=== PATIENT | male | born 1935 | race Caucasian/White ===

== ENCOUNTER 2017-02-10 15:56 | Inpatient (IN) | payer OTHER ==
--- NOTE | 2017-02-10 17:04 | DR.GENAD ---
HPI - PCP Primary Care Physician: KAIDEN PINK - HPI Comment HPI Comment: FELL FRIDAY AND IS COMPLAINING OF RIGHT LOWER CHEST PAIN. HEAD CT DONE IN [place] DID NOT REPORT ACUTE FINDINGS EXCEPT SINUSITIS. CURRENTLY ON AUGMENTIN FOR THE SAME. PATIENTSAID DIZZINESS FROM VERTIGO IS CAUSING HIM TO FALL. - Complaint/Symptoms Chief Complaint Doctors Comments: GENERALIZE WEAKNESS, VERTIGO AND ANOREXIA TIMES TWO WEEKS. Chief Complaint:: PT'S STATES " HE HAD VERTIGO IN EARLY JANUARY AND HE WAS SEEN IN [place] ER AND HE WAS DX WITH SINUSITIS AND HE HAS BEEN WEAK, FALLING , AND NOT WANTING TO EAT".... Self Treatment fo Chief Complaint: PT C/O RIGHT RIB PAIN WHEN HE COUGHS... - Nurses notes reviewed Nurses Notes Review: Yes - Source History Provided: Patient - Mode of Arrival Mode of Arrival: Wheelchair - Timing Onset of Chief Complaint: 01/29/17 Came on: Suddenly - Duration Duration: Constant Duration: Days - Severity Severity: Moderate PMH - PMH Past Medical History: Yes Past Medical History: Alzheimers, Hypertension Past Medical History Comment: HIGH CHOLESTEROL.. Past Surgical History: Yes Past Surgical History Comment: HEMEROIDECTOMY, FACIAL SURGERY ..... - Family History History of Family Medical Conditions: No - Social History Does patient currently use any type of tobacco product: No Have you used tobacco products in the last 12 months: No Type of Tobacco Use: None Does any household member use tobacco: No Alcohol Use: None Do you use any recreational Drugs:: No Lives Where: Home - infectious screening In the last 2 months have you had wt loss of >10#?: YES Have you had fever, night sweats or hemotysis?: No Have you traveled outside the country in the last 6 months?: No Isolation: Standard ROS - Review of Systems Constitutional: Weakness, Fatigue, Loss of Appetite. negative: Chills, Fever Eyes: Other (CLOSE EYES TO IMPROVE VERTIGO.). negative: Eye Pain, Discharge ENTM: No Symptoms Reported. negative: Ear Pain, Nose Discharge, Nose Congestion , Throat Pain Respiratoy: Non-Productive Cough. negative: Short of Breath, Wheezing, Hemoptysis Cardiovascular: Chest Pain Gastrointestinal/Abdominal: Abdominal Pain (RIGHT UPPER), Nausea. negative: Vomiting Genitourinary: No Symptoms Reported Neurological: Weakness, Dizziness. negative: Headache Musculoskeletal: Muscle Pain Integumentary: No Symptoms Reported Hematologic/Lymphatic: No Symptoms Reported Endocrine: No Symptoms Reported All Other Systems: Reviewed and Negative PE - Vital Signs Vitals: Temperature 99.1 F Pulse Rate 134 Respiratory Rate 20 Blood Pressure 110/78 O2 Sat by Pulse Oximetry 98 - General Limitations: No Limitations General Appearance: Alert - Head Head Exam: Normal Inspection - Eyes Eye exam: Normal Appearance - ENT ENT Exam: Normal External Ear Exam External Ear Exam: Normal External Inspection TM/Canal Exam: Bilateral Normal Nose Exam: Normal Nose Exam Mouth Exam: Normal Inspection Throat Exam: Normal Inspection - Neck Neck Exam: Trachea Midline - Chest Chest Inspection: Symmetric Chest Wall Rise - Respiratory Respiratory Exam: Normal Lung Sounds Bilat Respiratory Exam: Bilateral Clear to Auscultation - Cardiovascular Cardiovascular Exam: Regular Rate, Normal Rhythm, Normal Heart Sounds - Abdominal Exam Abdominal Exam: Normal Bowel Sounds, Soft. negative: Tenderness - Extremities Extremities Exam: Normal Inspection - Back Back Exam: Normal Inspection - Neurologic Neurological Exam: Alert, Oriented X3, CN II-XII Intact, Reflexes Normal. negative: Motor Sensory Deficit - Psychiatric Psychiatric Exam: Normal Affect, Normal Mood - Skin Skin Exam: Normal Color MDM - Additional Information Additional Information Obtained From: Family - Differential Diagnosis Differential Diagnosis: VERTIGO, RIB FRACTURES, PULMONARY CONTUSION, DEHYDRATION , PNEUMONIA Course - Treatment Treatment: SEE ORDERS - Consultation Consultation Comments: DISCUSS PATIENT WITH DR. RICHEY. HE WILL ADMIT PATIENT. - Education/Counseling Education/Counseling: Patient, Family, Education Educated On: Treatment, Diagnosis ROR - Labs Reviewed Laboratory Results Reviewed?: Yes Result Diagrams: 02/10/17 17:10 02/10/17 17:10 Laboratory: WBC 8.7 X10^3/uL (3.6-10.0) 02/10/17 17:10 RBC 4.90 X10^6/uL (4.7-6.0) 02/10/17 17:10 Hgb 14.7 g/dL (13.5-18.0) 02/10/17 17:10 Hct 43.9 % (42.0-54.0) 02/10/17 17:10 MCV 89.5 fL (80.0-100.0) 02/10/17 17:10 MCH 30.0 pg (27.0-34.0) 02/10/17 17:10 MCHC 33.5 g/dL (33.0-35.0) 02/10/17 17:10 RDW 15.4 % (11.6-16.5) 02/10/17 17:10 Plt Count 191 X10^3/uL (150.0-450.0) 02/10/17 17:10 MPV 8.2 fL (7.4-11.0) 02/10/17 17:10 Neut % 83.0 % (42.0-75.0) H 02/10/17 17:10 Lymph % 8.5 % (21.0-51.0) L 02/10/17 17:10 [place] % 6.4 % (0.0-13.0) 02/10/17 17:10 Eos % 1.4 % (0.9-2.9) 02/10/17 17:10 Baso % 0.7 % (0.2-1.0) 02/10/17 17:10 Neut # 7.2 x10^3/uL (2.2-4.8) H 02/10/17 17:10 Lymph # 0.7 X10^3/uL (1.3-2.9) L 02/10/17 17:10 [place] # 0.6 x10^3/uL (0.3-0.8) 02/10/17 17:10 Eos # 0.1 x10^3/uL (0.0-0.2) 02/10/17 17:10 Baso # 0.1 X10^3/uL (0.0-0.1) 02/10/17 17:10 Absolute Nucleated RBC 0.0 /100WBC 02/10/17 17:10 Sodium 138 mmol/L (136-145) 02/10/17 17:10 Corrected Sodium 139 mmol/L (136-145) 02/10/17 17:10 Potassium 4.3 mmol/L (3.5-5.1) 02/10/17 17:10 Chloride 102 mmol/L (98-107) 02/10/17 17:10 Carbon Dioxide 25.6 mmol/L (21-32) 02/10/17 17:10 BUN 23 mg/dL (7-18) H 02/10/17 17:10 Creatinine 1.55 mg/dL (0.70-1.30) H 02/10/17 17:10 Est GFR (MDRD) Af Amer 55 (>60) L 02/10/17 17:10 Est GFR (MDRD) Non-Af 46 (>60) L 02/10/17 17:10 Glucose 126 mg/dL (65-99) H 02/10/17 17:10 Calcium 8.1 mg/dL (8.5-10.1) L 02/10/17 17:10 Corrected Calcium 9.1 mg/dL (8.5-10.1) 02/10/17 17:10 Total Bilirubin 0.40 mg/dL (0.2-1.0) 02/10/17 17:10 AST 33 Units/L (15-37) 02/10/17 17:10 ALT 114 Units/L (12-78) H 02/10/17 17:10 Alkaline Phosphatase 103 Units/L (46-116) 02/10/17 17:10 Creatine Kinase 22 Units/L (39-308) L 02/10/17 17:10 CK-MB (CK-2) < 1.0 ng/mL (0-4.0) 02/10/17 17:10 CK/CKMB % Calc 4.6 % (<4) 02/10/17 17:10 Troponin I < 0.02 ng/mL (0-1.5) 02/10/17 17:10 B-Natriuretic Peptide 20.7 pg/mL (0-79) 02/10/17 17:10 Total Protein 6.7 g/dL (6.4-8.2) 02/10/17 17:10 Albumin 2.7 g/dL (3.4-5.0) L 02/10/17 17:10 Globulin 4.0 g/dL (2.5-4.5) 02/10/17 17:10 Albumin/Globulin Ratio 0.7 Ratio (1.1-2.1) L 02/10/17 17:10 Specimen Type Clean catch urine 02/10/17 18:23 Urine Color Yellow (YELLOW) 02/10/17 18:23 Urine Appearance Hazy (CLEAR) 02/10/17 18:23 Urine pH 5.0 (5.0 - 8.0) 02/10/17 18:23 Ur Specific [place] 1.025 (1.000-1.030) 02/10/17 18:23 Urine Protein 1+ (NEGATIVE) 02/10/17 18:23 Urine Glucose (UA) Negative (NEGATIVE) 02/10/17 18:23 Urine Ketones Negative (NEGATIVE) 02/10/17 18:23 Urine Occult Blood 1+ (NEGATIVE) 02/10/17 18:23 Urine Nitrite Negative (NEGATIVE) 02/10/17 18:23 Urine Bilirubin Negative (NEGATIVE) 02/10/17 18:23 Urine Urobilinogen Normal (NORMAL) 02/10/17 18:23 Ur Leukocyte Esterase Negative (NEGATIVE) 02/10/17 18:23 Urine RBC Rare /HPF (NEGATIVE) 02/10/17 18:23 Urine WBC Rare /HPF (NEGATIVE) 02/10/17 18:23 Ur Squamous Epith Cells Rare /HPF (NEGATIVE) 02/10/17 18:23 Urine Bacteria Negative /HPF (NEGATIVE) 02/10/17 18:23 Ur Culture Indicated? No/not indicated 02/10/17 18:23 - XRAY XRAY Interpreted by: Radiologist XRAY Findings: REPORT DISCUSS WITH PATIENT AND HIS FAMILY. - EKG Rhythm: ST - Diagnosis Discharge Problem: Sinusitis, Chest pain, Dehydration, Right rib fracture, Pulmonary contusion - Discharge Plan Disposition: ADMITTED INPATIENT Condition: Stable - Follow ups/Referrals - Instructions
[2017-02-10 17:29] LABS: BASOPHILS # (AUTO) 0.1 X10^3/uL (0.0-0.1); BASOPHILS % (AUTO) 0.7 % (0.2-1.0); EOSINOPHILS # (AUTO) 0.1 x10^3/uL (0.0-0.2); EOSINOPHILS % (AUTO) 1.4 % (0.9-2.9); HEMATOCRIT 43.9 % (42.0-54.0); HEMOGLOBIN 14.7 g/dL (13.5-18.0); LYMPHOCYTES # (AUTO) 0.7 X10^3/uL (1.3-2.9); LYMPHOCYTES % (AUTO) 8.5 % (21.0-51.0); MEAN CORPUSCULAR HGB CONC 33.5 g/dL (33.0-35.0); MEAN CORPUSCULAR VOLUME 89.5 fL (80.0-100.0); MEAN PLATELET VOLUME 8.2 fL (7.4-11.0); MONOCYTES # (AUTO) 0.6 x10^3/uL (0.3-0.8); MONOCYTES % (AUTO) 6.4 % (0.0-13.0); NEUTROPHILS # (AUTO) 7.2 x10^3/uL (2.2-4.8); PLATELET COUNT 191 X10^3/uL (150.0-450.0); RED CELL DISTRIBUTION WIDTH 15.4 % (11.6-16.5); WHITE BLOOD COUNT 8.7 X10^3/uL (3.6-10.0)
[2017-02-10 17:47] LABS: BLOOD UREA NITROGEN 23 mg/dL (7-18); CALCIUM 8.1 mg/dL (8.5-10.1); CARBON DIOXIDE 25.6 mmol/L (21-32); CHLORIDE 102 mmol/L (98-107); COR NA(FOR HYPERGLY) 139 mmol/L (136-145); CREATININE 1.55 mg/dL (0.70-1.30); GLUCOSE 126 mg/dL (65-99); SODIUM 138 mmol/L (136-145); TROPONIN I < 0.02 ng/mL (0-1.5); eGFR BLACK RACES 55 (>60); eGFR NON BLACK RACES 46 (>60)
[2017-02-10 17:51] LABS: ALANINE AMINOTRANSFERASE 114 Units/L (12-78); ALBUMIN 2.7 g/dL (3.4-5.0); ALKALINE PHOSPHATASE 103 Units/L (46-116); ASPARTATE AMINO TRANSFERASE 33 Units/L (15-37); CKMB % 4.6 % (<4); COR CA(FOR HYPOALB) 9.1 mg/dL (8.5-10.1); CREATINE KINASE 22 Units/L (39-308); CREATINE KINASE MB < 1.0 ng/mL (0-4.0); TOTAL PROTEIN 6.7 g/dL (6.4-8.2)
[2017-02-10 17:53] LABS: B-TYPE NATRIURETIC PEPTIDE 20.7 pg/mL (0-79)
[2017-02-10] MEDS ORDERED: NS 1000 ML 1,000 ML ONE (17:59)
[2017-02-10] MEDS: NS 1000 ML 1,000 ML IV SCH (18:02)
--- NOTE | 2017-02-10 18:24 | CT ---
HISTORY: Right-sided rib pain. Study: CT chest without contrast Comparison: No recent comparisons Technique: Multiple axial images of the chest were obtained from the thoracic inlet to the upper abd omen without the administration of IV contrast. Findings: The mediastinum does not demonstrate significant pathological lymphadenopathy. There is no pericard ial effusion observed. The thoracic aorta is normal in its contour without evidence for aneurysmal dilatation. Evaluation of the lung parenchyma nonspecific upper lobe ground-glass changes; right gr eater than left, which can be seen with pulmonary contusions in the setting of trauma. No pulmonary laceration or pneumothorax is seen, however. Bibasilar atelectasis is also observed. Multiple calcif ied mediastinal or hilar lymph nodes would imply prior granulomatous exposure. There are subtle and nondisplaced right lateral 10th and 11th rib fractures, age indeterminate. No other fracture or othe r acute bony injury is seen. There is mild spinal spondylosis appreciated. No pulmonary nodule or ma ss can be identified. No other fractures observed. The visualized portions of the upper abdomen ar e grossly unremarkable. IMPRESSION: Nonspecific upper lobe ground-glass changes; right greater than left, which can be seen with pulmonary contusions in the setting of trauma. No pulmonary laceration or pneumothorax is seen, however. Bibasilar atelectasis is also observed. Subtle and nondisplaced right lateral 10th and 11th rib fractures, age indeterminate. No other fracture or other acute cardiopulmonary abnormality is otherwise seen. Reported By:
[2017-02-10 18:36] LABS: BILIRUBIN,URINE NEGATIVE (NEGATIVE); BLOOD/HEMOGLOBIN,URINE 1+ (NEGATIVE); GLUCOSE, URINE NEGATIVE (NEGATIVE); KETONES,URINE NEGATIVE (NEGATIVE); LEUKOCYTE ESTERASE ,URINE NEGATIVE (NEGATIVE); NITRITES,URINE NEGATIVE (NEGATIVE); PROTEIN,URINE 1+ (NEGATIVE); UROBILINOGEN,URINE NORMAL (NORMAL)
[2017-02-10 18:41] LABS: APPEARANCE,URINE HAZY (CLEAR); COLOR,URINE YELLOW (YELLOW)
[2017-02-10 18:45] LABS: BACTERIA,URINE NEGATIVE /HPF (NEGATIVE); RBC,URINE RARE /HPF (NEGATIVE); SQUAMOUS EPITHELIAL CELL,UR RARE /HPF (NEGATIVE)
[2017-02-10] MEDS ORDERED: TUSSIONEX PENNKINETIC SUSP PO ONE (20:30)
[2017-02-10] MEDS ORDERED: TUSSIONEX PENNKINETIC SUSP ONE (20:32)
[2017-02-10] MEDS ORDERED: TUSSIONEX PENNKINETIC SUSP PO PRN (21:05)
[2017-02-10] MEDS: ZOSYN VIAL 3.375 GM 3.375 GM in NS 100 ML IV + SPIKE MINIBAG* 100 ML IV SCH (22:05)
[2017-02-10] MEDS: NEURONTIN CAP 100 MG PO SCH (22:05)
[2017-02-10 23:02] VITALS: BMI 22.2
[2017-02-10] MEDS ORDERED: AFLURIA IM ONE (23:02)
[2017-02-10] MEDS ORDERED: PREVNAR 13 IM ONE (23:02)
[2017-02-10 23:42] LABS: CKMB % 4.2 % (<4); CREATINE KINASE 24 Units/L (39-308); CREATINE KINASE MB < 1.0 ng/mL (0-4.0); TROPONIN I < 0.02 ng/mL (0-1.5)
[2017-02-11] MEDS: NS 1000 ML 1,000 ML IV SCH (02:30)
[2017-02-11] MEDS: NEURONTIN CAP 100 MG PO SCH ×3 (06:09→22:20)
[2017-02-11] MEDS: ZOSYN VIAL 3.375 GM 3.375 GM in NS 100 ML IV + SPIKE MINIBAG* 100 ML IV SCH ×3 (06:09→22:15)
[2017-02-11 06:25] LABS: ALANINE AMINOTRANSFERASE 82 Units/L (12-78); ALBUMIN 2.1 g/dL (3.4-5.0); ALKALINE PHOSPHATASE 86 Units/L (46-116); ASPARTATE AMINO TRANSFERASE 31 Units/L (15-37); BLOOD UREA NITROGEN 24 mg/dL (7-18); CALCIUM 7.5 mg/dL (8.5-10.1); CARBON DIOXIDE 25.7 mmol/L (21-32); CHLORIDE 108 mmol/L (98-107); CREATININE 1.35 mg/dL (0.70-1.30); GLUCOSE 110 mg/dL (65-99); SODIUM 140 mmol/L (136-145); TOTAL PROTEIN 5.5 g/dL (6.4-8.2); eGFR BLACK RACES > 60 (>60); eGFR NON BLACK RACES 54 (>60)
[2017-02-11 06:47] LABS: BASOPHILS # (AUTO) 0.1 X10^3/uL (0.0-0.1); BASOPHILS % (AUTO) 0.7 % (0.2-1.0); EOSINOPHILS # (AUTO) 0.2 x10^3/uL (0.0-0.2); EOSINOPHILS % (AUTO) 2.5 % (0.9-2.9); HEMATOCRIT 37.9 % (42.0-54.0); HEMOGLOBIN 12.7 g/dL (13.5-18.0); LYMPHOCYTES # (AUTO) 0.9 X10^3/uL (1.3-2.9); LYMPHOCYTES % (AUTO) 10.4 % (21.0-51.0); MEAN CORPUSCULAR HEMOGLOBIN 30.4 pg (27.0-34.0); MEAN CORPUSCULAR HGB CONC 33.6 g/dL (33.0-35.0); MEAN CORPUSCULAR VOLUME 90.4 fL (80.0-100.0); MEAN PLATELET VOLUME 8.2 fL (7.4-11.0); MONOCYTES # (AUTO) 0.6 x10^3/uL (0.3-0.8); MONOCYTES % (AUTO) 6.8 % (0.0-13.0); NEUTROPHILS # (AUTO) 6.9 x10^3/uL (2.2-4.8); NEUTROPHILS % (AUTO) 79.6 % (42.0-75.0); PLATELET COUNT 141 X10^3/uL (150.0-450.0); RED BLOOD COUNT 4.19 X10^6/uL (4.7-6.0); RED CELL DISTRIBUTION WIDTH 15.4 % (11.6-16.5); WHITE BLOOD COUNT 8.7 X10^3/uL (3.6-10.0)
[2017-02-11 06:50] LABS: CKMB % 2.6 % (<4); CREATINE KINASE 38 Units/L (39-308); TROPONIN I < 0.02 ng/mL (0-1.5)
[2017-02-11 06:58] LABS: PLATELET MORPHOLOGY COMMENT NORMAL (NORMAL)
[2017-02-11] MEDS ORDERED: ALLEGRA ONE (08:16)
[2017-02-11] MEDS: TEKTURNA PO SCH (08:20)
[2017-02-11] MEDS: ASPIRIN EC 81 MG PO SCH (08:20)
[2017-02-11] MEDS: NAMENDA TAB 10 MG PO SCH (08:20)
[2017-02-11] MEDS: ALLEGRA PO SCH (08:20)
[2017-02-11] MEDS ORDERED: PROCALAMINE 3 % 1,000 ML IV SCH (10:00)
[2017-02-11] MEDS: ALBUMIN HUMAN 25%- 100ML 100 ML IV SCH (10:21)
[2017-02-11] MEDS: PROTONIX INJ 40 MG VIAL IVP SCH (10:21)
[2017-02-11] MEDS ORDERED: HUMULIN R SUBCUT PRN (11:00)
[2017-02-11] MEDS ORDERED: CLINIMIX 4.25 %/10 % 1,000 ML with MVI INJ (ADULT) 10 ML, TRACE ELEMENTS INJ 10 ML, TPN... IV SCH ×6 (11:00)
[2017-02-11] MEDS ORDERED: NS 1000 ML 1,000 ML IV SCH (11:00)
[2017-02-11] MEDS: CLINIMIX 4.25 %/10 % 1,000 ML with MVI INJ (ADULT) 10 ML, TRACE ELEMENTS INJ 10 ML, TPN... IV SCH ×6 (12:32)
--- NOTE | 2017-02-11 16:01 | DR.H&P ---
H&P - History & Physical for Day of: H&P Date: 02/10/17 - Chief Complaint Chief Complaint: DIZZINESS, UNSTEADY GAIT, FREQUENT FALLS - Allergies Allergies/Adverse Reactions: Allergies Allergy/AdvReac Type Severity Reaction Status Date / Time Codeine Allergy Verified 02/10/17 16:02 - History of Present Illness History of Present Illness: THIS IS AN 81 YEAR OLD MALE, WHO IS A PATIENT OF OURS. HE PRESENTS TO THE EMERGENCY ROOM WITH COMPLAINTS OF DIZZINESS, UNSTEADY GAIT, FREQUENT FALLS, AND GENERALIZED WEAKNESS. PATIENTS REPORTS PATIENT HAD VERTIGO IN [place] THIS MONTH AND WAS SEEN IN [place] ER AND WAS DIAGNOSED WITH SINUSITIS AND IS CURRENTLY BEING TREATED WITH AUGMENTIN. REPORTS PATIENT HAS ALSO HAD POOR APPETITE. PATIENT REPORTS A RECENT FALL AT HOME ON FRIDAY OF LAST WEEK AND IS COMPLAINING OF RIGHT RIB PAIN WHEN COUGHING OR DEEP BREATHING. PATIENT REPORTS DIZZINESS FROM VERTIGO IS CAUSING HIM TO FALL. HE IS ALSO REPORTING RIGHT UPPER QUADRANT ABDOMINAL PAIN. LABS AND CT OBTAINED. CT OF CHEST WITHOUT CONTRAST REPORTS NONSPECIFIC UPPER LOBE GROUND-GLASS CHANGES WHICH IS SEEN WITH PULMONARY CONTUSIONS IN THE SETTING OF TRAUMA; SUBTLE AND NON-DISPLACED RIGHT LATERAL 10TH AND 11TH RIB FRACTURES. CBC WNL. CMP WNL EXCEPT: BUN/CREAT 23/1.55, GFR 46, GLUCOSE 126, CALCIUM 8.1, ALBUMIN 2.7. CARDIAC ENZYMES WNL. WE WILL ADMIT PATIENT FOR FURTHER TREATMENT AND EVALUATION. WE WILL FOLLOW UP IN AM WITH LABS. - Past Medical History Past Medical History: Alzheimers, Arthritis, Dementia, Hypertension Additional Medical History: Cataracts, Ear Infections, Pancreatitis, Painful Urination, Back Pain, Previous Blood Transfusion - Past Surgical History Additional Surgical History: Hemmorhoidectomy, Facial Reconstructive Surgery - Family History Family Medical History: Diabetes Mellitus, NC - Social History Does patient currently use any type of tobacco product: No Have you used tobacco products in the last 12 months: No Type of Tobacco Use: None Does any household member use tobacco: No Alcohol Use: None Drug Use: None - Medications Home Medications: Aliskiren Fumarate [TEKTURNA 150 MG *] 1 tab PO DAILY 02/10/17 [History Confirmed 02/10/17] Aspirin [Aspirin Adult Low Dose] 1 tab PO DAILY 02/10/17 [History Confirmed ] Gabapentin [NEURONTIN CAP 100 MG *] 1 tab PO TID 02/10/17 [History Confirmed ] Memantine HCl [NAMENDA 10 MG *] 1 tab PO DAILY 02/10/17 [History Confirmed 02/10] RX: Donepezil Hydrochloride [ARICEPT TAB 10 MG *] 1 tab PO HS 02/10/17 [History Confirmed 02/10/17] RX: Fexofenadine HCl 1 tab PO DAILY 02/10/17 [History Confirmed 02/10/17] RX: Simvastatin 1 tab PO HS 02/10/17 [History Confirmed 02/10/17] - Review of Systems Constitutional: Weakness, Malaise Eyes: No Symptoms Reported. denies: Pain, Vision Change, Conjunctivae Inflammation, Eyelid Inflammation, Redness ENT: Nose Discharge, Nose Congestion. denies: Ear Pain, Ear Discharge, Nose Pain, Mouth Pain, Mouth Swelling, Throat Pain, Throat Swelling Respiratory: Cough. denies: Shortness of Breath, Hemoptysis, SOB with Excertion , Pleuritic Pain, Sputum, Wheezing Cardiovascular: Chest Pain. denies: Palpitations, Orthopnea, Paroxysmal Noc. Dyspnea, Edema, Light Headedness Gastrointestinal: No Symptoms Reported. denies: Nausea, Vomiting, Abdominal Pain, Diarrhea, Constipation, Melena, Hematochezia Genitourinary: No Symptoms Reported. denies: Dysuria, Frequency, Retention Musculoskeletal: Other (Right Rib Pain). denies: Shoulder Pain, Arm Pain Skin: No Symptoms Reported. denies: Rash, Lesions, Jaundice, Bruising, Wound, Ecchymosis Neurological: Other (Dizziness) - Physical Exam Vital Signs: Temperature 99.3 F Pulse Rate [Left Brachial] 104 Respiratory Rate 20 Blood Pressure [Left Arm] 131/74 O2 Sat by Pulse Oximetry 94 Oriented: Normal, Time, Person, Place Eyes: Normal. negative: Blurred Vision, Diplopia, Discharge, Pain, Redness, Photophobia Ear: Normal. negative: Swelling, Ecchymosis, Hemotypanum, Abrasion, Laceration Nose: Normal. negative: Injected, Discharge, Blood Throat: Normal. negative: Tonsillar Hypertrophy, Red, Exudate Respiratory: Diminished Throughout Cardiovascular: Normal. negative: Murmur, Edema : Normal. negative: Dysuria, Hematuria, Frequency, Discharge, Testicular Pain Auscultation: Bowel Sounds: Decreased. negative: Bruit Palpation: Normal. negative: Spleen Enlarged, Liver Enlarged, Mass Pulsatile Tenderness: Diffuse, Moderate. negative: Rebound, Guarding, Rigidity Skin: Decreased Turgur. negative: Diaphoresis, Wound, Bruising, Ecchymosis Musculoskeletal: Tender (Tenderness to Right Chest Wall), Instability Psychiatric: Normal Mood Description: Calm, Appropriate Affect: Normal Speech Pattern: Clear, Appropriate - Assessment/Plan (1) Chest pain Qualifiers: Chest pain type: C Ischemic chest pain type: I Status: Acute Plan: ADMIT PATIENT, MONITOR ON TELEMETRY, SERIAL CARDIAC ENZYMES AND EKG'S, MONITOR. (2) Dehydration Status: Acute Plan: START IV FLUIDS, MONITOR LABS. (3) Pulmonary contusion Qualifiers: Encounter type: initial encounter Laterality: right Qualified Code(s): S27.321A - Contusion of lung, unilateral, initial encounter Status: Acute Plan: CONTINUE TO MONITOR. (4) Right rib fracture Qualifiers: Encounter type: initial encounter Rib fracture type: multiple ribs Fracture type: closed Fracture healing: F Qualified Code(s): S22.41XA - Multiple fractures of ribs, right side, initial encounter for closed fracture Status: Acute Plan: PAIN MANAGMENT, MONITOR. (5) Sinusitis Qualifiers: Sinusitis location: S Chronicity: C Recurrence: R Status: Acute Plan: START ZOSYN, MONITOR. (6) Poor appetite Status: Acute (7) Back pain Qualifiers: Back pain location: B Chronicity: C Back pain laterality: B Sciatica presence: S Sciatica laterality: S Status: Chronic (8) Dementia Qualifiers: Dementia type: D Alzheimer's disease onset: A Dementia behavioral disturbance: D Status: Chronic (9) Arthritis Status: Chronic
--- NOTE | 2017-02-11 17:18 | PCM.PROG ---
Progress Note - Progress Note for Day of Date: 02/11/17 - Subjective Subjective: PATIENT RESTS IN BED, AT BEDSIDE. PATIENT CONTINUES WITH WEAKNESS AND FATIGUE. HE REPORTS DIZZINESS CONTINUES WITH NO IMPROVEMENT IN SYMPTOMS. HE CONTINUES WITH UNSTEADY GAIT. HE ALSO REPORTS FREQUENT URINATION , ALONG WITH PAIN. PATIENT REPORTS RIGHT RIB PAIN CONTINUES WITH DIFFICULTY COUGHING OR DEEP BREATHING. REPORTS PATIENT ALSO CONTINUES WITH POOR APPETITE. CBC WNL EXCEPT: H/H 12.7/37.9, PLT COUNT 141. CMP WNL EXCEPT: CHL 108, BUN/CREAT 24/1.35, GFR 54, GLUCOSE 110, CALCIUM 7.5, TOT PROTEIN 5.5, ALBUMIN 2.1. WE WILL START ALBUMIN, PROCALAMINE, FLOMAX, TORADOL, AND OBTAIN MRI OF BRAIN. - Past Medical Family Social History Past Med/Fam/Surg Hx: No changes since H&P Allergies: Allergies Codeine Allergy (Verified 02/10/17 16:02) - Review of Systems ROS: No change since H&P - Vital Signs and I&O's Vital Signs: Temperature 99.3 F Pulse Rate [Left Brachial] 104 Respiratory Rate 20 Blood Pressure [Left Arm] 131/74 O2 Sat by Pulse Oximetry 94 Intake and Output: Intake & Output 02/09/17 02/10/17 02/11/17 02/12/17 11:59 11:59 11:59 11:59 Intake Total 1526 Output Total 300 Balance 1226 - Physical Exam Oriented: Normal, Time, Person, Place Eyes: Normal. negative: Blurred Vision, Diplopia, Discharge, Pain, Redness, Photophobia Ear: Normal. negative: Swelling, Ecchymosis, Hemotypanum, Abrasion, Laceration Nose: Normal. negative: Injected, Discharge, Blood Throat: Normal. negative: Tonsillar Hypertrophy, Red, Exudate Cardiovascular: Normal. negative: Murmur, Edema : Normal. negative: Dysuria, Hematuria, Frequency, Discharge, Testicular Pain Auscultation: Bowel Sounds: Decreased. negative: Bruit Palpation: Normal. negative: Spleen Enlarged, Liver Enlarged, Mass Pulsatile Tenderness: Diffuse, Moderate. negative: Rebound, Guarding, Rigidity Skin: Decreased Turgur. negative: Diaphoresis, Wound, Bruising, Ecchymosis Musculoskeletal: Tender (Tenderness to Right Chest Wall), Instability Psychiatric: Normal Mood Description: Calm, Appropriate Affect: Normal Speech Pattern: Clear, Appropriate - Laboratory and Diagnostics Result Diagrams: 02/11/17 05:40 02/11/17 05:40 Labs: Laboratory WBC 8.7 X10^3/uL (3.6-10.0) 02/11/17 05:40 RBC 4.19 X10^6/uL (4.7-6.0) L 02/11/17 05:40 Hgb 12.7 g/dL (13.5-18.0) L 02/11/17 05:40 Hct 37.9 % (42.0-54.0) L 02/11/17 05:40 MCV 90.4 fL (80.0-100.0) 02/11/17 05:40 MCH 30.4 pg (27.0-34.0) 02/11/17 05:40 MCHC 33.6 g/dL (33.0-35.0) 02/11/17 05:40 RDW 15.4 % (11.6-16.5) 02/11/17 05:40 Plt Count 141 X10^3/uL (150.0-450.0) L 02/11/17 05:40 Plt Count Comment Adequate (ADEQUATE) 02/11/17 05:40 MPV 8.2 fL (7.4-11.0) 02/11/17 05:40 Neut % 79.6 % (42.0-75.0) H 02/11/17 05:40 Lymph % 10.4 % (21.0-51.0) L 02/11/17 05:40 [place] % 6.8 % (0.0-13.0) 02/11/17 05:40 Eos % 2.5 % (0.9-2.9) 02/11/17 05:40 Baso % 0.7 % (0.2-1.0) 02/11/17 05:40 Neut # 6.9 x10^3/uL (2.2-4.8) H 02/11/17 05:40 Lymph # 0.9 X10^3/uL (1.3-2.9) L 02/11/17 05:40 [place] # 0.6 x10^3/uL (0.3-0.8) 02/11/17 05:40 Eos # 0.2 x10^3/uL (0.0-0.2) 02/11/17 05:40 Baso # 0.1 X10^3/uL (0.0-0.1) 02/11/17 05:40 Absolute Nucleated RBC 0.0 /100WBC 02/11/17 05:40 Total Counted 100 02/11/17 05:40 Neutrophils % (Manual) 86 % (39-76) H 02/11/17 05:40 Lymphocytes % (Manual) 10 % (13-43) L 02/11/17 05:40 Monocytes % (Manual) 2 % (4-9) L 02/11/17 05:40 Eosinophils % (Manual) 2 % (0-6) 02/11/17 05:40 Plt Morphology Comment Normal (NORMAL) 02/11/17 05:40 RBC Morphology Normal (NORMAL) 02/11/17 05:40 Sodium 140 mmol/L (136-145) 02/11/17 05:40 Corrected Sodium TNP 02/11/17 05:40 Potassium 4.9 mmol/L (3.5-5.1) 02/11/17 05:40 Chloride 108 mmol/L (98-107) H 02/11/17 05:40 Carbon Dioxide 25.7 mmol/L (21-32) 02/11/17 05:40 BUN 24 mg/dL (7-18) H 02/11/17 05:40 Creatinine 1.35 mg/dL (0.70-1.30) H 02/11/17 05:40 Est GFR (MDRD) Af Amer > 60 (>60) 02/11/17 05:40 Est GFR (MDRD) Non-Af 54 (>60) L 02/11/17 05:40 Glucose 110 mg/dL (65-99) H 02/11/17 05:40 Calcium 7.5 mg/dL (8.5-10.1) L 02/11/17 05:40 Corrected Calcium 9.0 mg/dL (8.5-10.1) 02/11/17 05:40 Total Bilirubin 0.30 mg/dL (0.2-1.0) 02/11/17 05:40 AST 31 Units/L (15-37) 02/11/17 05:40 ALT 82 Units/L (12-78) H 02/11/17 05:40 Alkaline Phosphatase 86 Units/L (46-116) 02/11/17 05:40 Creatine Kinase 38 Units/L (39-308) L 02/11/17 05:40 CK-MB (CK-2) 1.0 ng/mL (0-4.0) 02/11/17 05:40 CK/CKMB % Calc 2.6 % (<4) 02/11/17 05:40 Troponin I < 0.02 ng/mL (0-1.5) 02/11/17 05:40 B-Natriuretic Peptide 20.7 pg/mL (0-79) 02/10/17 17:10 Total Protein 5.5 g/dL (6.4-8.2) L 02/11/17 05:40 Albumin 2.1 g/dL (3.4-5.0) L 02/11/17 05:40 Globulin 3.4 g/dL (2.5-4.5) 02/11/17 05:40 Albumin/Globulin Ratio 0.6 Ratio (1.1-2.1) L 02/11/17 05:40 Specimen Type Clean catch urine 02/10/17 18:23 Urine Color Yellow (YELLOW) 02/10/17 18:23 Urine Appearance Hazy (CLEAR) 02/10/17 18:23 Urine pH 5.0 (5.0 - 8.0) 02/10/17 18:23 Ur Specific [place] 1.025 (1.000-1.030) 02/10/17 18:23 Urine Protein 1+ (NEGATIVE) 02/10/17 18:23 Urine Glucose (UA) Negative (NEGATIVE) 02/10/17 18:23 Urine Ketones Negative (NEGATIVE) 02/10/17 18:23 Urine Occult Blood 1+ (NEGATIVE) 02/10/17 18:23 Urine Nitrite Negative (NEGATIVE) 02/10/17 18:23 Urine Bilirubin Negative (NEGATIVE) 02/10/17 18:23 Urine Urobilinogen Normal (NORMAL) 02/10/17 18:23 Ur Leukocyte Esterase Negative (NEGATIVE) 02/10/17 18:23 Urine RBC Rare /HPF (NEGATIVE) 02/10/17 18:23 Urine WBC Rare /HPF (NEGATIVE) 02/10/17 18:23 Ur Squamous Epith Cells Rare /HPF (NEGATIVE) 02/10/17 18:23 Urine Bacteria Negative /HPF (NEGATIVE) 02/10/17 18:23 Ur Culture Indicated? No/not indicated 02/10/17 18:23 - Plan (1) Dizziness Status: Acute Plan: OBTAIN MRI OF BRAIN, CONTINUE TO MONITOR. (2) Dehydration Status: Acute Plan: CONTINUE IV FLUIDS, MONITOR LABS. (3) Chest pain Status: Acute Qualifiers: Chest pain type: chest pain on breathing Ischemic chest pain type: I Qualified Code(s): R07.1 - Chest pain on breathing Plan: START TORADOL, CONTINUE MONITOR ON TELEMETRY, MONITOR. (4) Poor appetite Status: Acute Plan: START PROCALAMINE, ALBUMIN, MONITOR. (5) Hypoalbuminemia Status: Acute Plan: START ALBUMIN, MONITOR. (6) Pulmonary contusion Status: Acute Qualifiers: Encounter type: initial encounter Laterality: right Qualified Code(s): S27.321A - Contusion of lung, unilateral, initial encounter Plan: CONTINUE TO MONITOR. (7) Right rib fracture Status: Acute Qualifiers: Encounter type: initial encounter Rib fracture type: multiple ribs Fracture type: closed Fracture healing: F Qualified Code(s): S22.41XA - Multiple fractures of ribs, right side, initial encounter for closed fracture Plan: PAIN MANAGMENT, MONITOR. (8) Sinusitis Status: Acute Qualifiers: Sinusitis location: S Chronicity: C Recurrence: R Plan: CONTINUE ZOSYN, MONITOR. (9) Back pain Status: Chronic Qualifiers: Back pain location: B Chronicity: C Back pain laterality: B Sciatica presence: S Sciatica laterality: S (10) Dementia Status: Chronic Qualifiers: Dementia type: D Alzheimer's disease onset: A Dementia behavioral disturbance: D (11) Arthritis Status: Chronic
[2017-02-11] MEDS: ZOCOR TAB 40 MG PO SCH (20:54)
[2017-02-11] MEDS: ARICEPT TAB 10 MG PO SCH (20:54)
[2017-02-11] MEDS: FLOMAX PO SCH (20:54)
[2017-02-11] MEDS ORDERED: PREVNAR 13 IM ONE (21:15)
[2017-02-11] MEDS ORDERED: AFLURIA IM ONE (22:00)
[2017-02-11] MEDS: TORADOL 15 MG VIAL IVP PRN (23:16)
[2017-02-11] MEDS: TYLENOL 325 MG TAB PO PRN (23:17)
[2017-02-12] MEDS: CLINIMIX 4.25 %/10 % 1,000 ML with MVI INJ (ADULT) 10 ML, TRACE ELEMENTS INJ 10 ML, TPN... IV SCH ×18 (01:21→18:35)
[2017-02-12] MEDS: NEURONTIN CAP 100 MG PO SCH ×3 (05:50→21:02)
[2017-02-12] MEDS: ZOSYN VIAL 3.375 GM 3.375 GM in NS 100 ML IV + SPIKE MINIBAG* 100 ML IV SCH ×3 (05:51→21:02)
[2017-02-12 06:19] LABS: BASOPHILS % (AUTO) 0.3 % (0.2-1.0); EOSINOPHILS # (AUTO) 0.2 x10^3/uL (0.0-0.2); EOSINOPHILS % (AUTO) 2.6 % (0.9-2.9); HEMATOCRIT 32.1 % (42.0-54.0); LYMPHOCYTES # (AUTO) 0.8 X10^3/uL (1.3-2.9); LYMPHOCYTES % (AUTO) 11.7 % (21.0-51.0); MEAN CORPUSCULAR HEMOGLOBIN 30.6 pg (27.0-34.0); MEAN CORPUSCULAR HGB CONC 34.2 g/dL (33.0-35.0); MEAN CORPUSCULAR VOLUME 89.4 fL (80.0-100.0); MEAN PLATELET VOLUME 7.7 fL (7.4-11.0); MONOCYTES # (AUTO) 0.5 x10^3/uL (0.3-0.8); MONOCYTES % (AUTO) 6.5 % (0.0-13.0); NEUTROPHILS # (AUTO) 5.7 x10^3/uL (2.2-4.8); NEUTROPHILS % (AUTO) 78.9 % (42.0-75.0); PLATELET COUNT 158 X10^3/uL (150.0-450.0); RED BLOOD COUNT 3.59 X10^6/uL (4.7-6.0); RED CELL DISTRIBUTION WIDTH 15.4 % (11.6-16.5); WHITE BLOOD COUNT 7.2 X10^3/uL (3.6-10.0)
[2017-02-12 06:40] LABS: ALANINE AMINOTRANSFERASE 58 Units/L (12-78); ALBUMIN 2.3 g/dL (3.4-5.0); ALKALINE PHOSPHATASE 66 Units/L (46-116); ASPARTATE AMINO TRANSFERASE 22 Units/L (15-37); BLOOD UREA NITROGEN 29 mg/dL (7-18); CALCIUM 7.9 mg/dL (8.5-10.1); CARBON DIOXIDE 23.8 mmol/L (21-32); CHLORIDE 108 mmol/L (98-107); COR CA(FOR HYPOALB) 9.3 mg/dL (8.5-10.1); CREATININE 1.44 mg/dL (0.70-1.30); GLUCOSE 93 mg/dL (65-99); SODIUM 139 mmol/L (136-145); TOTAL PROTEIN 5.3 g/dL (6.4-8.2); eGFR BLACK RACES 60 (>60); eGFR NON BLACK RACES 50 (>60)
--- NOTE | 2017-02-12 06:45 | CT ---
HISTORY: Dizziness, sinusitis Study: CT sinuses without contrast Comparison: None Technique: Axial non contrast images with coronal and sagittal reformats. Dose reduction procedures were used with MA/kv adjusted for body size. Findings: The frontal, right ethmoid, right sphenoid, and left maxillary sinuses are clear. There is an air-fl uid level in a hypoplastic right maxillary sinus consistent with acute sinusitis. There is a small l eft sphenoid sinus retention cyst. There is inflammatory change in a left posterior ethmoid air cell . The ostiomeatal complexes are patent. There is leftward nasal septal deviation with a leftward dir ected a 5.4 millimeter septal spur. The middle ear spaces and mastoid air cells are clear. IMPRESSION: Acute right maxillary sinusitis in a hypoplastic right maxillary sinus Inflammatory mucosal changes in a left posterior ethmoid air cell 5 millimeter left sphenoid sinus retention cyst Leftward nasal septal deviation with a 5.4 millimeter leftward directed septal spur Reported By:
--- NOTE | 2017-02-12 07:07 | MRI ---
HISTORY: Dizziness, blurred vision Study: MRI of the brain done without and with IV gadolinium contrast materials Comparison: No priors Technique: Multiplanar multi-sequence MRI of the brain was obtained utilizing standard departmental protocol. Sagittal and axial T1 weighted images were obtained. Axial T2 and flair weighted images were performed as well. Axial diffusion weighted and ADC trace mapping was performed. Following adm inistration of 15 cubic centimeters of Omniscan contrast materials intravenously, T1 sequences were performed in axial and coronal planes. Findings: The midline structures appear unremarkable. The evaluation of the brain parenchyma demonstrates no abnormal signal characteristics to suggest intraparenchymal mass or hemorrhage. No extra-axial flui d collections are observed. Atrophic changes are present with prominent ventricles and accentuation of the cortical sulci. The CP angle is normal in its appearance without brainstem mass or evidence for acoustic neuroma. The flow voids on both T1 and T2 weighted imaging appear unremarkable. Evalu ation of the diffusion weighted imaging does not demonstrate abnormal signal characteristics to sugg est acute ischemic change. The extracranial structures are unremarkable. IMPRESSION: Mild and age-appropriate atrophic changes. No evidence of edema, mass or hemorrhage. No evidence of infarction is seen. Reported By:
--- NOTE | 2017-02-12 08:01 | MRI ---
HISTORY: Dizziness, blurred vision Study: MRA of the brain Comparison: No priors Technique: 3-D [id number] imaging of the intracranial circulation was performed. Findings: The anterior circulation demonstrates normal anatomic findings. The internal carotid artery, M1 seg ment, and A1 segments do not demonstrates atherosclerotic changes. No aneurysmal changes or evidenc e for vascular malformation can be identified. There is some asymmetry in the watershed branches the right MCA circulation . There are fewer small branches seen on the right side. The basilar artery a ppears small. This may be secondary to atherosclerotic change . Fortunately , the posterior cerebral vessels are largely supplied via a patent posterior communicating arteries bilaterally. Some asymme try is noted with less robust signals from the right distal posterior cerebral artery also. IMPRESSION: Decreased watershed branches involving the right MCA circulation. There is a small basilar artery wh ich may be secondary to atherosclerotic change. Fortunately the posterior cerebral vessels are large ly supplied via a patent posterior communicating arteries bilaterally. There is less robust signal f rom the right distal posterior cerebral artery also. Reported By:
[2017-02-12] MEDS ORDERED: ALLEGRA ONE (08:15)
[2017-02-12] MEDS: ALBUMIN HUMAN 25%- 100ML 100 ML IV SCH (08:36)
[2017-02-12] MEDS: PROTONIX INJ 40 MG VIAL IVP SCH (08:36)
[2017-02-12] MEDS: TEKTURNA PO SCH (08:36)
[2017-02-12] MEDS: ALLEGRA PO SCH (08:37)
[2017-02-12] MEDS: NAMENDA TAB 10 MG PO SCH (08:37)
[2017-02-12] MEDS: ASPIRIN EC 81 MG PO SCH (08:37)
[2017-02-12] MEDS ORDERED: DUONEB 0.5 MG/3 MG ONE (10:58)
[2017-02-12] MEDS: FLONASE NASAL SPRAY ENOSTRIL SCH (11:01)
[2017-02-12] MEDS: NYSTATIN POWDER TOP SCH ×2 (11:01→20:54)
[2017-02-12] MEDS: TORADOL 15 MG VIAL IVP PRN ×2 (11:14→21:58)
[2017-02-12] MEDS: DUONEB 0.5 MG/3 MG NEB SCH ×3 (12:55→21:21)
[2017-02-12] MEDS: SNACK - Diabetic Appropriate PO SCH (20:54)
[2017-02-12] MEDS: SINGULAIR TAB 10 MG PO SCH (20:55)
[2017-02-12] MEDS: FLOMAX PO SCH (20:55)
[2017-02-12] MEDS: ZOCOR TAB 40 MG PO SCH (20:55)
[2017-02-12] MEDS: ARICEPT TAB 10 MG PO SCH (20:55)
[2017-02-12] MEDS: TYLENOL 325 MG TAB PO PRN (21:06)
[2017-02-12] MEDS ORDERED: VISTARIL PO PRN (22:30)
[2017-02-13] MEDS: CLINIMIX 4.25 %/10 % 1,000 ML with MVI INJ (ADULT) 10 ML, TRACE ELEMENTS INJ 10 ML, TPN... IV SCH ×24 (04:11→21:50)
[2017-02-13] MEDS: ZOSYN VIAL 3.375 GM 3.375 GM in NS 100 ML IV + SPIKE MINIBAG* 100 ML IV SCH ×3 (05:36→21:00)
[2017-02-13] MEDS: NEURONTIN CAP 100 MG PO SCH (05:36)
[2017-02-13 06:13] LABS: BASOPHILS % (AUTO) 0.3 % (0.2-1.0); EOSINOPHILS # (AUTO) 0.1 x10^3/uL (0.0-0.2); EOSINOPHILS % (AUTO) 1.6 % (0.9-2.9); HEMATOCRIT 31.7 % (42.0-54.0); HEMOGLOBIN 10.6 g/dL (13.5-18.0); LYMPHOCYTES # (AUTO) 0.7 X10^3/uL (1.3-2.9); LYMPHOCYTES % (AUTO) 9.9 % (21.0-51.0); MEAN CORPUSCULAR HGB CONC 33.4 g/dL (33.0-35.0); MEAN CORPUSCULAR VOLUME 89.9 fL (80.0-100.0); MEAN PLATELET VOLUME 7.9 fL (7.4-11.0); MONOCYTES # (AUTO) 0.5 x10^3/uL (0.3-0.8); MONOCYTES % (AUTO) 7.1 % (0.0-13.0); NEUTROPHILS % (AUTO) 81.1 % (42.0-75.0); PLATELET COUNT 182 X10^3/uL (150.0-450.0); RED BLOOD COUNT 3.53 X10^6/uL (4.7-6.0); RED CELL DISTRIBUTION WIDTH 15.2 % (11.6-16.5); WHITE BLOOD COUNT 7.3 X10^3/uL (3.6-10.0)
[2017-02-13 06:21] LABS: ALBUMIN 2.4 g/dL (3.4-5.0); CARBON DIOXIDE 22.2 mmol/L (21-32); COR CA(FOR HYPOALB) 9.3 mg/dL (8.5-10.1); CREATININE 1.56 mg/dL (0.70-1.30); TOTAL PROTEIN 5.5 g/dL (6.4-8.2)
--- NOTE | 2017-02-13 06:40 | RAD ---
HISTORY: Weakness, dehydration, vertigo Study: Single-view chest, done portably Comparison: February 10, 2017 Findings: Cardiac monitoring electrodes are noted on the chest. The trachea is midline. There is cardiomegaly with aortic uncoiling. Pulmonary vascular congestion is seen with bilateral perihilar foci of edema or infiltrate.. No pleural fluid or pneumothorax is seen. Osseous structures are intact. IMPRESSION: Cardiomegaly with pulmonary vascular congestion and interval development of bilateral perihilar foci of edema or infiltrate. Reported By:
[2017-02-13] MEDS ORDERED: ALLEGRA ONE (08:03)
[2017-02-13] MEDS: FLONASE NASAL SPRAY ENOSTRIL SCH (09:04)
[2017-02-13] MEDS: ALBUMIN HUMAN 25%- 100ML 100 ML IV SCH (09:05)
[2017-02-13] MEDS: PROTONIX INJ 40 MG VIAL IVP SCH (09:06)
[2017-02-13] MEDS: TEKTURNA PO SCH (09:07)
[2017-02-13] MEDS: NAMENDA TAB 10 MG PO SCH (09:07)
[2017-02-13] MEDS: ASPIRIN EC 81 MG PO SCH (09:07)
[2017-02-13] MEDS: ALLEGRA PO SCH (09:07)
[2017-02-13] MEDS: NYSTATIN POWDER TOP SCH ×2 (09:08→20:41)
[2017-02-13] MEDS: DUONEB 0.5 MG/3 MG NEB SCH (09:15)
[2017-02-13] MEDS: COLACE CAP 100 MG PO SCH ×2 (12:00→20:37)
[2017-02-13] MEDS: XOPENEX 1.25 MG/3 ML NEB SCH ×3 (12:12→21:13)
--- NOTE | 2017-02-13 16:48 | PCM.PROG ---
Progress Note - Progress Note for Day of Date: 02/12/17 - Subjective Subjective: PATIENT RESTS IN BED, AT BEDSIDE. PATIENT REPORTS GENERALIZED WEAKNESS AND FATIGUE CONTINUES ALONG WITH POOR APPETITE. HE REPORTS DIZZINESS CONTINUES WITH NO IMPROVEMENT IN SYMPTOMS. HE CONTINUES WITH UNSTEADY GAIT. PHYSICAL THERAPY IS WORKING WITH PATIENT ON STRENTHENING. PATIENT REPORTS RIGHT RIB PAIN CONTINUES WITH DIFFICULTY COUGHING OR DEEP BREATHING. REPORTS PATIENT ALSO CONTINUES WITH POOR APPETITE. WE DISCUSS MRI OF BRAIN AND CT OF SINUSES ALONG WITH MAXILLARY SINUSITIS. PATIENT IS NOTED WITH INTERTRIGO TO SKIN FOLDS. CBC WNL EXCEPT: H/H 11.0/32.1. CMP WNL EXCEPT: CHL 108, BUN/ CREAT 29/1.44, GFR 50, CALCIUM 7.9, TOT PROTEIN 5.3, ALBUMIN 2.3. WE WILL START FLONASE, SINGULAIR, DUONEBS, AND NYSTATIN POWDER. WE WILL CONTINUE ALBUMIN, PROCALAMINE, FLOMAX, AND TORADOL. - Past Medical Family Social History Past Med/Fam/Surg Hx: No changes since H&P Allergies: Allergies Codeine Allergy (Verified 02/10/17 16:02) - Review of Systems ROS: No change since H&P - Vital Signs and I&O's Vital Signs: Temperature 98.7 F Pulse Rate [Left Brachial] 125 Pulse Rate 107 Respiratory Rate 24 Blood Pressure [Right Arm] 115/80 Blood Pressure [Left Arm] 101/60 O2 Sat by Pulse Oximetry 94 Intake and Output: Intake & Output 02/11/17 02/12/17 02/13/17 02/14/17 11:59 11:59 11:59 11:59 Intake Total 3393 3707 Output Total 1250 725 Balance 2143 2982 - Physical Exam Oriented: Normal, Time, Person, Place Eyes: Normal. negative: Blurred Vision, Diplopia, Discharge, Pain, Redness, Photophobia Ear: Normal. negative: Swelling, Ecchymosis, Hemotypanum, Abrasion, Laceration Nose: Normal. negative: Injected, Discharge, Blood Throat: Normal. negative: Tonsillar Hypertrophy, Red, Exudate Respiratory: Normal Cardiovascular: Normal. negative: Murmur, Edema : Normal. negative: Dysuria, Hematuria, Frequency, Discharge, Testicular Pain Auscultation: Bowel Sounds: Decreased. negative: Bruit Palpation: Normal. negative: Spleen Enlarged, Liver Enlarged, Mass Pulsatile Tenderness: Diffuse, Moderate. negative: Rebound, Guarding, Rigidity Skin: Decreased Turgur. negative: Diaphoresis, Wound, Bruising, Ecchymosis Musculoskeletal: Tender (Tenderness to Right Chest Wall), Instability Psychiatric: Normal Mood Description: Calm, Appropriate Affect: Normal Speech Pattern: Clear - Laboratory and Diagnostics Result Diagrams: 02/13/17 05:20 02/13/17 05:20 Labs: Laboratory WBC 7.3 X10^3/uL (3.6-10.0) 02/13/17 05:20 RBC 3.53 X10^6/uL (4.7-6.0) L 02/13/17 05:20 Hgb 10.6 g/dL (13.5-18.0) L 02/13/17 05:20 Hct 31.7 % (42.0-54.0) L 02/13/17 05:20 MCV 89.9 fL (80.0-100.0) 02/13/17 05:20 MCH 30.0 pg (27.0-34.0) 02/13/17 05:20 MCHC 33.4 g/dL (33.0-35.0) 02/13/17 05:20 RDW 15.2 % (11.6-16.5) 02/13/17 05:20 Plt Count 182 X10^3/uL (150.0-450.0) 02/13/17 05:20 Plt Count Comment Adequate (ADEQUATE) 02/11/17 05:40 MPV 7.9 fL (7.4-11.0) 02/13/17 05:20 Neut % 81.1 % (42.0-75.0) H 02/13/17 05:20 Lymph % 9.9 % (21.0-51.0) L 02/13/17 05:20 [place] % 7.1 % (0.0-13.0) 02/13/17 05:20 Eos % 1.6 % (0.9-2.9) 02/13/17 05:20 Baso % 0.3 % (0.2-1.0) 02/13/17 05:20 Neut # 6.0 x10^3/uL (2.2-4.8) H 02/13/17 05:20 Lymph # 0.7 X10^3/uL (1.3-2.9) L 02/13/17 05:20 [place] # 0.5 x10^3/uL (0.3-0.8) 02/13/17 05:20 Eos # 0.1 x10^3/uL (0.0-0.2) 02/13/17 05:20 Baso # 0.0 X10^3/uL (0.0-0.1) 02/13/17 05:20 Absolute Nucleated RBC 0.0 /100WBC 02/13/17 05:20 Total Counted 100 02/11/17 05:40 Neutrophils % (Manual) 86 % (39-76) H 02/11/17 05:40 Lymphocytes % (Manual) 10 % (13-43) L 02/11/17 05:40 Monocytes % (Manual) 2 % (4-9) L 02/11/17 05:40 Eosinophils % (Manual) 2 % (0-6) 02/11/17 05:40 Plt Morphology Comment Normal (NORMAL) 02/11/17 05:40 RBC Morphology Normal (NORMAL) 02/11/17 05:40 Sodium 138 mmol/L (136-145) 02/13/17 05:20 Corrected Sodium 138 mmol/L (136-145) 02/13/17 05:20 Potassium 4.7 mmol/L (3.5-5.1) 02/13/17 05:20 Chloride 108 mmol/L (98-107) H 02/13/17 05:20 Carbon Dioxide 22.2 mmol/L (21-32) 02/13/17 05:20 BUN 37 mg/dL (7-18) H 02/13/17 05:20 Creatinine 1.56 mg/dL (0.70-1.30) H 02/13/17 05:20 Est GFR (MDRD) Af Amer 55 (>60) L 02/13/17 05:20 Est GFR (MDRD) Non-Af 45 (>60) L 02/13/17 05:20 Glucose 114 mg/dL (65-99) H 02/13/17 05:20 Calcium 8.0 mg/dL (8.5-10.1) L 02/13/17 05:20 Corrected Calcium 9.3 mg/dL (8.5-10.1) 02/13/17 05:20 Total Bilirubin 0.30 mg/dL (0.2-1.0) 02/13/17 05:20 AST 23 Units/L (15-37) 02/13/17 05:20 ALT 46 Units/L (12-78) 02/13/17 05:20 Alkaline Phosphatase 76 Units/L (46-116) 02/13/17 05:20 Creatine Kinase 38 Units/L (39-308) L 02/11/17 05:40 CK-MB (CK-2) 1.0 ng/mL (0-4.0) 02/11/17 05:40 CK/CKMB % Calc 2.6 % (<4) 02/11/17 05:40 Troponin I < 0.02 ng/mL (0-1.5) 02/11/17 05:40 B-Natriuretic Peptide 20.7 pg/mL (0-79) 02/10/17 17:10 Total Protein 5.5 g/dL (6.4-8.2) L 02/13/17 05:20 Albumin 2.4 g/dL (3.4-5.0) L 02/13/17 05:20 Globulin 3.1 g/dL (2.5-4.5) 02/13/17 05:20 Albumin/Globulin Ratio 0.8 Ratio (1.1-2.1) L 02/13/17 05:20 Specimen Type Clean catch urine 02/10/17 18:23 Urine Color Yellow (YELLOW) 02/10/17 18:23 Urine Appearance Hazy (CLEAR) 02/10/17 18:23 Urine pH 5.0 (5.0 - 8.0) 02/10/17 18:23 Ur Specific [place] 1.025 (1.000-1.030) 02/10/17 18:23 Urine Protein 1+ (NEGATIVE) 02/10/17 18:23 Urine Glucose (UA) Negative (NEGATIVE) 02/10/17 18:23 Urine Ketones Negative (NEGATIVE) 02/10/17 18:23 Urine Occult Blood 1+ (NEGATIVE) 02/10/17 18:23 Urine Nitrite Negative (NEGATIVE) 02/10/17 18:23 Urine Bilirubin Negative (NEGATIVE) 02/10/17 18:23 Urine Urobilinogen Normal (NORMAL) 02/10/17 18:23 Ur Leukocyte Esterase Negative (NEGATIVE) 02/10/17 18:23 Urine RBC Rare /HPF (NEGATIVE) 02/10/17 18:23 Urine WBC Rare /HPF (NEGATIVE) 02/10/17 18:23 Ur Squamous Epith Cells Rare /HPF (NEGATIVE) 02/10/17 18:23 Urine Bacteria Negative /HPF (NEGATIVE) 02/10/17 18:23 Ur Culture Indicated? No/not indicated 02/10/17 18:23 - Plan (1) Dizziness Status: Acute Plan: CONTINUE TO MONITOR. (2) Sinusitis Status: Acute Qualifiers: Sinusitis location: maxillary Chronicity: acute Recurrence: non- recurrent Qualified Code(s): J01.00 - Acute maxillary sinusitis, unspecified Plan: CONTINUE ZOSYN, MONITOR. (3) Dehydration Status: Acute Plan: CONTINUE IV FLUIDS, MONITOR LABS. (4) Chest pain Status: Acute Qualifiers: Chest pain type: chest pain on breathing Ischemic chest pain type: I Qualified Code(s): R07.1 - Chest pain on breathing Plan: CONTINUE TORADOL, CONTINUE MONITOR ON TELEMETRY, MONITOR. (5) Poor appetite Status: Acute Plan: CONTINUE PROCALAMINE, ALBUMIN, MONITOR. (6) Hypoalbuminemia Status: Acute Plan: CONTINUE ALBUMIN, MONITOR. (7) Pulmonary contusion Status: Acute Qualifiers: Encounter type: initial encounter Laterality: right Qualified Code(s): S27.321A - Contusion of lung, unilateral, initial encounter Plan: CONTINUE TO MONITOR. (8) Right rib fracture Status: Acute Qualifiers: Encounter type: initial encounter Rib fracture type: multiple ribs Fracture type: closed Fracture healing: F Qualified Code(s): S22.41XA - Multiple fractures of ribs, right side, initial encounter for closed fracture Plan: PAIN MANAGMENT, MONITOR. (9) Back pain Status: Chronic Qualifiers: Back pain location: low back pain Chronicity: chronic Back pain laterality: bilateral Sciatica presence: without sciatica Sciatica laterality: S Qualified Code(s): M54.5 - Low back pain; G89.29 - Other chronic pain (10) Dementia Status: Chronic Qualifiers: Dementia type: vascular dementia Alzheimer's disease onset: A Dementia behavioral disturbance: without behavioral disturbance Qualified Code(s): F01.50 - Vascular dementia without behavioral disturbance (11) Arthritis Status: Chronic
--- NOTE | 2017-02-13 17:38 | PCM.PROG ---
Progress Note - Progress Note for Day of Date: 02/13/17 - Subjective Subjective: PATIENT RESTS IN BED, AT BEDSIDE. PATIENT REPORTS HE HAS NO APPETITE AND HAS CHILLS THIS MORNING. HE IS RESTING IN BED WITH THREE BLANKETS. TEMPERATURE IS 98.8. REPORTS PATIENT HAS BEEN VERY SLEEPY THROUGHOUT THE DAY YESTERDAY AND LAST NIGHT. PATIENT REPORTS GENERALIZED WEAKNESS AND FATIGUE CONTINUES ALONG WITH POOR APPETITE. ON AUSCULTATION, LUNGS ARE NOTED WITH RHONCHI THROUGHOUT. PATIENT WAS STARTED ON DUONEBS YESTERDAY AND HAD AN ELEVATED HEARTRATE WITH ALBUTEROL. HE REPORTS DIZZINESS CONTINUES WITH NO IMPROVEMENT IN SYMPTOMS. HE CONTINUES WITH UNSTEADY GAIT. PHYSICAL THERAPY IS WORKING WITH PATIENT ON STRENTHENING. PATIENT REPORTS RIGHT RIB PAIN CONTINUES. PATIENT HAS NOT HAD A BOWEL MOVEMENT SINCE ADMISSION. CBC WNL EXCEPT: H/H 10.6/31.7. CMP WNL EXCEPT: CHL 108, BUN/CREAT 37/1.56, GFR 45, GLUCOSE 114, CALCIUM 8.0, TOT PROTEIN 5.5, ALBUMIN 2.4. CHEST XRAY REPORTS CARDIOMEGALY WITH PULMONARY VASCULAR CONGESTION AND INTERVAL DEVELOPMENT OF BILATERAL PERIHILAR FOCI OF EDEMA OR INFILTRATE. WE WILL DISCONTINUE TUSSIONEX, NEURONTIN, AND VISTARIL. WE WILL START MIRALAX, COLACE, CHANGE NEBS TO XOPENEX, AND CONTINUE CURRENT TREATMENT. WE WILL CONTINUE TO MONITOR AND FOLLOW UP IN AM WITH LABS. - Past Medical Family Social History Past Med/Fam/Surg Hx: No changes since H&P Allergies: Allergies Codeine Allergy (Verified 02/10/17 16:02) - Review of Systems ROS: No change since H&P - Vital Signs and I&O's Vital Signs: Temperature 98.7 F Pulse Rate [Left Brachial] 125 Pulse Rate 107 Respiratory Rate 24 Blood Pressure [Right Arm] 115/80 Blood Pressure [Left Arm] 101/60 O2 Sat by Pulse Oximetry 94 Intake and Output: Intake & Output 02/11/17 02/12/17 02/13/17 02/14/17 11:59 11:59 11:59 11:59 Intake Total 3393 3707 922 Output Total 1250 725 350 Balance 2143 2982 572 - Physical Exam Oriented: Normal, Time, Person, Place Eyes: Normal. negative: Blurred Vision, Diplopia, Discharge, Pain, Redness, Photophobia Ear: Normal. negative: Swelling, Ecchymosis, Hemotypanum, Abrasion, Laceration Nose: Normal. negative: Injected, Discharge, Blood Throat: Normal. negative: Tonsillar Hypertrophy, Red, Exudate Respiratory: Normal Cardiovascular: Normal. negative: Murmur, Edema : Normal. negative: Dysuria, Hematuria, Frequency, Discharge, Testicular Pain Auscultation: Bowel Sounds: Decreased. negative: Bruit Palpation: Normal. negative: Spleen Enlarged, Liver Enlarged, Mass Pulsatile Tenderness: Diffuse, Moderate. negative: Rebound, Guarding, Rigidity Skin: Decreased Turgur. negative: Diaphoresis, Wound, Bruising, Ecchymosis Musculoskeletal: Tender (Tenderness to Right Chest Wall), Instability Psychiatric: Normal Mood Description: Calm, Appropriate Affect: Normal Speech Pattern: Clear - Laboratory and Diagnostics Result Diagrams: 02/13/17 05:20 02/13/17 05:20 Labs: Laboratory WBC 7.3 X10^3/uL (3.6-10.0) 02/13/17 05:20 RBC 3.53 X10^6/uL (4.7-6.0) L 02/13/17 05:20 Hgb 10.6 g/dL (13.5-18.0) L 02/13/17 05:20 Hct 31.7 % (42.0-54.0) L 02/13/17 05:20 MCV 89.9 fL (80.0-100.0) 02/13/17 05:20 MCH 30.0 pg (27.0-34.0) 02/13/17 05:20 MCHC 33.4 g/dL (33.0-35.0) 02/13/17 05:20 RDW 15.2 % (11.6-16.5) 02/13/17 05:20 Plt Count 182 X10^3/uL (150.0-450.0) 02/13/17 05:20 Plt Count Comment Adequate (ADEQUATE) 02/11/17 05:40 MPV 7.9 fL (7.4-11.0) 02/13/17 05:20 Neut % 81.1 % (42.0-75.0) H 02/13/17 05:20 Lymph % 9.9 % (21.0-51.0) L 02/13/17 05:20 [place] % 7.1 % (0.0-13.0) 02/13/17 05:20 Eos % 1.6 % (0.9-2.9) 02/13/17 05:20 Baso % 0.3 % (0.2-1.0) 02/13/17 05:20 Neut # 6.0 x10^3/uL (2.2-4.8) H 02/13/17 05:20 Lymph # 0.7 X10^3/uL (1.3-2.9) L 02/13/17 05:20 [place] # 0.5 x10^3/uL (0.3-0.8) 02/13/17 05:20 Eos # 0.1 x10^3/uL (0.0-0.2) 02/13/17 05:20 Baso # 0.0 X10^3/uL (0.0-0.1) 02/13/17 05:20 Absolute Nucleated RBC 0.0 /100WBC 02/13/17 05:20 Total Counted 100 02/11/17 05:40 Neutrophils % (Manual) 86 % (39-76) H 02/11/17 05:40 Lymphocytes % (Manual) 10 % (13-43) L 02/11/17 05:40 Monocytes % (Manual) 2 % (4-9) L 02/11/17 05:40 Eosinophils % (Manual) 2 % (0-6) 02/11/17 05:40 Plt Morphology Comment Normal (NORMAL) 02/11/17 05:40 RBC Morphology Normal (NORMAL) 02/11/17 05:40 Sodium 138 mmol/L (136-145) 02/13/17 05:20 Corrected Sodium 138 mmol/L (136-145) 02/13/17 05:20 Potassium 4.7 mmol/L (3.5-5.1) 02/13/17 05:20 Chloride 108 mmol/L (98-107) H 02/13/17 05:20 Carbon Dioxide 22.2 mmol/L (21-32) 02/13/17 05:20 BUN 37 mg/dL (7-18) H 02/13/17 05:20 Creatinine 1.56 mg/dL (0.70-1.30) H 02/13/17 05:20 Est GFR (MDRD) Af Amer 55 (>60) L 02/13/17 05:20 Est GFR (MDRD) Non-Af 45 (>60) L 02/13/17 05:20 Glucose 114 mg/dL (65-99) H 02/13/17 05:20 Calcium 8.0 mg/dL (8.5-10.1) L 02/13/17 05:20 Corrected Calcium 9.3 mg/dL (8.5-10.1) 02/13/17 05:20 Total Bilirubin 0.30 mg/dL (0.2-1.0) 02/13/17 05:20 AST 23 Units/L (15-37) 02/13/17 05:20 ALT 46 Units/L (12-78) 02/13/17 05:20 Alkaline Phosphatase 76 Units/L (46-116) 02/13/17 05:20 Creatine Kinase 38 Units/L (39-308) L 02/11/17 05:40 CK-MB (CK-2) 1.0 ng/mL (0-4.0) 02/11/17 05:40 CK/CKMB % Calc 2.6 % (<4) 02/11/17 05:40 Troponin I < 0.02 ng/mL (0-1.5) 02/11/17 05:40 B-Natriuretic Peptide 20.7 pg/mL (0-79) 02/10/17 17:10 Total Protein 5.5 g/dL (6.4-8.2) L 02/13/17 05:20 Albumin 2.4 g/dL (3.4-5.0) L 02/13/17 05:20 Globulin 3.1 g/dL (2.5-4.5) 02/13/17 05:20 Albumin/Globulin Ratio 0.8 Ratio (1.1-2.1) L 02/13/17 05:20 Specimen Type Clean catch urine 02/10/17 18:23 Urine Color Yellow (YELLOW) 02/10/17 18:23 Urine Appearance Hazy (CLEAR) 02/10/17 18:23 Urine pH 5.0 (5.0 - 8.0) 02/10/17 18:23 Ur Specific [place] 1.025 (1.000-1.030) 02/10/17 18:23 Urine Protein 1+ (NEGATIVE) 02/10/17 18:23 Urine Glucose (UA) Negative (NEGATIVE) 02/10/17 18:23 Urine Ketones Negative (NEGATIVE) 02/10/17 18:23 Urine Occult Blood 1+ (NEGATIVE) 02/10/17 18:23 Urine Nitrite Negative (NEGATIVE) 02/10/17 18:23 Urine Bilirubin Negative (NEGATIVE) 02/10/17 18:23 Urine Urobilinogen Normal (NORMAL) 02/10/17 18:23 Ur Leukocyte Esterase Negative (NEGATIVE) 02/10/17 18:23 Urine RBC Rare /HPF (NEGATIVE) 02/10/17 18:23 Urine WBC Rare /HPF (NEGATIVE) 02/10/17 18:23 Ur Squamous Epith Cells Rare /HPF (NEGATIVE) 02/10/17 18:23 Urine Bacteria Negative /HPF (NEGATIVE) 02/10/17 18:23 Ur Culture Indicated? No/not indicated 02/10/17 18:23 - Plan (1) Poor appetite Status: Acute Plan: CONTINUE PROCALAMINE, ALBUMIN, MONITOR. (2) Dizziness Status: Acute Plan: CONTINUE TO MONITOR. (3) Generalized weakness Status: Acute Plan: CONTINUE PHYSICAL THERAPY, PROCALAMINE, MONITOR. (4) Sinusitis Status: Acute Qualifiers: Sinusitis location: maxillary Chronicity: acute Recurrence: non- recurrent Qualified Code(s): J01.00 - Acute maxillary sinusitis, unspecified Plan: CONTINUE ZOSYN, MONITOR. (5) Constipation by delayed colonic transit Status: Acute (6) Dehydration Status: Acute Plan: CONTINUE IV FLUIDS, MONITOR LABS. (7) Chest pain Status: Acute Qualifiers: Chest pain type: chest pain on breathing Ischemic chest pain type: I Qualified Code(s): R07.1 - Chest pain on breathing Plan: CONTINUE TORADOL, CONTINUE MONITOR ON TELEMETRY, MONITOR. (8) Hypoalbuminemia Status: Acute Plan: CONTINUE ALBUMIN, MONITOR. (9) Pulmonary contusion Status: Acute Qualifiers: Encounter type: initial encounter Laterality: right Qualified Code(s): S27.321A - Contusion of lung, unilateral, initial encounter Plan: CONTINUE TO MONITOR. (10) Right rib fracture Status: Acute Qualifiers: Encounter type: initial encounter Rib fracture type: multiple ribs Fracture type: closed Fracture healing: F Qualified Code(s): S22.41XA - Multiple fractures of ribs, right side, initial encounter for closed fracture Plan: PAIN MANAGMENT, MONITOR. (11) Back pain Status: Chronic Qualifiers: Back pain location: low back pain Chronicity: chronic Back pain laterality: bilateral Sciatica presence: without sciatica Sciatica laterality: S Qualified Code(s): M54.5 - Low back pain; G89.29 - Other chronic pain (12) Dementia Status: Chronic Qualifiers: Dementia type: vascular dementia Alzheimer's disease onset: A Dementia behavioral disturbance: without behavioral disturbance Qualified Code(s): F01.50 - Vascular dementia without behavioral disturbance (13) Arthritis Status: Chronic
[2017-02-13] MEDS: ARICEPT TAB 10 MG PO SCH (20:38)
[2017-02-13] MEDS: FLOMAX PO SCH (20:39)
[2017-02-13] MEDS: SINGULAIR TAB 10 MG PO SCH (20:40)
[2017-02-13] MEDS: ZOCOR TAB 40 MG PO SCH (20:40)
[2017-02-13] MEDS: MIRALAX POWDER (1 DOSE 17GM) PO SCH (20:40)
[2017-02-13] MEDS: TYLENOL 325 MG TAB PO PRN (20:40)
[2017-02-13] MEDS: SNACK - Diabetic Appropriate PO SCH (20:41)
[2017-02-14] MEDS: CLINIMIX 4.25 %/10 % 1,000 ML with MVI INJ (ADULT) 10 ML, TRACE ELEMENTS INJ 10 ML, TPN... IV SCH ×24 (04:34→23:30)
[2017-02-14] MEDS: ZOSYN VIAL 3.375 GM 3.375 GM in NS 100 ML IV + SPIKE MINIBAG* 100 ML IV SCH ×3 (05:40→21:00)
[2017-02-14 06:12] LABS: BASOPHILS % (AUTO) 0.7 % (0.2-1.0); EOSINOPHILS # (AUTO) 0.2 x10^3/uL (0.0-0.2); EOSINOPHILS % (AUTO) 3.2 % (0.9-2.9); HEMATOCRIT 31.8 % (42.0-54.0); HEMOGLOBIN 10.6 g/dL (13.5-18.0); LYMPHOCYTES # (AUTO) 0.8 X10^3/uL (1.3-2.9); LYMPHOCYTES % (AUTO) 11.4 % (21.0-51.0); MEAN CORPUSCULAR HEMOGLOBIN 29.7 pg (27.0-34.0); MEAN CORPUSCULAR HGB CONC 33.2 g/dL (33.0-35.0); MEAN CORPUSCULAR VOLUME 89.4 fL (80.0-100.0); MEAN PLATELET VOLUME 7.7 fL (7.4-11.0); MONOCYTES # (AUTO) 0.5 x10^3/uL (0.3-0.8); MONOCYTES % (AUTO) 6.7 % (0.0-13.0); NEUTROPHILS # (AUTO) 5.5 x10^3/uL (2.2-4.8); PLATELET COUNT 212 X10^3/uL (150.0-450.0); RED BLOOD COUNT 3.56 X10^6/uL (4.7-6.0); RED CELL DISTRIBUTION WIDTH 15.5 % (11.6-16.5)
[2017-02-14 06:41] LABS: ALBUMIN 2.6 g/dL (3.4-5.0); CALCIUM 8.1 mg/dL (8.5-10.1); CARBON DIOXIDE 20.1 mmol/L (21-32); COR CA(FOR HYPOALB) 9.2 mg/dL (8.5-10.1); CREATININE 1.54 mg/dL (0.70-1.30); TOTAL PROTEIN 5.8 g/dL (6.4-8.2)
--- NOTE | 2017-02-14 08:36 | RAD ---
HISTORY: Dehydration, cough, congestion Study: Single view chest Comparison: 02/13/2017 Findings: Single portable view. Lung volumes are slightly reduced with persistent stable patchy alveolar opaci ties bilaterally. No effusion or pneumothorax. Stable mildly enlarged cardiac silhouette. The soft tissues are unremarkable. IMPRESSION: 1. Stable patchy bilateral alveolar opacities. No new abnormality or significant interval change fro m prior. Reported By:
[2017-02-14] MEDS: XOPENEX 1.25 MG/3 ML NEB SCH ×4 (09:15→21:06)
[2017-02-14] MEDS ORDERED: ALLEGRA ONE (09:18)
[2017-02-14] MEDS: ALBUMIN HUMAN 25%- 100ML 100 ML IV SCH (09:26)
[2017-02-14] MEDS: PROTONIX INJ 40 MG VIAL IVP SCH (09:26)
[2017-02-14] MEDS: NAMENDA TAB 10 MG PO SCH (09:27)
[2017-02-14] MEDS: FLONASE NASAL SPRAY ENOSTRIL SCH (09:27)
[2017-02-14] MEDS: NYSTATIN POWDER TOP SCH ×2 (09:27→20:48)
[2017-02-14] MEDS: COLACE CAP 100 MG PO SCH ×2 (09:27→20:47)
[2017-02-14] MEDS: ALLEGRA PO SCH (09:27)
[2017-02-14] MEDS: TEKTURNA PO SCH (09:27)
[2017-02-14] MEDS: ASPIRIN EC 81 MG PO SCH (09:27)
[2017-02-14] MEDS: NS 500 ML IV 500 ML IV SCH (10:11)
[2017-02-14] MEDS: LEVAQUIN PREMIX IV 750 MG 750 MG/150 ML BAG IV SCH (10:11)
[2017-02-14] MEDS: ROBITUSSIN DM PO SCH ×3 (13:30→20:48)
[2017-02-14] MEDS: ZOFRAN INJ 4 MG VIAL IVP PRN (15:04)
[2017-02-14] MEDS: ARICEPT TAB 10 MG PO SCH (20:47)
[2017-02-14] MEDS: SINGULAIR TAB 10 MG PO SCH (20:47)
[2017-02-14] MEDS: FLOMAX PO SCH (20:47)
[2017-02-14] MEDS: ZOCOR TAB 40 MG PO SCH (20:48)
[2017-02-14] MEDS: MIRALAX POWDER (1 DOSE 17GM) PO SCH (20:48)
[2017-02-14] MEDS: TUSSIONEX PENNKINETIC SUSP PO PRN (20:48)
[2017-02-14] MEDS: SNACK - Diabetic Appropriate PO SCH (20:48)
[2017-02-15] MEDS: TYLENOL 325 MG TAB PO PRN (05:11)
[2017-02-15] MEDS: ZOSYN VIAL 3.375 GM 3.375 GM in NS 100 ML IV + SPIKE MINIBAG* 100 ML IV SCH ×3 (05:12→22:34)
[2017-02-15 06:08] LABS: BASOPHILS % (AUTO) 0.5 % (0.2-1.0); EOSINOPHILS # (AUTO) 0.2 x10^3/uL (0.0-0.2); EOSINOPHILS % (AUTO) 2.4 % (0.9-2.9); HEMATOCRIT 31.9 % (42.0-54.0); HEMOGLOBIN 10.7 g/dL (13.5-18.0); LYMPHOCYTES # (AUTO) 0.7 X10^3/uL (1.3-2.9); LYMPHOCYTES % (AUTO) 9.6 % (21.0-51.0); MEAN CORPUSCULAR HGB CONC 33.6 g/dL (33.0-35.0); MEAN CORPUSCULAR VOLUME 89.2 fL (80.0-100.0); MEAN PLATELET VOLUME 7.8 fL (7.4-11.0); MONOCYTES # (AUTO) 0.4 x10^3/uL (0.3-0.8); MONOCYTES % (AUTO) 5.9 % (0.0-13.0); NEUTROPHILS # (AUTO) 5.9 x10^3/uL (2.2-4.8); NEUTROPHILS % (AUTO) 81.6 % (42.0-75.0); PLATELET COUNT 257 X10^3/uL (150.0-450.0); RED BLOOD COUNT 3.58 X10^6/uL (4.7-6.0); RED CELL DISTRIBUTION WIDTH 15.5 % (11.6-16.5); WHITE BLOOD COUNT 7.2 X10^3/uL (3.6-10.0)
[2017-02-15] MEDS: CLINIMIX 4.25 %/10 % 1,000 ML with MVI INJ (ADULT) 10 ML, TRACE ELEMENTS INJ 10 ML, TPN... IV SCH ×18 (06:32→22:37)
[2017-02-15 07:38] LABS: CALCIUM 8.5 mg/dL (8.5-10.1); CARBON DIOXIDE 20.6 mmol/L (21-32); COR CA(FOR HYPOALB) 9.3 mg/dL (8.5-10.1); CREATININE 1.55 mg/dL (0.70-1.30); TOTAL PROTEIN 6.4 g/dL (6.4-8.2)
[2017-02-15] MEDS ORDERED: ALLEGRA ONE (07:47)
--- NOTE | 2017-02-15 08:01 | RAD ---
Chest, one view Indication: Cough. Comparison: 02/14/2017 Findings: The cardiac silhouette is unchanged. Bilateral perihilar infiltrates demonstrate mild impr ovement. No new consolidation, large effusion, or pneumothorax identified. Impression: Improving bilateral perihilar infiltrates. Reported By:
[2017-02-15] MEDS ORDERED: EFFEXOR XR 37.5 MG CAP PO ONE (08:49)
[2017-02-15] MEDS: ALBUMIN HUMAN 25%- 100ML 100 ML IV SCH (08:52)
[2017-02-15] MEDS: PROTONIX INJ 40 MG VIAL IVP SCH (08:53)
[2017-02-15] MEDS: LEVAQUIN PREMIX IV 750 MG 750 MG/150 ML BAG IV SCH (08:53)
[2017-02-15] MEDS: MEGACE PO SCH ×2 (08:54→22:35)
[2017-02-15] MEDS: COLACE CAP 100 MG PO SCH ×2 (08:54→22:35)
[2017-02-15] MEDS: ASPIRIN EC 81 MG PO SCH (08:54)
[2017-02-15] MEDS: TEKTURNA PO SCH (08:54)
[2017-02-15] MEDS: NAMENDA TAB 10 MG PO SCH (08:54)
[2017-02-15] MEDS: ROBITUSSIN DM PO SCH ×4 (08:55→22:36)
[2017-02-15] MEDS: NYSTATIN POWDER TOP SCH ×2 (08:55→22:38)
[2017-02-15] MEDS: ALLEGRA PO SCH (08:55)
[2017-02-15] MEDS: FLONASE NASAL SPRAY ENOSTRIL SCH (08:55)
[2017-02-15] MEDS: XOPENEX 1.25 MG/3 ML NEB SCH ×4 (08:56→20:17)
[2017-02-15] MEDS ORDERED: LEVAQUIN PREMIX IV 750 MG 750 MG/150 ML BAG IV SCH (09:00)
[2017-02-15] MEDS: EFFEXOR TAB 37.5 MG (BID DOSING) PO SCH ×2 (09:29→22:36)
--- NOTE | 2017-02-15 11:12 | PCM.PROG ---
Progress Note - Progress Note for Day of Date: 02/14/17 - Subjective Subjective: PATIENT RESTS IN BED, AT BEDSIDE. TEMPERATURE WAS NOTED AT 102.9F THROUGH THE NIGHT. ON AUSCULTATION, LUNGS CONTINUE WITH RHONCHI TO UPPER LOBES. IT SEEMS PATIENT MAY HAVE A DEVOLOPING BRONCHITIS DUE TO INEFFECTIVE DEEP BREATHING IN RELATION TO RIB FRACTURE. PATIENT CONTINUES WITH SOMNOLENCE. PATIENT CONTINUES WITH VERY POOR APPETITE, EATING NOTHING FOR BREAKFAST OR LUNCH YESTERDAY AND APPROXIMATELY 50% OF SUPPER. HE IS NOTED WITH INTERMITTENT CONFUSION. HEART RATE IS 115 THIS MORNING. DIZZINESS CONTINUES AT TIMES. HE CONTINUES WITH UNSTEADY GAIT. PHYSICAL THERAPY CONTINUES. CBC WNL EXCEPT: H/H 10.6/31.8. CMP WNL EXCEPT: BUN/CREAT 30/1.54, GFR 46, GLUCOSE 117, CALCIUM 8.1, TOT PROTEIN 5.8, ALBUMIN 2.6. CHEST XRAY REPORTS STABLE PATCHY BILATERAL ALVEOLAR OPACITIES; NO NEW ABNORMALITY. WE WILL OBTAIN BLOOD CULTURES, START PNEUMONIA PROTOCOL, AND CONTINUE NEB TREATMENTS. WE WILL CONTINUE TO MONITOR AND FOLLOW UP IN AM WITH LABS AND CHEST XRAY. - Past Medical Family Social History Past Med/Fam/Surg Hx: No changes since H&P Allergies: Allergies Codeine Allergy (Verified 02/10/17 16:02) - Review of Systems ROS: No change since H&P - Vital Signs and I&O's Vital Signs: Temperature 100.5 F Pulse Rate [Left Brachial] 114 Pulse Rate 104 Respiratory Rate 21 Blood Pressure [Right Arm] 108/65 Blood Pressure [Left Arm] 101/60 O2 Sat by Pulse Oximetry 100 Intake and Output: Intake & Output 02/12/17 02/13/17 02/14/17 02/15/17 11:59 11:59 11:59 11:59 Intake Total 3393 3707 3392 3977 Output Total 4286 192 1232 1650 Balance 2143 2982 2042 2327 - Physical Exam Oriented: Normal, Time, Person, Place Eyes: Normal. negative: Blurred Vision, Diplopia, Discharge, Pain, Redness, Photophobia Ear: Normal. negative: Swelling, Ecchymosis, Hemotypanum, Abrasion, Laceration Nose: Normal. negative: Injected, Discharge, Blood Throat: Normal. negative: Tonsillar Hypertrophy, Red, Exudate Respiratory: Generalized, Rhonchi Cardiovascular: Normal. negative: Murmur, Edema : Normal. negative: Dysuria, Hematuria, Frequency, Discharge, Testicular Pain Auscultation: Bowel Sounds: Decreased. negative: Bruit Palpation: Normal. negative: Spleen Enlarged, Liver Enlarged, Mass Pulsatile Tenderness: Diffuse, Mild. negative: Rebound, Guarding, Rigidity Skin: Decreased Turgur. negative: Diaphoresis, Wound, Bruising, Ecchymosis Musculoskeletal: Tender (Tenderness to Right Chest Wall), Instability Psychiatric: Other (Confusion) Mood Description: Calm, Appropriate Affect: Normal Speech Pattern: Clear - Laboratory and Diagnostics Result Diagrams: 02/15/17 05:15 02/15/17 05:15 Labs: Laboratory WBC 7.2 X10^3/uL (3.6-10.0) 02/15/17 05:15 RBC 3.58 X10^6/uL (4.7-6.0) L 02/15/17 05:15 Hgb 10.7 g/dL (13.5-18.0) L 02/15/17 05:15 Hct 31.9 % (42.0-54.0) L 02/15/17 05:15 MCV 89.2 fL (80.0-100.0) 02/15/17 05:15 MCH 30.0 pg (27.0-34.0) 02/15/17 05:15 MCHC 33.6 g/dL (33.0-35.0) 02/15/17 05:15 RDW 15.5 % (11.6-16.5) 02/15/17 05:15 Plt Count 257 X10^3/uL (150.0-450.0) 02/15/17 05:15 Plt Count Comment Adequate (ADEQUATE) 02/11/17 05:40 MPV 7.8 fL (7.4-11.0) 02/15/17 05:15 Neut % 81.6 % (42.0-75.0) H 02/15/17 05:15 Lymph % 9.6 % (21.0-51.0) L 02/15/17 05:15 [place] % 5.9 % (0.0-13.0) 02/15/17 05:15 Eos % 2.4 % (0.9-2.9) 02/15/17 05:15 Baso % 0.5 % (0.2-1.0) 02/15/17 05:15 Neut # 5.9 x10^3/uL (2.2-4.8) H 02/15/17 05:15 Lymph # 0.7 X10^3/uL (1.3-2.9) L 02/15/17 05:15 [place] # 0.4 x10^3/uL (0.3-0.8) 02/15/17 05:15 Eos # 0.2 x10^3/uL (0.0-0.2) 02/15/17 05:15 Baso # 0.0 X10^3/uL (0.0-0.1) 02/15/17 05:15 Absolute Nucleated RBC 0.0 /100WBC 02/15/17 05:15 Total Counted 100 02/11/17 05:40 Neutrophils % (Manual) 86 % (39-76) H 02/11/17 05:40 Lymphocytes % (Manual) 10 % (13-43) L 02/11/17 05:40 Monocytes % (Manual) 2 % (4-9) L 02/11/17 05:40 Eosinophils % (Manual) 2 % (0-6) 02/11/17 05:40 Plt Morphology Comment Normal (NORMAL) 02/11/17 05:40 RBC Morphology Normal (NORMAL) 02/11/17 05:40 Sodium 139 mmol/L (136-145) 02/15/17 05:15 Corrected Sodium 140 mmol/L (136-145) 02/15/17 05:15 Potassium 4.8 mmol/L (3.5-5.1) 02/15/17 05:15 Chloride 107 mmol/L (98-107) 02/15/17 05:15 Carbon Dioxide 20.6 mmol/L (21-32) L 02/15/17 05:15 BUN 31 mg/dL (7-18) H 02/15/17 05:15 Creatinine 1.55 mg/dL (0.70-1.30) H 02/15/17 05:15 Est GFR (MDRD) Af Amer 55 (>60) L 02/15/17 05:15 Est GFR (MDRD) Non-Af 46 (>60) L 02/15/17 05:15 Glucose 122 mg/dL (65-99) H 02/15/17 05:15 Calcium 8.5 mg/dL (8.5-10.1) 02/15/17 05:15 Corrected Calcium 9.3 mg/dL (8.5-10.1) 02/15/17 05:15 Total Bilirubin 0.50 mg/dL (0.2-1.0) 02/15/17 05:15 AST 27 Units/L (15-37) 02/15/17 05:15 ALT 43 Units/L (12-78) 02/15/17 05:15 Alkaline Phosphatase 83 Units/L (46-116) 02/15/17 05:15 Creatine Kinase 38 Units/L (39-308) L 02/11/17 05:40 CK-MB (CK-2) 1.0 ng/mL (0-4.0) 02/11/17 05:40 CK/CKMB % Calc 2.6 % (<4) 02/11/17 05:40 Troponin I < 0.02 ng/mL (0-1.5) 02/11/17 05:40 B-Natriuretic Peptide 20.7 pg/mL (0-79) 02/10/17 17:10 Total Protein 6.4 g/dL (6.4-8.2) 02/15/17 05:15 Albumin 3.0 g/dL (3.4-5.0) L 02/15/17 05:15 Globulin 3.4 g/dL (2.5-4.5) 02/15/17 05:15 Albumin/Globulin Ratio 0.9 Ratio (1.1-2.1) L 02/15/17 05:15 Specimen Type Clean catch urine 02/10/17 18:23 Urine Color Yellow (YELLOW) 02/10/17 18:23 Urine Appearance Hazy (CLEAR) 02/10/17 18:23 Urine pH 5.0 (5.0 - 8.0) 02/10/17 18: Ur Specific [place] 1.025 (1.000-1.030) 02/10/17 18:23 Urine Protein 1+ (NEGATIVE) 02/10/17 18:23 Urine Glucose (UA) Negative (NEGATIVE) 02/10/17 18:23 Urine Ketones Negative (NEGATIVE) 02/10/17 18:23 Urine Occult Blood 1+ (NEGATIVE) 02/10/17 18:23 Urine Nitrite Negative (NEGATIVE) 02/10/17 18:23 Urine Bilirubin Negative (NEGATIVE) 02/10/17 18:23 Urine Urobilinogen Normal (NORMAL) 02/10/17 18:23 Ur Leukocyte Esterase Negative (NEGATIVE) 02/10/17 18:23 Urine RBC Rare /HPF (NEGATIVE) 02/10/17 18:23 Urine WBC Rare /HPF (NEGATIVE) 02/10/17 18:23 Ur Squamous Epith Cells Rare /HPF (NEGATIVE) 02/10/17 18:23 Urine Bacteria Negative /HPF (NEGATIVE) 02/10/17 18:23 Ur Culture Indicated? No/not indicated 02/10/17 18:23 Influenza A (H1N1) PCR Not detected (NOT DETECT) 02/14/17 08:54 Influenza Type A (PCR) Negative (NEGATIVE) 02/14/17 08:54 Influenza Type B (PCR) Negative (NEGATIVE) 02/14/17 08:54 - Plan (1) Poor appetite Status: Acute Plan: CONTINUE PROCALAMINE, ALBUMIN, MONITOR INTAKE. (2) Bronchitis Status: Acute Plan: OBTAIN BLOOD CULTURES, START LEVAQUIN, CONTINUE ZOSYN, NEB TREATMENTS, START ROBITUSSIN, MONITOR LABS AND CHEST XRAY. (3) Dizziness Status: Acute Plan: CONTINUE TO MONITOR. (4) Generalized weakness Status: Acute Plan: CONTINUE PHYSICAL THERAPY, PROCALAMINE, MONITOR. (5) Sinusitis Status: Acute Qualifiers: Sinusitis location: maxillary Chronicity: acute Recurrence: non- recurrent Qualified Code(s): J01.00 - Acute maxillary sinusitis, unspecified Plan: CONTINUE ZOSYN, MONITOR. (6) Constipation by delayed colonic transit Status: Acute Plan: CONTINUE MILK OF MAGNESIA, MIRALAX, COLACE, MONITOR. (7) Dehydration Status: Acute Plan: CONTINUE IV FLUIDS, MONITOR LABS. (8) Hypoalbuminemia Status: Acute Plan: CONTINUE ALBUMIN, MONITOR. (9) Pulmonary contusion Status: Acute Qualifiers: Encounter type: initial encounter Laterality: right Qualified Code(s): S27.321A - Contusion of lung, unilateral, initial encounter Plan: CONTINUE TO MONITOR. (10) Chest pain Status: Resolved Qualifiers: Chest pain type: chest pain on breathing Ischemic chest pain type: I Qualified Code(s): R07.1 - Chest pain on breathing Plan: CONTINUE TORADOL, CONTINUE MONITOR ON TELEMETRY, MONITOR. (11) Right rib fracture Status: Acute Qualifiers: Encounter type: initial encounter Rib fracture type: multiple ribs Fracture type: closed Fracture healing: F Qualified Code(s): S22.41XA - Multiple fractures of ribs, right side, initial encounter for closed fracture Plan: PAIN MANAGMENT, MONITOR. (12) Back pain Status: Chronic Qualifiers: Back pain location: low back pain Chronicity: chronic Back pain laterality: bilateral Sciatica presence: without sciatica Sciatica laterality: S Qualified Code(s): M54.5 - Low back pain; G89.29 - Other chronic pain (13) Arthritis Status: Chronic (14) Dementia Status: Chronic Qualifiers: Dementia type: vascular dementia Alzheimer's disease onset: A Dementia behavioral disturbance: without behavioral disturbance Qualified Code(s): F01.50 - Vascular dementia without behavioral disturbance
--- NOTE | 2017-02-15 11:59 | PCM.PROG ---
Progress Note - Progress Note for Day of Date: 02/15/17 - Subjective Subjective: PATIENT RESTS IN BED, AT BEDSIDE. TEMPERATURE IS 100.5F THIS MORNING AND HAS RECEIVED TYLENOL THIS MORNING. AND DAUGHTER AT BEDSIDE AND REPORTS PATIENT HAS BEEN DEPRESSED. ON AUSCULTATION, LUNGS CONTINUE WITH RHONCHI TO UPPER LOBES. PATIENT CONTINUES WITH BRONCHITIS. PATIENT IS DROWSY THIS MORNING AND AWAKENS WITH VERBAL AND TACTILE STIMULI. PATIENT CONTINUES WITH VERY POOR APPETITE. REPORTS POOR ORAL INTAKE HAS BEEN ON-GOING FOR GREATER THAN SIX MONTHS. HE CONTINUES WITH INTERMITTENT CONFUSION. HE CONTINUES WITH UNSTEADY GAIT AND GENERALIZED WEAKNESS. PHYSICAL THERAPY CONTINUES. WE SPEAK WITH AND DAUGHTER ABOUT POSSIBLE SWINGBED FOR FURTHER NUTRITION AND PHYSICAL THERAPY. BOTH ARE IN AGREEMENT. CBC WNL EXCEPT: H/H 10.7/31.9. CMP WNL EXCEPT: BUN/CREAT 31/1.55, GFR 46, GLUCOSE 122, ALBUMIN 3.0. CHEST XRAY REPORTS IMPROVING BILATERAL PERHILAR INFILTRATES. WE WILL START MEGACE, ENSURE, AND EFFEXOR. WE WILL CONTINUE IV LEVAQUIN, IV ZOSYN, NEB TREATMENTS, PERIPHERAL TPN, AND ALBUMIN. WE WILL CONTINUE TO MONITOR AND FOLLOW UP IN AM WITH LABS AND CHEST XRAY. - Past Medical Family Social History Past Med/Fam/Surg Hx: No changes since H&P Allergies: Allergies Codeine Allergy (Verified 02/10/17 16:02) - Review of Systems ROS: No change since H&P - Vital Signs and I&O's Vital Signs: Temperature 100.5 F Pulse Rate [Left Brachial] 114 Pulse Rate 104 Respiratory Rate 21 Blood Pressure [Right Arm] 108/65 Blood Pressure [Left Arm] 101/60 O2 Sat by Pulse Oximetry 100 Intake and Output: Intake & Output 02/12/17 02/13/17 02/14/17 02/15/17 11:59 11:59 11:59 11:59 Intake Total 3393 3707 3392 3977 Output Total 9521 512 0166 1650 Balance 2143 2982 2042 2327 - Physical Exam Oriented: Normal, Time, Person, Place Eyes: Normal. negative: Blurred Vision, Diplopia, Discharge, Pain, Redness, Photophobia Ear: Normal. negative: Swelling, Ecchymosis, Hemotypanum, Abrasion, Laceration Nose: Normal. negative: Injected, Discharge, Blood Throat: Normal. negative: Tonsillar Hypertrophy, Red, Exudate Respiratory: Generalized, Rhonchi Cardiovascular: Normal. negative: Murmur, Edema : Normal. negative: Dysuria, Hematuria, Frequency, Discharge, Testicular Pain Auscultation: Bowel Sounds: Decreased. negative: Bruit Palpation: Normal. negative: Spleen Enlarged, Liver Enlarged, Mass Pulsatile Tenderness: Diffuse, Mild. negative: Rebound, Guarding, Rigidity Skin: Decreased Turgur. negative: Diaphoresis, Wound, Bruising, Ecchymosis Musculoskeletal: Tender (Tenderness to Right Chest Wall), Instability Psychiatric: Other (Confusion) Mood Description: Calm, Appropriate Affect: Normal Speech Pattern: Clear - Laboratory and Diagnostics Result Diagrams: 02/15/17 05:15 02/15/17 05:15 Labs: Laboratory WBC 7.2 X10^3/uL (3.6-10.0) 02/15/17 05:15 RBC 3.58 X10^6/uL (4.7-6.0) L 02/15/17 05:15 Hgb 10.7 g/dL (13.5-18.0) L 02/15/17 05:15 Hct 31.9 % (42.0-54.0) L 02/15/17 05:15 MCV 89.2 fL (80.0-100.0) 02/15/17 05:15 MCH 30.0 pg (27.0-34.0) 02/15/17 05:15 MCHC 33.6 g/dL (33.0-35.0) 02/15/17 05:15 RDW 15.5 % (11.6-16.5) 02/15/17 05:15 Plt Count 257 X10^3/uL (150.0-450.0) 02/15/17 05:15 Plt Count Comment Adequate (ADEQUATE) 02/11/17 05:40 MPV 7.8 fL (7.4-11.0) 02/15/17 05:15 Neut % 81.6 % (42.0-75.0) H 02/15/17 05:15 Lymph % 9.6 % (21.0-51.0) L 02/15/17 05:15 [place] % 5.9 % (0.0-13.0) 02/15/17 05:15 Eos % 2.4 % (0.9-2.9) 02/15/17 05:15 Baso % 0.5 % (0.2-1.0) 02/15/17 05:15 Neut # 5.9 x10^3/uL (2.2-4.8) H 02/15/17 05:15 Lymph # 0.7 X10^3/uL (1.3-2.9) L 02/15/17 05:15 [place] # 0.4 x10^3/uL (0.3-0.8) 02/15/17 05:15 Eos # 0.2 x10^3/uL (0.0-0.2) 02/15/17 05:15 Baso # 0.0 X10^3/uL (0.0-0.1) 02/15/17 05:15 Absolute Nucleated RBC 0.0 /100WBC 02/15/17 05:15 Total Counted 100 02/11/17 05:40 Neutrophils % (Manual) 86 % (39-76) H 02/11/17 05:40 Lymphocytes % (Manual) 10 % (13-43) L 02/11/17 05:40 Monocytes % (Manual) 2 % (4-9) L 02/11/17 05:40 Eosinophils % (Manual) 2 % (0-6) 02/11/17 05:40 Plt Morphology Comment Normal (NORMAL) 02/11/17 05:40 RBC Morphology Normal (NORMAL) 02/11/17 05:40 Sodium 139 mmol/L (136-145) 02/15/17 05:15 Corrected Sodium 140 mmol/L (136-145) 02/15/17 05:15 Potassium 4.8 mmol/L (3.5-5.1) 02/15/17 05:15 Chloride 107 mmol/L (98-107) 02/15/17 05:15 Carbon Dioxide 20.6 mmol/L (21-32) L 02/15/17 05:15 BUN 31 mg/dL (7-18) H 02/15/17 05:15 Creatinine 1.55 mg/dL (0.70-1.30) H 02/15/17 05:15 Est GFR (MDRD) Af Amer 55 (>60) L 02/15/17 05:15 Est GFR (MDRD) Non-Af 46 (>60) L 02/15/17 05:15 Glucose 122 mg/dL (65-99) H 02/15/17 05:15 Calcium 8.5 mg/dL (8.5-10.1) 02/15/17 05:15 Corrected Calcium 9.3 mg/dL (8.5-10.1) 02/15/17 05:15 Total Bilirubin 0.50 mg/dL (0.2-1.0) 02/15/17 05:15 AST 27 Units/L (15-37) 02/15/17 05:15 ALT 43 Units/L (12-78) 02/15/17 05:15 Alkaline Phosphatase 83 Units/L (46-116) 02/15/17 05:15 Creatine Kinase 38 Units/L (39-308) L 02/11/17 05:40 CK-MB (CK-2) 1.0 ng/mL (0-4.0) 02/11/17 05:40 CK/CKMB % Calc 2.6 % (<4) 02/11/17 05:40 Troponin I < 0.02 ng/mL (0-1.5) 02/11/17 05:40 B-Natriuretic Peptide 20.7 pg/mL (0-79) 02/10/17 17:10 Total Protein 6.4 g/dL (6.4-8.2) 02/15/17 05:15 Albumin 3.0 g/dL (3.4-5.0) L 02/15/17 05:15 Globulin 3.4 g/dL (2.5-4.5) 02/15/17 05:15 Albumin/Globulin Ratio 0.9 Ratio (1.1-2.1) L 02/15/17 05:15 Specimen Type Clean catch urine 02/10/17 18:23 Urine Color Yellow (YELLOW) 02/10/17 18: Urine Appearance Hazy (CLEAR) 02/10/17 18: Urine pH 5.0 (5.0 - 8.0) 02/10/17 18: Ur Specific [place] 1.025 (1.000-1.030) 02/10/17 18:23 Urine Protein 1+ (NEGATIVE) 02/10/17 18:23 Urine Glucose (UA) Negative (NEGATIVE) 02/10/17 18:23 Urine Ketones Negative (NEGATIVE) 02/10/17 18:23 Urine Occult Blood 1+ (NEGATIVE) 02/10/17 18:23 Urine Nitrite Negative (NEGATIVE) 02/10/17 18:23 Urine Bilirubin Negative (NEGATIVE) 02/10/17 18:23 Urine Urobilinogen Normal (NORMAL) 02/10/17 18:23 Ur Leukocyte Esterase Negative (NEGATIVE) 02/10/17 18:23 Urine RBC Rare /HPF (NEGATIVE) 02/10/17 18:23 Urine WBC Rare /HPF (NEGATIVE) 02/10/17 18:23 Ur Squamous Epith Cells Rare /HPF (NEGATIVE) 02/10/17 18:23 Urine Bacteria Negative /HPF (NEGATIVE) 02/10/17 18:23 Ur Culture Indicated? No/not indicated 02/10/17 18:23 Influenza A (H1N1) PCR Not detected (NOT DETECT) 02/14/17 08:54 Influenza Type A (PCR) Negative (NEGATIVE) 02/14/17 08:54 Influenza Type B (PCR) Negative (NEGATIVE) 02/14/17 08:54 - Plan (1) Poor appetite Status: Acute Plan: CONTINUE PERIPHERAL TPN, ALBUMIN, MONITOR INTAKE. (2) Bronchitis Status: Acute Plan: CONTINUE LEVAQUIN, ZOSYN, NEB TREATMENTS, ROBITUSSIN, MONITOR LABS AND CHEST XRAY. (3) Dizziness Status: Acute Plan: CONTINUE TO MONITOR. (4) Generalized weakness Status: Acute Plan: CONTINUE PHYSICAL THERAPY, PERIPHERAL TPN, MONITOR. (5) Sinusitis Status: Acute Qualifiers: Sinusitis location: maxillary Chronicity: acute Recurrence: non- recurrent Qualified Code(s): J01.00 - Acute maxillary sinusitis, unspecified Plan: CONTINUE LEVAQUIN, ZOSYN, MONITOR. (6) Constipation by delayed colonic transit Status: Acute Plan: CONTINUE MILK OF MAGNESIA, MIRALAX, COLACE, MONITOR. (7) Hypoalbuminemia Status: Acute Plan: CONTINUE ALBUMIN, MONITOR. (8) Dehydration Status: Acute Plan: CONTINUE IV FLUIDS, MONITOR LABS. (9) Pulmonary contusion Status: Acute Qualifiers: Encounter type: initial encounter Laterality: right Qualified Code(s): S27.321A - Contusion of lung, unilateral, initial encounter Plan: CONTINUE TO MONITOR. (10) Chest pain Status: Resolved Qualifiers: Chest pain type: chest pain on breathing Ischemic chest pain type: I Qualified Code(s): R07.1 - Chest pain on breathing Plan: CONTINUE MONITOR ON TELEMETRY, MONITOR. (11) Dementia Status: Chronic Qualifiers: Dementia type: vascular dementia Alzheimer's disease onset: A Dementia behavioral disturbance: without behavioral disturbance Qualified Code(s): F01.50 - Vascular dementia without behavioral disturbance (12) Right rib fracture Status: Acute Qualifiers: Encounter type: initial encounter Rib fracture type: multiple ribs Fracture type: closed Fracture healing: F Qualified Code(s): S22.41XA - Multiple fractures of ribs, right side, initial encounter for closed fracture Plan: PAIN MANAGMENT, MONITOR. (13) Back pain Status: Chronic Qualifiers: Back pain location: low back pain Chronicity: chronic Back pain laterality: bilateral Sciatica presence: without sciatica Sciatica laterality: S Qualified Code(s): M54.5 - Low back pain; G89.29 - Other chronic pain (14) Arthritis Status: Chronic
[2017-02-15] MEDS: ZOCOR TAB 40 MG PO SCH (22:35)
[2017-02-15] MEDS: FLOMAX PO SCH (22:35)
[2017-02-15] MEDS: SINGULAIR TAB 10 MG PO SCH (22:35)
[2017-02-15] MEDS: NS 500 ML IV 500 ML IV SCH (22:36)
[2017-02-15] MEDS: MIRALAX POWDER (1 DOSE 17GM) PO SCH (22:36)
[2017-02-15] MEDS: TUSSIONEX PENNKINETIC SUSP PO PRN (22:36)
[2017-02-15] MEDS: SNACK - Diabetic Appropriate PO SCH (22:39)
[2017-02-16] MEDS: LOVENOX INJ 30 MG SYR SC SCH ×3 (00:51→21:00)
[2017-02-16] MEDS: TYLENOL 325 MG TAB PO PRN (01:11)
[2017-02-16] MEDS: CLINIMIX 4.25 %/10 % 1,000 ML with MVI INJ (ADULT) 10 ML, TRACE ELEMENTS INJ 10 ML, TPN... IV SCH ×18 (02:18→21:18)
[2017-02-16 03:37] LABS: BASOPHILS % (AUTO) 0.4 % (0.2-1.0); EOSINOPHILS # (AUTO) 0.2 x10^3/uL (0.0-0.2); EOSINOPHILS % (AUTO) 3.3 % (0.9-2.9); HEMATOCRIT 31.4 % (42.0-54.0); HEMOGLOBIN 10.4 g/dL (13.5-18.0); LYMPHOCYTES # (AUTO) 0.6 X10^3/uL (1.3-2.9); LYMPHOCYTES % (AUTO) 7.8 % (21.0-51.0); MEAN CORPUSCULAR HEMOGLOBIN 29.4 pg (27.0-34.0); MEAN CORPUSCULAR HGB CONC 33.1 g/dL (33.0-35.0); MEAN CORPUSCULAR VOLUME 88.8 fL (80.0-100.0); MEAN PLATELET VOLUME 7.9 fL (7.4-11.0); MONOCYTES # (AUTO) 0.6 x10^3/uL (0.3-0.8); MONOCYTES % (AUTO) 8.3 % (0.0-13.0); NEUTROPHILS # (AUTO) 5.9 x10^3/uL (2.2-4.8); NEUTROPHILS % (AUTO) 80.2 % (42.0-75.0); PLATELET COUNT 278 X10^3/uL (150.0-450.0); RED BLOOD COUNT 3.54 X10^6/uL (4.7-6.0); RED CELL DISTRIBUTION WIDTH 15.5 % (11.6-16.5); WHITE BLOOD COUNT 7.3 X10^3/uL (3.6-10.0)
[2017-02-16 03:43] LABS: ALANINE AMINOTRANSFERASE 31 Units/L (12-78); ALBUMIN 3.1 g/dL (3.4-5.0); ALKALINE PHOSPHATASE 76 Units/L (46-116); ASPARTATE AMINO TRANSFERASE 21 Units/L (15-37); BLOOD UREA NITROGEN 32 mg/dL (7-18); CALCIUM 8.8 mg/dL (8.5-10.1); CARBON DIOXIDE 21.2 mmol/L (21-32); CHLORIDE 103 mmol/L (98-107); COR CA(FOR HYPOALB) 9.5 mg/dL (8.5-10.1); CREATININE 1.44 mg/dL (0.70-1.30); GLUCOSE 102 mg/dL (65-99); SODIUM 136 mmol/L (136-145); TOTAL PROTEIN 6.6 g/dL (6.4-8.2); eGFR BLACK RACES 60 (>60); eGFR NON BLACK RACES 50 (>60)
[2017-02-16] MEDS: ZOSYN VIAL 3.375 GM 3.375 GM in NS 100 ML IV + SPIKE MINIBAG* 100 ML IV SCH ×3 (06:00→21:01)
[2017-02-16] MEDS ORDERED: NS 100 ML IV 100 ML IV ONE ×2 (06:39→07:47)
[2017-02-16] MEDS ORDERED: ZOSYN VIAL 3.375 GM IV ONE (06:40)
--- NOTE | 2017-02-16 07:01 | RAD ---
Chest, one view Indication: Cough. Comparison: 02/15/2017 Findings: The heart size is normal. Mild bilateral perihilar infiltrates are not significantly east[place] ed. No new consolidation, large effusion, or pneumothorax identified. Impression: No significant change from prior. No new abnormality. Reported By:
[2017-02-16] MEDS ORDERED: ALLEGRA ONE (08:18)
[2017-02-16] MEDS: XOPENEX 1.25 MG/3 ML NEB SCH ×5 (09:13→22:19)
[2017-02-16] MEDS: MEGACE PO SCH ×2 (09:28→21:00)
[2017-02-16] MEDS: PROTONIX INJ 40 MG VIAL IVP SCH (09:28)
[2017-02-16] MEDS: ALLEGRA PO SCH (09:29)
[2017-02-16] MEDS: ASPIRIN EC 81 MG PO SCH (09:29)
[2017-02-16] MEDS: NAMENDA TAB 10 MG PO SCH (09:29)
[2017-02-16] MEDS: COLACE CAP 100 MG PO SCH ×2 (09:29→21:00)
[2017-02-16] MEDS: ROBITUSSIN DM PO SCH ×4 (09:29→20:59)
[2017-02-16] MEDS: EFFEXOR TAB 37.5 MG (BID DOSING) PO SCH ×2 (09:29→21:00)
[2017-02-16] MEDS: FLONASE NASAL SPRAY ENOSTRIL SCH (09:30)
[2017-02-16] MEDS: NYSTATIN POWDER TOP SCH ×2 (09:30→21:19)
[2017-02-16] MEDS: TEKTURNA PO SCH (09:33)
--- NOTE | 2017-02-16 09:59 | CT ---
HISTORY: Pneumonia, suspected pulmonary embolus Study: CTA chest Comparison: February 10, 2017 Technique: Multiple axial images of the chest were obtained from the thoracic inlet to the upper abd omen during the administration of IV contrast. In addition to standard multi planer reconstructions, MIP reconstructions were performed and reviewed in coronal and sagittal planes. Findings: The mediastinum does not demonstrate significant pathological lymphadenopathy. There is no pericard ial effusion observed. The thoracic aorta is normal in its contour without evidence for aneurysmal dilatation. The central pulmonary arterial system does not demonstrate central filling defects to s uggest pulmonary emboli. Evaluation of the lung parenchyma reveals a significant increase in ground-glass opacities bilateral ly. These are likely inflammatory or infectious. There are bilateral pleural effusions which have de veloped. Some compressive atelectasis is present in the lung bases... No pulmonary nodule or mass c an be identified. The bony thorax is unremarkable in its appearance. The visualized portions of th e upper abdomen are grossly unremarkable. IMPRESSION: No evidence of pulmonary embolus or thoracic aortic aneurysm. Significant interval increase in ground-glass opacities present involving both lungs. Bilateral pleu ral effusions. Some compressive atelectasis is present in the lung bases. Reported By:
[2017-02-16] MEDS: ZOFRAN INJ 4 MG VIAL IVP PRN (10:53)
[2017-02-16] MEDS: ALBUMIN HUMAN 25%- 100ML 100 ML IV SCH (11:34)
[2017-02-16] MEDS: LEVAQUIN PREMIX IV 750 MG 750 MG/150 ML BAG IV SCH (11:35)
--- NOTE | 2017-02-16 15:04 | PCM.PROG ---
Progress Note - Progress Note for Day of Date: 02/16/17 - Subjective Subjective: PATIENT RESTS IN BED, AND SON AT BEDSIDE. PATEINT CONTINUES WITH FEVER. CT OF CHEST WAS OBTAINED THIS MORNING AND REPORTS NO PULMONARY EMBOLUS; SIGNIFICANT INTERVAL INCREASE IN GROUND-GLASS OPACITIES PRESENT INVOLVING BOTH LUNGS; BILATERAL PLEURAL EFFUSIONS; SOME COMPRESSIVE ATELECTASIS PRESENT IN THE LUNG BASES. SON STATES PATIENT ATE NOTHING YESTERDAY. PATIENT REPORTS HE DOESN'T FEEL LIKE EATING AND HAS NAUSEA. ON AUSCULTATION, LUNGS WITH SCATTERED WHEEZING AND RHONCHI THROUGHOUT. SON REPORTS PATIENT HAS HAD WEIGHT LOSS AROUND 40 POUNDS IN THE LAST 6 MONTHS. HE CONTINUES WITH INTERMITTENT CONFUSION. HE CONTINUES WITH UNSTEADY GAIT AND GENERALIZED WEAKNESS. PHYSICAL THERAPY CONTINUES. WE SPEAK WITH AND DAUGHTER ABOUT POSSIBLE SWINGBED FOR FURTHER NUTRITION AND PHYSICAL THERAPY. BOTH ARE IN AGREEMENT. CBC WNL EXCEPT: H/H 10.4/31.4. CMP WNL EXCEPT: BUN/CREAT 32/1.44, GFR 50, GLUCOSE 102, ALBUMIN 3.1. WE HAVE HELD ARICEPT DUE TO POOR APPETITE WITH NAUSEA. WE WILL CONTINUE MEGACE, ENSURE, EFFEXOR, IV LEVAQUIN, IV ZOSYN, NEB TREATMENTS, PERIPHERAL TPN, AND ALBUMIN. WE WILL CONTINUE TO MONITOR AND FOLLOW UP IN AM WITH LABS AND CHEST XRAY. - Past Medical Family Social History Past Med/Fam/Surg Hx: No changes since H&P Allergies: Allergies Codeine Allergy (Verified 02/10/17 16:02) - Review of Systems ROS: No change since H&P - Vital Signs and I&O's Vital Signs: Temperature 100.6 F Pulse Rate [Apical] 133 Pulse Rate [Left Brachial] 103 Pulse Rate 112 Respiratory Rate 24 Blood Pressure [Right Arm] 97/60 Blood Pressure [Left Arm] 101/60 O2 Sat by Pulse Oximetry 96 Intake and Output: Intake & Output 02/14/17 02/15/17 02/16/17 02/17/17 11:59 11:59 11:59 11:59 Intake Total 3392 3977 3611 Output Total 1350 1650 1500 Balance 2042 2327 2111 - Physical Exam Oriented: Normal, Time, Person, Place Eyes: Normal. negative: Blurred Vision, Diplopia, Discharge, Pain, Redness, Photophobia Ear: Normal. negative: Swelling, Ecchymosis, Hemotypanum, Abrasion, Laceration Nose: Normal. negative: Injected, Discharge, Blood Throat: Normal. negative: Tonsillar Hypertrophy, Red, Exudate Respiratory: Generalized, Wheezes, Rhonchi Cardiovascular: Normal. negative: Murmur, Edema : Normal. negative: Dysuria, Hematuria, Frequency, Discharge, Testicular Pain Auscultation: Bowel Sounds: Decreased. negative: Bruit Palpation: Normal. negative: Spleen Enlarged, Liver Enlarged, Mass Pulsatile Tenderness: Diffuse, Mild. negative: Rebound, Guarding, Rigidity Skin: Decreased Turgur. negative: Diaphoresis, Wound, Bruising, Ecchymosis Musculoskeletal: Tender (Tenderness to Right Chest Wall), Instability Psychiatric: Other (Confusion) Mood Description: Calm, Appropriate Affect: Normal Speech Pattern: Clear - Laboratory and Diagnostics Result Diagrams: 02/16/17 03:06 02/16/17 03:06 Labs: 02/14/17 10:00 Blood Blood Culture - Preliminary 02/14/17 09:55 Blood Blood Culture - Preliminary Laboratory WBC 7.3 X10^3/uL (3.6-10.0) 02/16/17 03:06 RBC 3.54 X10^6/uL (4.7-6.0) L 02/16/17 03:06 Hgb 10.4 g/dL (13.5-18.0) L 02/16/17 03:06 Hct 31.4 % (42.0-54.0) L 02/16/17 03:06 MCV 88.8 fL (80.0-100.0) 02/16/17 03:06 MCH 29.4 pg (27.0-34.0) 02/16/17 03:06 MCHC 33.1 g/dL (33.0-35.0) 02/16/17 03:06 RDW 15.5 % (11.6-16.5) 02/16/17 03:06 Plt Count 278 X10^3/uL (150.0-450.0) 02/16/17 03:06 Plt Count Comment Adequate (ADEQUATE) 02/11/17 05:40 MPV 7.9 fL (7.4-11.0) 02/16/17 03:06 Neut % 80.2 % (42.0-75.0) H 02/16/17 03:06 Lymph % 7.8 % (21.0-51.0) L 02/16/17 03:06 [place] % 8.3 % (0.0-13.0) 02/16/17 03:06 Eos % 3.3 % (0.9-2.9) H 02/16/17 03:06 Baso % 0.4 % (0.2-1.0) 02/16/17 03:06 Neut # 5.9 x10^3/uL (2.2-4.8) H 02/16/17 03:06 Lymph # 0.6 X10^3/uL (1.3-2.9) L 02/16/17 03:06 [place] # 0.6 x10^3/uL (0.3-0.8) 02/16/17 03:06 Eos # 0.2 x10^3/uL (0.0-0.2) 02/16/17 03:06 Baso # 0.0 X10^3/uL (0.0-0.1) 02/16/17 03:06 Absolute Nucleated RBC 0.0 /100WBC 02/16/17 03:06 Total Counted 100 02/11/17 05:40 Neutrophils % (Manual) 86 % (39-76) H 02/11/17 05:40 Lymphocytes % (Manual) 10 % (13-43) L 02/11/17 05:40 Monocytes % (Manual) 2 % (4-9) L 02/11/17 05:40 Eosinophils % (Manual) 2 % (0-6) 02/11/17 05:40 Plt Morphology Comment Normal (NORMAL) 02/11/17 05:40 RBC Morphology Normal (NORMAL) 02/11/17 05:40 Sodium 136 mmol/L (136-145) 02/16/17 03:06 Corrected Sodium TNP 02/16/17 03:06 Potassium 4.4 mmol/L (3.5-5.1) 02/16/17 03:06 Chloride 103 mmol/L (98-107) 02/16/17 03:06 Carbon Dioxide 21.2 mmol/L (21-32) 02/16/17 03:06 BUN 32 mg/dL (7-18) H 02/16/17 03:06 Creatinine 1.44 mg/dL (0.70-1.30) H 02/16/17 03:06 Est GFR (MDRD) Af Amer 60 (>60) 02/16/17 03:06 Est GFR (MDRD) Non-Af 50 (>60) L 02/16/17 03:06 Glucose 102 mg/dL (65-99) H 02/16/17 03:06 Calcium 8.8 mg/dL (8.5-10.1) 02/16/17 03:06 Corrected Calcium 9.5 mg/dL (8.5-10.1) 02/16/17 03:06 Total Bilirubin 0.60 mg/dL (0.2-1.0) 02/16/17 03:06 AST 21 Units/L (15-37) 02/16/17 03:06 ALT 31 Units/L (12-78) 02/16/17 03:06 Alkaline Phosphatase 76 Units/L (46-116) 02/16/17 03:06 Creatine Kinase 38 Units/L (39-308) L 02/11/17 05:40 CK-MB (CK-2) 1.0 ng/mL (0-4.0) 02/11/17 05:40 CK/CKMB % Calc 2.6 % (<4) 02/11/17 05:40 Troponin I < 0.02 ng/mL (0-1.5) 02/11/17 05:40 B-Natriuretic Peptide 20.7 pg/mL (0-79) 02/10/17 17:10 Total Protein 6.6 g/dL (6.4-8.2) 02/16/17 03:06 Albumin 3.1 g/dL (3.4-5.0) L 02/16/17 03:06 Globulin 3.5 g/dL (2.5-4.5) 02/16/17 03:06 Albumin/Globulin Ratio 0.9 Ratio (1.1-2.1) L 02/16/17 03:06 Specimen Type Clean catch urine 02/10/17 18:23 Urine Color Yellow (YELLOW) 02/10/17 18:23 Urine Appearance Hazy (CLEAR) 02/10/17 18:23 Urine pH 5.0 (5.0 - 8.0) 02/10/17 18:23 Ur Specific [place] 1.025 (1.000-1.030) 02/10/17 18:23 Urine Protein 1+ (NEGATIVE) 02/10/17 18:23 Urine Glucose (UA) Negative (NEGATIVE) 02/10/17 18:23 Urine Ketones Negative (NEGATIVE) 02/10/17 18:23 Urine Occult Blood 1+ (NEGATIVE) 02/10/17 18:23 Urine Nitrite Negative (NEGATIVE) 02/10/17 18:23 Urine Bilirubin Negative (NEGATIVE) 02/10/17 18:23 Urine Urobilinogen Normal (NORMAL) 02/10/17 18:23 Ur Leukocyte Esterase Negative (NEGATIVE) 02/10/17 18:23 Urine RBC Rare /HPF (NEGATIVE) 02/10/17 18:23 Urine WBC Rare /HPF (NEGATIVE) 02/10/17 18:23 Ur Squamous Epith Cells Rare /HPF (NEGATIVE) 02/10/17 18:23 Urine Bacteria Negative /HPF (NEGATIVE) 02/10/17 18:23 Ur Culture Indicated? No/not indicated 02/10/17 18:23 Influenza A (H1N1) PCR Not detected (NOT DETECT) 02/14/17 08:54 Influenza Type A (PCR) Negative (NEGATIVE) 02/14/17 08:54 Influenza Type B (PCR) Negative (NEGATIVE) 02/14/17 08:54 - Plan (1) Pneumonia Status: Acute Qualifiers: Pneumonia type: due to unspecified organism Aspiration pneumonia type: A Laterality: bilateral Lung location: lower lobe of lung Qualified Code(s): J18.9 - Pneumonia, unspecified organism Plan: CONTINUE LEVAQUIN, ZOSYN, NEB TREATMENTS, ROBITUSSIN, MONITOR LABS AND CHEST XRAY. (2) Poor appetite Status: Acute Plan: CONTINUE PERIPHERAL TPN, ALBUMIN, MONITOR INTAKE. (3) Dizziness Status: Acute Plan: CONTINUE TO MONITOR. (4) Generalized weakness Status: Acute Plan: CONTINUE PHYSICAL THERAPY, PERIPHERAL TPN, MONITOR. (5) Sinusitis Status: Acute Qualifiers: Sinusitis location: maxillary Chronicity: acute Recurrence: non- recurrent Qualified Code(s): J01.00 - Acute maxillary sinusitis, unspecified Plan: CONTINUE LEVAQUIN, ZOSYN, MONITOR. (6) Constipation by delayed colonic transit Status: Acute Plan: CONTINUE MILK OF MAGNESIA, MIRALAX, COLACE, MONITOR. (7) Hypoalbuminemia Status: Acute Plan: CONTINUE ALBUMIN, MONITOR. (8) Dehydration Status: Acute Plan: CONTINUE IV FLUIDS, MONITOR LABS. (9) Pulmonary contusion Status: Acute Qualifiers: Encounter type: initial encounter Laterality: right Qualified Code(s): S27.321A - Contusion of lung, unilateral, initial encounter Plan: CONTINUE TO MONITOR. (10) Right rib fracture Status: Acute Qualifiers: Encounter type: initial encounter Rib fracture type: multiple ribs Fracture type: closed Fracture healing: F Qualified Code(s): S22.41XA - Multiple fractures of ribs, right side, initial encounter for closed fracture Plan: PAIN MANAGMENT, MONITOR. (11) Dementia Status: Chronic Qualifiers: Dementia type: vascular dementia Alzheimer's disease onset: A Dementia behavioral disturbance: without behavioral disturbance Qualified Code(s): F01.50 - Vascular dementia without behavioral disturbance (12) Back pain Status: Chronic Qualifiers: Back pain location: low back pain Chronicity: chronic Back pain laterality: bilateral Sciatica presence: without sciatica Sciatica laterality: S Qualified Code(s): M54.5 - Low back pain; G89.29 - Other chronic pain (13) Arthritis Status: Chronic
[2017-02-16] MEDS: NS 500 ML IV 500 ML IV SCH (15:58)
[2017-02-16] MEDS: ZOCOR TAB 40 MG PO SCH (21:00)
[2017-02-16] MEDS: FLOMAX PO SCH (21:00)
[2017-02-16] MEDS: SINGULAIR TAB 10 MG PO SCH (21:00)
[2017-02-16] MEDS: SNACK - Diabetic Appropriate PO SCH (21:01)
[2017-02-16] MEDS: MIRALAX POWDER (1 DOSE 17GM) PO SCH (21:01)
[2017-02-17] MEDS: CLINIMIX 4.25 %/10 % 1,000 ML with MVI INJ (ADULT) 10 ML, TRACE ELEMENTS INJ 10 ML, TPN... IV SCH ×18 (01:20→21:14)
[2017-02-17] MEDS: ZOSYN VIAL 3.375 GM 3.375 GM in NS 100 ML IV + SPIKE MINIBAG* 100 ML IV SCH ×3 (05:38→21:10)
[2017-02-17 06:23] LABS: BASOPHILS % (AUTO) 0.3 % (0.2-1.0); EOSINOPHILS # (AUTO) 0.2 x10^3/uL (0.0-0.2); EOSINOPHILS % (AUTO) 3.3 % (0.9-2.9); HEMATOCRIT 27.3 % (42.0-54.0); HEMOGLOBIN 9.3 g/dL (13.5-18.0); LYMPHOCYTES # (AUTO) 0.7 X10^3/uL (1.3-2.9); LYMPHOCYTES % (AUTO) 9.7 % (21.0-51.0); MEAN CORPUSCULAR HEMOGLOBIN 30.2 pg (27.0-34.0); MEAN CORPUSCULAR VOLUME 88.8 fL (80.0-100.0); MONOCYTES # (AUTO) 0.5 x10^3/uL (0.3-0.8); MONOCYTES % (AUTO) 7.4 % (0.0-13.0); NEUTROPHILS # (AUTO) 5.4 x10^3/uL (2.2-4.8); NEUTROPHILS % (AUTO) 79.3 % (42.0-75.0); PLATELET COUNT 298 X10^3/uL (150.0-450.0); RED BLOOD COUNT 3.07 X10^6/uL (4.7-6.0); RED CELL DISTRIBUTION WIDTH 15.5 % (11.6-16.5); WHITE BLOOD COUNT 6.8 X10^3/uL (3.6-10.0)
[2017-02-17 06:37] LABS: ALANINE AMINOTRANSFERASE 27 Units/L (12-78); ALKALINE PHOSPHATASE 68 Units/L (46-116); ASPARTATE AMINO TRANSFERASE 21 Units/L (15-37); BLOOD UREA NITROGEN 46 mg/dL (7-18); CALCIUM 8.3 mg/dL (8.5-10.1); CARBON DIOXIDE 20.5 mmol/L (21-32); CHLORIDE 103 mmol/L (98-107); COR CA(FOR HYPOALB) 9.1 mg/dL (8.5-10.1); GLUCOSE 110 mg/dL (65-99); SODIUM 135 mmol/L (136-145); TOTAL PROTEIN 6.2 g/dL (6.4-8.2); eGFR BLACK RACES 57 (>60); eGFR NON BLACK RACES 48 (>60)
[2017-02-17 06:50] LABS: TOTAL PSA 1.35 ng/mL (0.13-4.0)
--- NOTE | 2017-02-17 07:06 | RAD ---
HISTORY: Cough, congestion, fever Study: Chest one view Comparison: February 16, 2017, February 15, 2017, chest CT February 16, 2017 Findings: The heart is within normal limits in size. The warren are normal. The lungs are well inflated. The pan und-glass infiltrates obvious on the recent chest CT are not well demonstrated on plain film. No ple ural effusions are identified. The bony thorax is unremarkable. IMPRESSION: The ground-glass infiltrates visualized on the recent chest CT are not well demonstrated on plain fi lm No new infiltrates are identified. Reported By:
[2017-02-17] MEDS ORDERED: ALLEGRA ONE (08:32)
[2017-02-17] MEDS: NAMENDA TAB 10 MG PO SCH (08:39)
[2017-02-17] MEDS: TEKTURNA PO SCH (08:39)
[2017-02-17] MEDS: MEGACE PO SCH ×2 (08:39→21:00)
[2017-02-17] MEDS: ASPIRIN EC 81 MG PO SCH (08:40)
[2017-02-17] MEDS: ALLEGRA PO SCH (08:40)
[2017-02-17] MEDS: COLACE CAP 100 MG PO SCH ×2 (08:40→21:00)
[2017-02-17] MEDS: ALBUMIN HUMAN 25%- 100ML 100 ML IV SCH (08:40)
[2017-02-17] MEDS: EFFEXOR TAB 37.5 MG (BID DOSING) PO SCH ×2 (08:40→21:27)
[2017-02-17] MEDS: ROBITUSSIN DM PO SCH ×4 (08:40→21:00)
[2017-02-17] MEDS: LEVAQUIN PREMIX IV 750 MG 750 MG/150 ML BAG IV SCH (08:41)
[2017-02-17] MEDS: XOPENEX 1.25 MG/3 ML NEB SCH ×4 (08:45→20:44)
[2017-02-17] MEDS: LOVENOX INJ 30 MG SYR SC SCH ×2 (08:51→20:58)
[2017-02-17] MEDS: FLONASE NASAL SPRAY ENOSTRIL SCH (08:51)
[2017-02-17] MEDS: NYSTATIN POWDER TOP SCH ×2 (08:52→21:28)
[2017-02-17] MEDS: PEPCID 20 MG IV PREMIX* 20 MG/50 ML BAG IV SCH (10:02)
[2017-02-17] MEDS: ZOVIRAX TOP SCH ×3 (10:02→17:34)
[2017-02-17] MEDS: PROTONIX INJ 40 MG VIAL IVP SCH (10:02)
--- NOTE | 2017-02-17 11:41 | PCM.PROG ---
Progress Note - Progress Note for Day of Date: 02/17/17 - Subjective Subjective: PATIENT IS NOTED WITH A TEMPERATURE OF 101F THIS MORNING. AND DAUGHTER AT BEDSIDE. PATIENT CONTINUES ON PNEUMONIA PROTOCOL FOR BILATERAL PNEUMONIA WITH IV LEVAQUIN, IV ZOSYN, NEB TREATMENTS, ROBITUSSIN, AND SUPPLEMENTAL OXYGEN. PATIENT CONTINUES TO REPORT NAUSEA WITH INTERMITTENT VOMITING. ON AUSCULTATION, LUNGS CONTINUE WITH SCATTERED WHEEZING AND RHONCHI THROUGHOUT. PHYSICAL THERAPY ATTEMPTED TO WORK WITH PATIENT YESTERDAY; HOWEVER , PATIENT WAS TOO WEAK TO AMBULATE. PATIENT WAS ABLE TO SIT IN CHAIR FOR SEVERAL HOURS. DAUGHTER STATES PATIENT DRANK APPROXIMATELY 1 1/2 ENSURES YESERDAY. WE ARE PLANNING TO CHANGE PATIENT TO SWINGBED STATUS FOR NUTRITION AND PHYSICAL THERAPY WHEN PNEUMONIA IS RESOLVED. A SPUTUM WAS UNABLE TO BE COLLECTED THE OTHER DAY DUE TO NON-PRODUCTIVE COUGH. WE WILL ATTEMPT TO COLLECT A SPUTUM SAMPLE TODAY. PATIENT HAS A FEVER BLISTER TO LOWER LIP. CBC WNL EXCEPT: H/H 9.3/27.3. CMP WNL EXCEPT: SODIUM 135, BUN/CREAT 46/1.50, GFR 48 , GLUCOSE 110, CALCIUM 8.3, TOT PROTEIN 6.2, ALBUMIN 3.0. WE WILL CONTINUE MEGACE, ENSURE, EFFEXOR, IV LEVAQUIN, IV ZOSYN, NEB TREATMENTS, PERIPHERAL TPN, AND ALBUMIN. WE WILL CONSULT GI, OBTAIN A MYCOPLASMA PNEUMONIA, START PEPCID, AND ACYCLOVIR OINTMENT FOR LIPS. WE WILL CONTINUE TO MONITOR AND FOLLOW UP IN AM WITH LABS AND CHEST XRAY. - Past Medical Family Social History Past Med/Fam/Surg Hx: No changes since H&P Allergies: Allergies Codeine Allergy (Verified 02/10/17 16:02) - Review of Systems ROS: No change since H&P - Vital Signs and I&O's Vital Signs: Temperature 101 F Pulse Rate [Apical] 123 Pulse Rate [Left Brachial] 103 Pulse Rate 112 Respiratory Rate 21 Blood Pressure [Right Arm] 122/73 Blood Pressure [Left Arm] 101/60 O2 Sat by Pulse Oximetry 97 Intake and Output: Intake & Output 02/14/17 02/15/17 02/16/17 02/17/17 11:59 11:59 11:59 11:59 Intake Total 3392 3977 1039 3271 Output Total 1350 1650 1500 875 Balance 2042 2327 2019 2396 - Physical Exam Oriented: Normal, Time, Person, Place Eyes: Normal. negative: Blurred Vision, Diplopia, Discharge, Pain, Redness, Photophobia Ear: Normal. negative: Swelling, Ecchymosis, Hemotypanum, Abrasion, Laceration Nose: Normal. negative: Injected, Discharge, Blood Throat: Normal. negative: Tonsillar Hypertrophy, Red, Exudate Respiratory: Generalized, Wheezes, Rhonchi Cardiovascular: Normal. negative: Murmur, Edema : Normal. negative: Dysuria, Hematuria, Frequency, Discharge, Testicular Pain Auscultation: Bowel Sounds: Decreased. negative: Bruit Palpation: Normal. negative: Spleen Enlarged, Liver Enlarged, Mass Pulsatile Tenderness: Diffuse, Mild. negative: Rebound, Guarding, Rigidity Skin: Decreased Turgur. negative: Diaphoresis, Wound, Bruising, Ecchymosis Musculoskeletal: Tender (Tenderness to Right Chest Wall), Instability Psychiatric: Other (Intermittent Confusion) Mood Description: Calm, Appropriate Affect: Normal Speech Pattern: Clear, Appropriate - Laboratory and Diagnostics Result Diagrams: 02/17/17 05:37 02/17/17 05:37 Labs: 02/17/17 09:16 Sputum - Expectorated Sputum - Final 02/14/17 10:00 Blood Blood Culture - Preliminary 02/14/17 09:55 Blood Blood Culture - Preliminary Laboratory WBC 6.8 X10^3/uL (3.6-10.0) 02/17/17 05:37 RBC 3.07 X10^6/uL (4.7-6.0) L 02/17/17 05:37 Hgb 9.3 g/dL (13.5-18.0) L 02/17/17 05:37 Hct 27.3 % (42.0-54.0) L 02/17/17 05:37 MCV 88.8 fL (80.0-100.0) 02/17/17 05:37 MCH 30.2 pg (27.0-34.0) 02/17/17 05:37 MCHC 34.0 g/dL (33.0-35.0) 02/17/17 05:37 RDW 15.5 % (11.6-16.5) 02/17/17 05:37 Plt Count 298 X10^3/uL (150.0-450.0) 02/17/17 05:37 Plt Count Comment Adequate (ADEQUATE) 02/11/17 05:40 MPV 8.0 fL (7.4-11.0) 02/17/17 05:37 Neut % 79.3 % (42.0-75.0) H 02/17/17 05:37 Lymph % 9.7 % (21.0-51.0) L 02/17/17 05:37 [place] % 7.4 % (0.0-13.0) 02/17/17 05:37 Eos % 3.3 % (0.9-2.9) H 02/17/17 05:37 Baso % 0.3 % (0.2-1.0) 02/17/17 05:37 Neut # 5.4 x10^3/uL (2.2-4.8) H 02/17/17 05:37 Lymph # 0.7 X10^3/uL (1.3-2.9) L 02/17/17 05:37 [place] # 0.5 x10^3/uL (0.3-0.8) 02/17/17 05:37 Eos # 0.2 x10^3/uL (0.0-0.2) 02/17/17 05:37 Baso # 0.0 X10^3/uL (0.0-0.1) 02/17/17 05:37 Absolute Nucleated RBC 0.0 /100WBC 02/17/17 05:37 Total Counted 100 02/11/17 05:40 Neutrophils % (Manual) 86 % (39-76) H 02/11/17 05:40 Lymphocytes % (Manual) 10 % (13-43) L 02/11/17 05:40 Monocytes % (Manual) 2 % (4-9) L 02/11/17 05:40 Eosinophils % (Manual) 2 % (0-6) 02/11/17 05:40 Plt Morphology Comment Normal (NORMAL) 02/11/17 05:40 RBC Morphology Normal (NORMAL) 02/11/17 05:40 Sodium 135 mmol/L (136-145) L 02/17/17 05:37 Corrected Sodium TNP 02/17/17 05:37 Potassium 4.3 mmol/L (3.5-5.1) 02/17/17 05:37 Chloride 103 mmol/L (98-107) 02/17/17 05:37 Carbon Dioxide 20.5 mmol/L (21-32) L 02/17/17 05:37 BUN 46 mg/dL (7-18) H 02/17/17 05:37 Creatinine 1.50 mg/dL (0.70-1.30) H 02/17/17 05:37 Est GFR (MDRD) Af Amer 57 (>60) L 02/17/17 05:37 Est GFR (MDRD) Non-Af 48 (>60) L 02/17/17 05:37 Glucose 110 mg/dL (65-99) H 02/17/17 05:37 Calcium 8.3 mg/dL (8.5-10.1) L 02/17/17 05:37 Corrected Calcium 9.1 mg/dL (8.5-10.1) 02/17/17 05:37 Total Bilirubin 0.50 mg/dL (0.2-1.0) 02/17/17 05:37 AST 21 Units/L (15-37) 02/17/17 05:37 ALT 27 Units/L (12-78) 02/17/17 05:37 Alkaline Phosphatase 68 Units/L (46-116) 02/17/17 05:37 Creatine Kinase 38 Units/L (39-308) L 02/11/17 05:40 CK-MB (CK-2) 1.0 ng/mL (0-4.0) 02/11/17 05:40 CK/CKMB % Calc 2.6 % (<4) 02/11/17 05:40 Troponin I < 0.02 ng/mL (0-1.5) 02/11/17 05:40 B-Natriuretic Peptide 20.7 pg/mL (0-79) 02/10/17 17:10 Total Protein 6.2 g/dL (6.4-8.2) L 02/17/17 05:37 Albumin 3.0 g/dL (3.4-5.0) L 02/17/17 05:37 Globulin 3.2 g/dL (2.5-4.5) 02/17/17 05:37 Albumin/Globulin Ratio 0.9 Ratio (1.1-2.1) L 02/17/17 05:37 Total PSA 1.35 ng/mL (0.13-4.0) 02/17/17 05:37 Specimen Type Clean catch urine 02/10/17 18:23 Urine Color Yellow (YELLOW) 02/10/17 18:23 Urine Appearance Hazy (CLEAR) 02/10/17 18:23 Urine pH 5.0 (5.0 - 8.0) 02/10/17 18:23 Ur Specific [place] 1.025 (1.000-1.030) 02/10/17 18:23 Urine Protein 1+ (NEGATIVE) 02/10/17 18:23 Urine Glucose (UA) Negative (NEGATIVE) 02/10/17 18:23 Urine Ketones Negative (NEGATIVE) 02/10/17 18:23 Urine Occult Blood 1+ (NEGATIVE) 02/10/17 18:23 Urine Nitrite Negative (NEGATIVE) 02/10/17 18:23 Urine Bilirubin Negative (NEGATIVE) 02/10/17 18:23 Urine Urobilinogen Normal (NORMAL) 02/10/17 18:23 Ur Leukocyte Esterase Negative (NEGATIVE) 02/10/17 18:23 Urine RBC Rare /HPF (NEGATIVE) 02/10/17 18:23 Urine WBC Rare /HPF (NEGATIVE) 02/10/17 18:23 Ur Squamous Epith Cells Rare /HPF (NEGATIVE) 02/10/17 18:23 Urine Bacteria Negative /HPF (NEGATIVE) 02/10/17 18:23 Ur Culture Indicated? No/not indicated 02/10/17 18:23 Influenza A (H1N1) PCR Not detected (NOT DETECT) 02/14/17 08:54 Influenza Type A (PCR) Negative (NEGATIVE) 02/14/17 08:54 Influenza Type B (PCR) Negative (NEGATIVE) 02/14/17 08:54 - Plan (1) Pneumonia Status: Acute Qualifiers: Pneumonia type: due to unspecified organism Aspiration pneumonia type: A Laterality: bilateral Lung location: lower lobe of lung Qualified Code(s): J18.9 - Pneumonia, unspecified organism Plan: OBTAIN MYCOPLASMA PNEUMONIA, OBTAIN SPUTUM CULTURE, CONTINUE LEVAQUIN, ZOSYN, NEB TREATMENTS, ROBITUSSIN, MONITOR LABS AND CHEST XRAY. (2) Nausea & vomiting Status: Acute Qualifiers: Vomiting type: V Vomiting Intractability: V Plan: CONSULT GI, START PEPCID, CONTINUE IV FLUIDS, IV ZOFRAN, PROTONIX, MONITOR. (3) Poor appetite Status: Acute Plan: CONTINUE PERIPHERAL TPN, ALBUMIN, MEGACE, ENSURE, MONITOR INTAKE. (4) Dizziness Status: Acute Plan: CONTINUE TO MONITOR. (5) Generalized weakness Status: Acute Plan: CONTINUE PHYSICAL THERAPY, PERIPHERAL TPN, ENCOURAGE NUTRITION, MONITOR. (6) Herpes labialis Status: Acute Plan: START ACYCLOVIR OINTMENT TO LIPS, MONITOR. (7) Sinusitis Status: Acute Qualifiers: Sinusitis location: maxillary Chronicity: acute Recurrence: non- recurrent Qualified Code(s): J01.00 - Acute maxillary sinusitis, unspecified Plan: CONTINUE LEVAQUIN, ZOSYN, MONITOR. (8) Constipation by delayed colonic transit Status: Acute Plan: CONTINUE MILK OF MAGNESIA, MIRALAX, COLACE, MONITOR. (9) Hypoalbuminemia Status: Acute Plan: CONTINUE ALBUMIN, MONITOR. (10) Dehydration Status: Acute Plan: CONTINUE IV FLUIDS, MONITOR LABS. (11) Pulmonary contusion Status: Acute Qualifiers: Encounter type: initial encounter Laterality: right Qualified Code(s): S27.321A - Contusion of lung, unilateral, initial encounter Plan: CONTINUE TO MONITOR. (12) Right rib fracture Status: Acute Qualifiers: Encounter type: initial encounter Rib fracture type: multiple ribs Fracture type: closed Fracture healing: F Qualified Code(s): S22.41XA - Multiple fractures of ribs, right side, initial encounter for closed fracture Plan: PAIN MANAGMENT, MONITOR. (13) Dementia Status: Chronic Qualifiers: Dementia type: vascular dementia Alzheimer's disease onset: A Dementia behavioral disturbance: without behavioral disturbance Qualified Code(s): F01.50 - Vascular dementia without behavioral disturbance (14) Back pain Status: Chronic Qualifiers: Back pain location: low back pain Chronicity: chronic Back pain laterality: bilateral Sciatica presence: without sciatica Sciatica laterality: S Qualified Code(s): M54.5 - Low back pain; G89.29 - Other chronic pain (15) Arthritis Status: Chronic
[2017-02-17] MEDS: LOPRESSOR TAB 25 MG PO SCH ×2 (11:50→21:00)
[2017-02-17 13:41] LABS: MYCOPLASMA PNEUMONIAE IGM AB NEGATIVE (NEGATIVE)
[2017-02-17] MEDS: TYLENOL 325 MG TAB PO PRN (20:59)
[2017-02-17] MEDS: MIRALAX POWDER (1 DOSE 17GM) PO SCH (20:59)
[2017-02-17] MEDS: FLOMAX PO SCH (21:00)
[2017-02-17] MEDS: SINGULAIR TAB 10 MG PO SCH (21:00)
[2017-02-17] MEDS: RESTORIL CAP 15 MG PO PRN (21:00)
[2017-02-17] MEDS: ZOCOR TAB 40 MG PO SCH (21:00)
[2017-02-17] MEDS: SNACK - Diabetic Appropriate PO SCH (21:27)
[2017-02-17] MEDS: NS 500 ML IV 500 ML IV SCH (21:28)
[2017-02-18] MEDS: ZOVIRAX TOP SCH ×3 (01:30→21:30)
[2017-02-18] MEDS: CLINIMIX 4.25 %/10 % 1,000 ML with MVI INJ (ADULT) 10 ML, TRACE ELEMENTS INJ 10 ML, TPN... IV SCH ×18 (04:11→20:53)
[2017-02-18] MEDS: ZOSYN VIAL 3.375 GM 3.375 GM in NS 100 ML IV + SPIKE MINIBAG* 100 ML IV SCH ×3 (05:43→21:08)
[2017-02-18 06:21] LABS: ALANINE AMINOTRANSFERASE 32 Units/L (12-78); ALBUMIN 3.1 g/dL (3.4-5.0); ALKALINE PHOSPHATASE 78 Units/L (46-116); ASPARTATE AMINO TRANSFERASE 28 Units/L (15-37); BLOOD UREA NITROGEN 44 mg/dL (7-18); CALCIUM 8.4 mg/dL (8.5-10.1); CARBON DIOXIDE 19.5 mmol/L (21-32); CHLORIDE 103 mmol/L (98-107); COR CA(FOR HYPOALB) 9.1 mg/dL (8.5-10.1); GLUCOSE 106 mg/dL (65-99); SODIUM 134 mmol/L (136-145); TOTAL PROTEIN 6.4 g/dL (6.4-8.2); eGFR BLACK RACES > 60 (>60); eGFR NON BLACK RACES 51 (>60)
--- NOTE | 2017-02-18 06:31 | RAD ---
HISTORY: Dehydration, weakness Study: Chest one view Comparison: February 17, 2017 Findings: The patient is rotated to the left. The heart is upper limits normal in size. The warren are normal. T he lungs are mildly hypoinflated. The right lung appears clear. There is mild perihilar infiltrate n ow visible on the left. No pleural effusions are identified. The bony thorax is unremarkable. IMPRESSION: Now visible are perihilar infiltrates on the left Reported By:
[2017-02-18 06:33] LABS: BASOPHILS % (AUTO) 0.5 % (0.2-1.0); MEAN CORPUSCULAR HGB CONC 34.1 g/dL (33.0-35.0)
[2017-02-18 06:55] LABS: EOSINOPHILS % (AUTO) 3.2 % (0.9-2.9); HEMATOCRIT 28.7 % (42.0-54.0); HEMOGLOBIN 9.8 g/dL (13.5-18.0); LYMPHOCYTES # (AUTO) 0.8 X10^3/uL (1.3-2.9); LYMPHOCYTES % (AUTO) 10.2 % (21.0-51.0); MONOCYTES # (AUTO) 0.3 x10^3/uL (0.3-0.8); MONOCYTES % (AUTO) 7.6 % (0.0-13.0); NEUTROPHILS # (AUTO) 6.1 x10^3/uL (2.2-4.8); NEUTROPHILS % (AUTO) 78.5 % (42.0-75.0); PLATELET COUNT 197 X10^3/uL (150.0-450.0); RED BLOOD COUNT 3.26 X10^6/uL (4.7-6.0); RED CELL DISTRIBUTION WIDTH 15.5 % (11.6-16.5)
[2017-02-18 07:02] LABS: WHITE BLOOD COUNT 7.8 X10^3/uL (3.6-10.0)
[2017-02-18 07:03] LABS: PLATELET MORPHOLOGY COMMENT NORMAL (NORMAL)
[2017-02-18] MEDS: TYLENOL 325 MG TAB PO PRN ×2 (07:22→20:52)
[2017-02-18] MEDS ORDERED: ALLEGRA ONE (09:12)
[2017-02-18] MEDS: PROTONIX INJ 40 MG VIAL IVP SCH (09:19)
[2017-02-18] MEDS: LOVENOX INJ 30 MG SYR SC SCH ×2 (09:20→20:53)
[2017-02-18] MEDS: XOPENEX 1.25 MG/3 ML NEB SCH ×4 (09:22→21:33)
[2017-02-18] MEDS: NYSTATIN POWDER TOP SCH ×2 (09:30→21:26)
[2017-02-18] MEDS ORDERED: ZYPREXA 2.5 MG PO SCH (10:00)
[2017-02-18 10:34] LABS: BILIRUBIN,URINE NEGATIVE (NEGATIVE); BLOOD/HEMOGLOBIN,URINE 2+ (NEGATIVE); GLUCOSE, URINE NEGATIVE (NEGATIVE); KETONES,URINE NEGATIVE (NEGATIVE); LEUKOCYTE ESTERASE ,URINE NEGATIVE (NEGATIVE); NITRITES,URINE NEGATIVE (NEGATIVE); PROTEIN,URINE 2+ (NEGATIVE); UROBILINOGEN,URINE NORMAL (NORMAL)
[2017-02-18] MEDS: PEPCID 20 MG IV PREMIX* 20 MG/50 ML BAG IV SCH (10:36)
[2017-02-18 10:42] LABS: AMYLASE 59 Units/L (25-115); LIPASE 236 Units/L (73-393)
[2017-02-18 10:43] LABS: APPEARANCE,URINE SLIGHTLY HAZY (CLEAR); BACTERIA,URINE NEGATIVE /HPF (NEGATIVE); COLOR,URINE YELLOW (YELLOW); RBC,URINE 0-3 /HPF (NEGATIVE); RENAL EPITHELIAL CELLS,URINE RARE /HPF (NEGATIVE); SQUAMOUS EPITHELIAL CELL,UR RARE /HPF (NEGATIVE)
[2017-02-18 10:44] LABS: AMORPHOUS SEDIMENT,UR TRACE /HPF (NEGATIVE)
[2017-02-18] MEDS: ALBUMIN HUMAN 25%- 100ML 100 ML IV SCH (11:37)
[2017-02-18] MEDS: MUCOMYST 20% 200 MG/ML NEB SCH ×3 (12:32→21:33)
[2017-02-18] MEDS: DECADRON JET NEB NEB SCH ×3 (12:32→21:33)
--- NOTE | 2017-02-18 12:32 | RAD ---
HISTORY: Nasogastric tube placement Study: KUB Comparison: None Findings: Evaluation of the abdomen demonstrates a nasogastric tube in the stomach. The bowel gas pattern is u nremarkable. No pathological soft tissue mass or calcification can be observed. The bony structure s are grossly intact. IMPRESSION: 1. Nasogastric tube well in stomach Reported By:
[2017-02-18] MEDS ORDERED: MUCOMYST 20% 200 MG/ML NEB SCH (13:00)
[2017-02-18] MEDS: ASPIRIN EC 81 MG PO SCH (13:44)
[2017-02-18] MEDS: ALLEGRA PO SCH (13:44)
[2017-02-18] MEDS: FLONASE NASAL SPRAY ENOSTRIL SCH (13:45)
[2017-02-18] MEDS: COLACE CAP 100 MG PO SCH ×2 (13:45→20:52)
[2017-02-18] MEDS: MEGACE PO SCH ×2 (13:45→20:52)
[2017-02-18] MEDS: ROBITUSSIN DM PO SCH ×3 (13:47→20:52)
[2017-02-18] MEDS: NAMENDA TAB 10 MG PO SCH (13:47)
[2017-02-18] MEDS: DIFLUCAN 200 MG IV PREMIX* 200 MG/100 ML BAG IV SCH (14:42)
[2017-02-18] MEDS ORDERED: NS 100 ML IV 100 ML IV ONE (15:19)
--- NOTE | 2017-02-18 16:02 | PCM.PROG ---
Progress Note - Progress Note for Day of Date: 02/18/17 - Subjective Subjective: PATIENT CONTINUES WITH FEVER THIS MORNING. AND DAUGHTER AT BEDSIDE. PATIENT CONTINUES ON PNEUMONIA PROTOCOL FOR BILATERAL PNEUMONIA WITH IV LEVAQUIN, IV ZOSYN, NEB TREATMENTS, ROBITUSSIN, AND SUPPLEMENTAL OXYGEN. HE IS SOMNOLENT WITH SNORING RESPIRATIONS UPON ROUNDS. DAUGHTER REPORTS PATIENT HAS BEEN AGITATED THROUGH THE NIGHT. 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 ABDOMEN IS NOTED WITH DISTENTION, DIFFUSE ABDOMINAL PAIN. ON AUSCULTATION, LUNGS CONTINUE WITH SCATTERED WHEEZING AND RHONCHI THROUGHOUT. PHYSICAL THERAPY CONTINUES PATIENT ALLOWS AND TOLERATES. REPORTS PATIENT DRANK THREE ENSURES YESTERDAY AND HAD A SNACK THROUGH THE NIGHT. A SPUTUM SAMPLE WAS COLLECTED AND SENT TO LAB, CULTURES ARE PENDING. PATIENT HAS MULTIPLE MOUTH ULCERS TO MOUTH AND TONGUE, WHICH IS YEAST RELATED. PATIENT HAS ELEVATED HEART RATE IN TO 120'S-130'S, SINUS TACH. PATIENT WAS STARTED ON METOPROLOL 25MG YESTERDAY. WE WILL INCREASE DOSE TODAY. CBC WNL EXCEPT: H/H 9.8/28.7. CMP WNL EXCEPT: SODIUM 134, BUN/CREAT 44/1.40, GFR 51, GLUCOSE 106, CALCIUM 8.4, ALBUMIN 3.1. WE WILL CONSULT GI, START DIFLUCAN, SMARTVEST, MUCOMYST AND DECADRON WITH NEB TREATMENTS, INCREASE METOPROLOL TO 50MG. WE WILL DISCONTINUE EFFEXOR, START FLUOXETINE, ZYPREXA, KLONOPIN AT HS, OBTAIN CT OF ABD/PELVIS. WE WILL CONTINUE MEGACE, ENSURE, EFFEXOR, IV LEVAQUIN, IV ZOSYN, NEB TREATMENTS, PERIPHERAL TPN, AND ALBUMIN. WE WILL CONTINUE TO MONITOR AND FOLLOW UP IN AM WITH LABS AND CHEST XRAY. - Past Medical Family Social History Past Med/Fam/Surg Hx: No changes since H&P Allergies: Allergies Codeine Allergy (Verified 02/10/17 16:02) - Review of Systems ROS: No change since H&P - Vital Signs and I&O's Vital Signs: Temperature 102.3 F Pulse Rate [Apical] 91 Pulse Rate [Left Brachial] 103 Pulse Rate 102 Respiratory Rate 27 Blood Pressure [Right Arm] 127/74 Blood Pressure [Left Arm] 101/60 O2 Sat by Pulse Oximetry 100 Intake and Output: Intake & Output 0302/17/17 02/18/17 02/19/17 11:59 11:59 11:59 11:59 Intake Total 7948 6906 3616 Output Total 5868 617 3478 Balance 20187 7 - Physical Exam Oriented: Normal, Time, Person, Place Eyes: Normal. negative: Blurred Vision, Diplopia, Discharge, Pain, Redness, Photophobia Ear: Normal. negative: Swelling, Ecchymosis, Hemotypanum, Abrasion, Laceration Nose: Normal. negative: Injected, Discharge, Blood Throat: Normal. negative: Tonsillar Hypertrophy, Red, Exudate Respiratory: Generalized, Wheezes, Rhonchi Cardiovascular: Normal. negative: Murmur, Edema : Normal. negative: Dysuria, Hematuria, Frequency, Discharge, Testicular Pain Auscultation: Bowel Sounds: Decreased. negative: Bruit Palpation: Normal. negative: Spleen Enlarged, Liver Enlarged, Mass Pulsatile Tenderness: Diffuse, Mild, Other (Distention). negative: Rebound, Guarding, Rigidity Skin: Decreased Turgur. negative: Diaphoresis, Wound, Bruising, Ecchymosis Musculoskeletal: Tender (Tenderness to Right Chest Wall), Instability Psychiatric: Other (Confusion) Mood Description: Calm Affect: Normal Speech Pattern: Unclear, Inappropriate - Laboratory and Diagnostics Result Diagrams: 02/18/17 05:00 02/18/17 05:00 Labs: 02/16/17 03:19 Blood Blood Culture - Preliminary 02/16/17 03:06 Blood Blood Culture - Preliminary 02/17/17 09:16 Sputum - Expectorated Sputum Sputum Culture - Preliminary 02/17/17 09:16 Sputum - Expectorated Sputum - Final 02/14/17 10:00 Blood Blood Culture - Preliminary 02/14/17 09:55 Blood Blood Culture - Preliminary Laboratory WBC 7.8 X10^3/uL (3.6-10.0) 02/18/17 05:00 RBC 3.26 X10^6/uL (4.7-6.0) L 02/18/17 05:00 Hgb 9.8 g/dL (13.5-18.0) L 02/18/17 05:00 Hct 28.7 % (42.0-54.0) L 02/18/17 05:00 MCV 88.0 fL (80.0-100.0) 02/18/17 05:00 MCH 30.0 pg (27.0-34.0) 02/18/17 05:00 MCHC 34.1 g/dL (33.0-35.0) 02/18/17 05:00 RDW 15.5 % (11.6-16.5) 02/18/17 05:00 Plt Count 197 X10^3/uL (150.0-450.0) 02/18/17 05:00 Plt Count Comment Adequate (ADEQUATE) 02/18/17 05:00 MPV 8.0 fL (7.4-11.0) 02/18/17 05:00 Neut % 78.5 % (42.0-75.0) H 02/18/17 05:00 Lymph % 10.2 % (21.0-51.0) L 02/18/17 05:00 [place] % 7.6 % (0.0-13.0) 02/18/17 05:00 Eos % 3.2 % (0.9-2.9) H 02/18/17 05:00 Baso % 0.5 % (0.2-1.0) 02/18/17 05:00 Neut # 6.1 x10^3/uL (2.2-4.8) H 02/18/17 05:00 Lymph # 0.8 X10^3/uL (1.3-2.9) L 02/18/17 05:00 [place] # 0.3 x10^3/uL (0.3-0.8) 02/18/17 05:00 Eos # 0.0 x10^3/uL (0.0-0.2) 02/18/17 05:00 Baso # 0.0 X10^3/uL (0.0-0.1) 02/18/17 05:00 Absolute Nucleated RBC 0.0 /100WBC 02/18/17 05:00 Total Counted 100 02/11/17 05:40 Neutrophils % (Manual) 86 % (39-76) H 02/11/17 05:40 Lymphocytes % (Manual) 10 % (13-43) L 02/11/17 05:40 Monocytes % (Manual) 2 % (4-9) L 02/11/17 05:40 Eosinophils % (Manual) 2 % (0-6) 02/11/17 05:40 Plt Clumps, EDTA Rare 02/18/17 05:00 Plt Morphology Comment Normal (NORMAL) 02/18/17 05:00 RBC Morphology Normal (NORMAL) 02/18/17 05:00 Sodium 134 mmol/L (136-145) L 02/18/17 05:00 Corrected Sodium TNP 02/18/17 05:00 Potassium 4.5 mmol/L (3.5-5.1) 02/18/17 05:00 Chloride 103 mmol/L (98-107) 02/18/17 05:00 Carbon Dioxide 19.5 mmol/L (21-32) L 02/18/17 05:00 BUN 44 mg/dL (7-18) H 02/18/17 05:00 Creatinine 1.40 mg/dL (0.70-1.30) H 02/18/17 05:00 Est GFR (MDRD) Af Amer > 60 (>60) 02/18/17 05:00 Est GFR (MDRD) Non-Af 51 (>60) L 02/18/17 05:00 Glucose 106 mg/dL (65-99) H 02/18/17 05:00 Calcium 8.4 mg/dL (8.5-10.1) L 02/18/17 05:00 Corrected Calcium 9.1 mg/dL (8.5-10.1) 02/18/17 05:00 Total Bilirubin 0.40 mg/dL (0.2-1.0) 02/18/17 05:00 AST 28 Units/L (15-37) 02/18/17 05:00 ALT 32 Units/L (12-78) 02/18/17 05:00 Alkaline Phosphatase 78 Units/L (46-116) 02/18/17 05:00 Creatine Kinase 38 Units/L (39-308) L 02/11/17 05:40 CK-MB (CK-2) 1.0 ng/mL (0-4.0) 02/11/17 05:40 CK/CKMB % Calc 2.6 % (<4) 02/11/17 05:40 Troponin I < 0.02 ng/mL (0-1.5) 02/11/17 05:40 B-Natriuretic Peptide 20.7 pg/mL (0-79) 02/10/17 17:10 Total Protein 6.4 g/dL (6.4-8.2) 02/18/17 05:00 Albumin 3.1 g/dL (3.4-5.0) L 02/18/17 05:00 Globulin 3.3 g/dL (2.5-4.5) 02/18/17 05:00 Albumin/Globulin Ratio 0.9 Ratio (1.1-2.1) L 02/18/17 05:00 Amylase 59 Units/L (25-115) 02/18/17 05:00 Lipase 236 Units/L (73-393) 02/18/17 05:00 Total PSA 1.35 ng/mL (0.13-4.0) 02/17/17 05:37 Specimen Type Catherized urine 02/18/17 10:11 Urine Color Yellow (YELLOW) 02/18/17 10:11 Urine Appearance Slightly hazy (CLEAR) 02/18/17 10:11 Urine pH 5.0 (5.0 - 8.0) 02/18/17 10:11 Ur Specific [place] 1.015 (1.000-1.030) 02/18/17 10:11 Urine Protein 2+ (NEGATIVE) 02/18/17 10:11 Urine Glucose (UA) Negative (NEGATIVE) 02/18/17 10:11 Urine Ketones Negative (NEGATIVE) 02/18/17 10:11 Urine Occult Blood 2+ (NEGATIVE) 02/18/17 10:11 Urine Nitrite Negative (NEGATIVE) 02/18/17 10:11 Urine Bilirubin Negative (NEGATIVE) 02/18/17 10:11 Urine Urobilinogen Normal (NORMAL) 02/18/17 10:11 Ur Leukocyte Esterase Negative (NEGATIVE) 02/18/17 10:11 Urine RBC 0-3 /HPF (NEGATIVE) 02/18/17 10:11 Urine WBC 2-5 /HPF (NEGATIVE) 02/18/17 10:11 Ur Squamous Epith Cells Rare /HPF (NEGATIVE) 02/18/17 10:11 Ur Renal Epithelial Cell Rare /HPF (NEGATIVE) 02/18/17 10:11 Amorphous Sediment Trace /HPF (NEGATIVE) 02/18/17 10:11 Urine Bacteria Negative /HPF (NEGATIVE) 02/18/17 10:11 Ur Culture Indicated? No/not indicated 02/18/17 10:11 Influenza A (H1N1) PCR Not detected (NOT DETECT) 02/14/17 08:54 Influenza Type A (PCR) Negative (NEGATIVE) 02/14/17 08:54 Influenza Type B (PCR) Negative (NEGATIVE) 02/14/17 08:54 Mycoplasma pneumon IgG Negative (NEGATIVE) 02/17/17 11:59 - Plan (1) Pneumonia Status: Acute Qualifiers: Pneumonia type: due to unspecified organism Aspiration pneumonia type: A Laterality: bilateral Lung location: lower lobe of lung Qualified Code(s): J18.9 - Pneumonia, unspecified organism Plan: START SMARTVEST, DECADRON AND MUCOMYST WITH XOPENEX, CONTINUE LEVAQUIN, ZOSYN, ROBITUSSIN, MONITOR LABS AND CHEST XRAY. (2) Sinus tachycardia Status: Acute Plan: START TOPROL XL 50MG DAILY, MONITOR. (3) Nausea & vomiting Status: Acute Qualifiers: Vomiting type: V Vomiting Intractability: V Plan: CONSULT GI, START PEPCID, CONTINUE IV FLUIDS, IV ZOFRAN, PROTONIX, MONITOR. (4) Poor appetite Status: Acute Plan: CONTINUE PERIPHERAL TPN, ALBUMIN, MEGACE, ENSURE, MONITOR INTAKE. (5) Dizziness Status: Acute Plan: CONTINUE TO MONITOR. (6) Generalized weakness Status: Acute Plan: CONTINUE PHYSICAL THERAPY, PERIPHERAL TPN, ENCOURAGE NUTRITION, MONITOR. (7) Herpes labialis Status: Acute Plan: START ACYCLOVIR OINTMENT TO LIPS, MONITOR. (8) Sinusitis Status: Acute Qualifiers: Sinusitis location: maxillary Chronicity: acute Recurrence: non- recurrent Qualified Code(s): J01.00 - Acute maxillary sinusitis, unspecified Plan: CONTINUE LEVAQUIN, ZOSYN, MONITOR. (9) Constipation by delayed colonic transit Status: Acute Plan: CONTINUE MILK OF MAGNESIA, MIRALAX, COLACE, MONITOR. (10) Hypoalbuminemia Status: Acute Plan: CONTINUE ALBUMIN, MONITOR. (11) Dehydration Status: Acute Plan: CONTINUE IV FLUIDS, MONITOR LABS. (12) Pulmonary contusion Status: Acute Qualifiers: Encounter type: initial encounter Laterality: right Qualified Code(s): S27.321A - Contusion of lung, unilateral, initial encounter Plan: CONTINUE TO MONITOR. (13) Right rib fracture Status: Acute Qualifiers: Encounter type: initial encounter Rib fracture type: multiple ribs Fracture type: closed Fracture healing: F Qualified Code(s): S22.41XA - Multiple fractures of ribs, right side, initial encounter for closed fracture Plan: PAIN MANAGMENT, MONITOR. (14) Dementia Status: Chronic Qualifiers: Dementia type: vascular dementia Alzheimer's disease onset: A Dementia behavioral disturbance: without behavioral disturbance Qualified Code(s): F01.50 - Vascular dementia without behavioral disturbance (15) Back pain Status: Chronic Qualifiers: Back pain location: low back pain Chronicity: chronic Back pain laterality: bilateral Sciatica presence: without sciatica Sciatica laterality: S Qualified Code(s): M54.5 - Low back pain; G89.29 - Other chronic pain (16) Arthritis Status: Chronic
--- NOTE | 2017-02-18 16:30 | CT ---
HISTORY: Abdominal pain, distention Study: CT abdomen and pelvis without contrast Comparison: None Technique: Multiple axial images of the abdomen and pelvis were obtained without IV contrast. Oral contrast wa s administered. Dose reduction techniques including Automated Exposure Control (AEC) and adjustment of mA and kV were utilized. Findings: The exam is limited by motion artifact and noncontrast technique. There is bibasilar atelectasis. No rmal-sized heart. The liver, spleen, pancreas, kidneys, and adrenal glands are unremarkable in thei r unenhanced CT appearance. The gallbladder is unremarkable. There is a single nonobstructing 4 mm r ight renal stone. No free intraperitoneal air. No evidence of intestinal obstruction or inflammation. Oral contrast re aches the transverse colon. The appendix is not visualized. No free fluid. There are a few sigmoid d iverticula seen without evidence of acute inflammation. There are degenerative changes of the lumbar spine at L2-L3 and L5-S1. The vascular structures are u nremarkable. No pathologically enlarged lymph nodes are identified. There is a Ugalde catheter seen i n the urinary bladder with intraluminal air present. IMPRESSION: 1. No acute abnormality identified. 2. Nonobstructing right renal stone. Reported By:
[2017-02-18] MEDS: PROZAC PO SCH (16:46)
[2017-02-18] MEDS: TOPROL XL PO SCH (16:47)
[2017-02-18] MEDS: MAGIC MOUTHWASH MT SCH ×5 (16:55→21:16)
[2017-02-18] MEDS ORDERED: ZYPREXA 2.5 MG ONE (20:48)
[2017-02-18] MEDS: SINGULAIR TAB 10 MG PO SCH (20:52)
[2017-02-18] MEDS: RESTORIL CAP 15 MG PO PRN (20:52)
[2017-02-18] MEDS: FLOMAX PO SCH (20:52)
[2017-02-18] MEDS: KLONOPIN TAB 0.5 MG PO SCH (20:52)
[2017-02-18] MEDS: ZOCOR TAB 40 MG PO SCH (20:52)
[2017-02-18] MEDS: MIRALAX POWDER (1 DOSE 17GM) PO SCH (20:54)
[2017-02-18] MEDS: SNACK - Diabetic Appropriate PO SCH (21:25)
[2017-02-18] MEDS: NS 500 ML IV 500 ML IV SCH (21:30)
[2017-02-19] MEDS: ZOVIRAX TOP SCH ×3 (02:25→20:25)
[2017-02-19] MEDS: CLINIMIX 4.25 %/10 % 1,000 ML with MVI INJ (ADULT) 10 ML, TRACE ELEMENTS INJ 10 ML, TPN... IV SCH ×18 (02:25→19:54)
[2017-02-19 05:30] LABS: ALANINE AMINOTRANSFERASE 28 Units/L (12-78); ALBUMIN 3.2 g/dL (3.4-5.0); ALKALINE PHOSPHATASE 76 Units/L (46-116); AMYLASE 58 Units/L (25-115); ASPARTATE AMINO TRANSFERASE 29 Units/L (15-37); BLOOD UREA NITROGEN 43 mg/dL (7-18); CALCIUM 8.9 mg/dL (8.5-10.1); CARBON DIOXIDE 19.8 mmol/L (21-32); CHLORIDE 106 mmol/L (98-107); COR CA(FOR HYPOALB) 9.5 mg/dL (8.5-10.1); COR NA(FOR HYPERGLY) 138 mmol/L (136-145); CREATININE 1.42 mg/dL (0.70-1.30); GLUCOSE 142 mg/dL (65-99); LIPASE 220 Units/L (73-393); SODIUM 137 mmol/L (136-145); TOTAL PROTEIN 6.6 g/dL (6.4-8.2); eGFR BLACK RACES > 60 (>60); eGFR NON BLACK RACES 51 (>60)
[2017-02-19 05:31] LABS: BASOPHILS % (AUTO) 0.3 % (0.2-1.0); EOSINOPHILS # (AUTO) 0.2 x10^3/uL (0.0-0.2); EOSINOPHILS % (AUTO) 2.8 % (0.9-2.9); HEMATOCRIT 28.7 % (42.0-54.0); HEMOGLOBIN 9.9 g/dL (13.5-18.0); LYMPHOCYTES # (AUTO) 0.6 X10^3/uL (1.3-2.9); LYMPHOCYTES % (AUTO) 7.5 % (21.0-51.0); MEAN CORPUSCULAR HEMOGLOBIN 30.4 pg (27.0-34.0); MEAN CORPUSCULAR HGB CONC 34.4 g/dL (33.0-35.0); MEAN CORPUSCULAR VOLUME 88.2 fL (80.0-100.0); MONOCYTES # (AUTO) 0.6 x10^3/uL (0.3-0.8); MONOCYTES % (AUTO) 6.9 % (0.0-13.0); NEUTROPHILS # (AUTO) 6.9 x10^3/uL (2.2-4.8); NEUTROPHILS % (AUTO) 82.5 % (42.0-75.0); PLATELET COUNT 376 X10^3/uL (150.0-450.0); RED BLOOD COUNT 3.25 X10^6/uL (4.7-6.0); RED CELL DISTRIBUTION WIDTH 15.8 % (11.6-16.5); WHITE BLOOD COUNT 8.3 X10^3/uL (3.6-10.0)
[2017-02-19] MEDS: ZOSYN VIAL 3.375 GM 3.375 GM in NS 100 ML IV + SPIKE MINIBAG* 100 ML IV SCH ×3 (05:38→21:53)
--- NOTE | 2017-02-19 08:47 | RAD ---
Examination: Chest x-ray. Clinical History: Fibula fracture, weakness, dehydration, cough and fever. Technique: A single portable AP view of the chest was obtained. Comparison: 02/18/2017. Findings: The chest is mildly rotated. The lungs are hypoventilated, precluding evaluation of the heart size. No pneumothorax is noted. Mildly increased interstitial markings are seen predominantly in the left lung, with patchy areas of confluent opacity present in the perihilar regions bilaterally and at the lung bases bilaterally, a symmetrically more prominent on the left side. Findings could be due to pulmonary edema and/or pneum onia. There is blunting of the left costophrenic angle suggestive of a tiny left-sided pleural effusion. The bones are diffusely osteopenic. There is a minor thoracic scoliosis seen convex to the right, wh ich may be positional in nature. Degenerative changes are noted in the spine. No acute osseous abnor mality is noted. Impression: 1. Hypoventilated lungs. 2. Mildly increased interstitial markings are seen predominantly in the left lung, with patchy areas of confluent opacity present in the perihilar regions bilaterally and at the lung bases bilaterally , asymmetrically more prominent on the left side. Findings could be due to pulmonary edema and/or pn eumonia. 3. There is blunting of the left costophrenic angle suggestive of a tiny left-sided pleural effusion . Reported By:
[2017-02-19] MEDS ORDERED: ALLEGRA ONE (09:28)
[2017-02-19] MEDS: PROTONIX INJ 40 MG VIAL IVP SCH (09:30)
[2017-02-19] MEDS: MUCOMYST 20% 200 MG/ML NEB SCH ×4 (09:39→21:01)
[2017-02-19] MEDS: LEVAQUIN PREMIX IV 750 MG 750 MG/150 ML BAG IV SCH (09:39)
[2017-02-19] MEDS: DECADRON JET NEB NEB SCH ×4 (09:39→21:01)
[2017-02-19] MEDS: XOPENEX 1.25 MG/3 ML NEB SCH ×4 (09:39→21:01)
[2017-02-19] MEDS: ALLEGRA PO SCH (09:42)
[2017-02-19] MEDS: FLONASE NASAL SPRAY ENOSTRIL SCH (09:43)
[2017-02-19] MEDS: COLACE CAP 100 MG PO SCH ×2 (09:43→19:59)
[2017-02-19] MEDS: ASPIRIN EC 81 MG PO SCH (09:43)
[2017-02-19] MEDS: MAGIC MOUTHWASH MT SCH ×4 (09:44→20:26)
[2017-02-19] MEDS: LOVENOX INJ 30 MG SYR SC SCH ×2 (09:44→20:00)
[2017-02-19] MEDS: PROZAC PO SCH (09:45)
[2017-02-19] MEDS: MEGACE PO SCH ×2 (09:46→19:59)
[2017-02-19] MEDS: NAMENDA TAB 10 MG PO SCH (09:47)
[2017-02-19] MEDS: ROBITUSSIN DM PO SCH ×4 (09:48→20:00)
[2017-02-19] MEDS: TOPROL XL PO SCH (09:48)
[2017-02-19] MEDS: ALBUMIN HUMAN 25%- 100ML 100 ML IV SCH (09:49)
[2017-02-19] MEDS: NYSTATIN POWDER TOP SCH ×2 (09:50→20:27)
[2017-02-19] MEDS: DIFLUCAN 200 MG IV PREMIX* 200 MG/100 ML BAG IV SCH (09:50)
[2017-02-19] MEDS: PEPCID 20 MG IV PREMIX* 20 MG/50 ML BAG IV SCH (09:52)
[2017-02-19] MEDS ORDERED: PHARMACY CONSULT - VANCOMYCIN XX SCH (11:00)
--- NOTE | 2017-02-19 14:47 | PCM.PROG ---
Progress Note - Progress Note for Day of Date: 02/19/17 - Subjective Subjective: FINAL SPUTUM CULTURE REPORTS MRSA. THE SOURCE OF FEVER HAS BEEN UNKNOWN UNTIL TODAY. PATIENT IS CURRENTLY ON ZOSYN AND LEVAQUIN, IN WHICH, LEVAQUIN IS RESISTANT TO MRSA. WE WILL DISCONTINUE LEVAQUIN AND CHANGE PATIENT TO VANCOMYCIN. PATIENT IS DROWSY THIS MORNING AND HAS EATEN SMALL BITES OF BREAKFAST. REPORTS PATIENT IS DRINKING ENSURE FAIRLY WELL NOW. PATIENT IS ON ENSURE TID. AND DAUGHTER AT BEDSIDE. HE IS ALSO BEING TREATED FOR ORAL CANDIDIASIS, WHICH COULD BE RELATED TO POOR APPETITE. HALLUCINATIONS AND AGITATION IS IMPROVED TODAY WITH ZYPREXA. ABDOMEN/PELVIS CT REPORTED NO ACUTE ABNORMALITY; NONOBSTRUCTING RENAL STONE. HE DENIES ABDOMINAL PAIN, SLIGHT DISTENTION IS NOTED. ON AUSCULTATION, LUNGS CONTINUE WITH SCATTERED WHEEZING AND RHONCHI THROUGHOUT. PHYSICAL THERAPY CONTINUES PATIENT ALLOWS AND TOLERATES. PATIENT HAS ELEVATED HEART RATE IS A LITTLE BETTER CONTROLLED AT 101 THIS MORNING. GI CONSULTED YESTERDAY AND PLANS FOR EGD IN AM. CBC WNL EXCEPT: H/H 9.9/28.7. CMP WNL EXCEPT: BUN/CREAT 43/1.42, GFR 51, GLUCOSE 142, ALBUMIN 3.2. CHEST XRAY REPORTS PATCHY AREAS OF CONFLUENT OPACITY PRESENT IN THE PERIHILAR REGIONS BILATERALLY AND AT THE LUNG BASES BILATERALLY. WE WILL DISCONTINUE LEVAQUIN AND START VANCOMYCIN. WE WILL CONTINUE ZOSYN, DIFLUCAN, MUCOMYST AND DECADRON WITH NEB TREATMENTS, FLUOXETINE, ZYPREXA, KLONOPIN, MEGACE , ENSURE, EFFEXOR, NEB TREATMENTS, PERIPHERAL TPN, AND ALBUMIN. WE WILL CONTINUE TO MONITOR AND FOLLOW UP IN AM WITH LABS AND CHEST XRAY. - Past Medical Family Social History Past Med/Fam/Surg Hx: No changes since H&P Allergies: Allergies Codeine Allergy (Verified 02/10/17 16:02) - Review of Systems ROS: No change since H&P - Vital Signs and I&O's Vital Signs: Temperature 98.9 F Pulse Rate [Apical] 101 Pulse Rate [Left Brachial] 103 Pulse Rate 107 Respiratory Rate 33 Blood Pressure [Right Arm] 109/68 Blood Pressure [Left Arm] 101/60 O2 Sat by Pulse Oximetry 99 Intake and Output: Intake & Output 02/17/17 02/18/17 02/19/17 02/20/17 11:59 11:59 11:59 11:59 Intake Total 6599 3611 2466 Output Total 924 6696 9837 Balance 2396 1226 502 - Physical Exam Oriented: Normal, Time, Person, Place Eyes: Normal. negative: Blurred Vision, Diplopia, Discharge, Pain, Redness, Photophobia Ear: Normal. negative: Swelling, Ecchymosis, Hemotypanum, Abrasion, Laceration Nose: Normal. negative: Injected, Discharge, Blood Throat: Normal. negative: Tonsillar Hypertrophy, Red, Exudate Respiratory: Generalized, Wheezes, Rhonchi Cardiovascular: Normal. negative: Murmur, Edema : Normal. negative: Dysuria, Hematuria, Frequency, Discharge, Testicular Pain Auscultation: Bowel Sounds: Decreased. negative: Bruit Palpation: Normal. negative: Spleen Enlarged, Liver Enlarged, Mass Pulsatile Tenderness: Normal, Other (Mild Distention). negative: Rebound, Guarding, Rigidity Skin: Decreased Turgur. negative: Diaphoresis, Wound, Bruising, Ecchymosis Musculoskeletal: Tender (Tenderness to Right Chest Wall), Instability Psychiatric: Other (Drowsy) Mood Description: Calm Affect: Normal Speech Pattern: Clear, Appropriate - Laboratory and Diagnostics Result Diagrams: 02/19/17 04:35 02/19/17 04:35 Labs: 02/16/17 03:19 Blood Blood Culture - Preliminary 02/17/17 09:16 Sputum - Expectorated Sputum Sputum Culture - Final Methicillin Resis Staph Aureus 02/17/17 09:16 Sputum - Expectorated Sputum - Final 02/14/17 09:55 Blood Blood Culture - Final 02/14/17 10:00 Blood Blood Culture - Final 02/16/17 03:06 Blood Blood Culture - Preliminary Laboratory WBC 8.3 X10^3/uL (3.6-10.0) 02/19/17 04:35 RBC 3.25 X10^6/uL (4.7-6.0) L 02/19/17 04:35 Hgb 9.9 g/dL (13.5-18.0) L 02/19/17 04:35 Hct 28.7 % (42.0-54.0) L 02/19/17 04:35 MCV 88.2 fL (80.0-100.0) 02/19/17 04:35 MCH 30.4 pg (27.0-34.0) 02/19/17 04:35 MCHC 34.4 g/dL (33.0-35.0) 02/19/17 04:35 RDW 15.8 % (11.6-16.5) 02/19/17 04:35 Plt Count 376 X10^3/uL (150.0-450.0) 02/19/17 04:35 Plt Count Comment Adequate (ADEQUATE) 02/18/17 05:00 MPV 8.0 fL (7.4-11.0) 02/19/17 04:35 Neut % 82.5 % (42.0-75.0) H 02/19/17 04:35 Lymph % 7.5 % (21.0-51.0) L 02/19/17 04:35 [place] % 6.9 % (0.0-13.0) 02/19/17 04:35 Eos % 2.8 % (0.9-2.9) 02/19/17 04:35 Baso % 0.3 % (0.2-1.0) 02/19/17 04:35 Neut # 6.9 x10^3/uL (2.2-4.8) H 02/19/17 04:35 Lymph # 0.6 X10^3/uL (1.3-2.9) L 02/19/17 04:35 [place] # 0.6 x10^3/uL (0.3-0.8) 02/19/17 04:35 Eos # 0.2 x10^3/uL (0.0-0.2) 02/19/17 04:35 Baso # 0.0 X10^3/uL (0.0-0.1) 02/19/17 04:35 Absolute Nucleated RBC 0.0 /100WBC 02/19/17 04:35 Total Counted 100 02/11/17 05:40 Neutrophils % (Manual) 86 % (39-76) H 02/11/17 05:40 Lymphocytes % (Manual) 10 % (13-43) L 02/11/17 05:40 Monocytes % (Manual) 2 % (4-9) L 02/11/17 05:40 Eosinophils % (Manual) 2 % (0-6) 02/11/17 05:40 Plt Clumps, EDTA Rare 02/18/17 05:00 Plt Morphology Comment Normal (NORMAL) 02/18/17 05:00 RBC Morphology Normal (NORMAL) 02/18/17 05:00 Sodium 137 mmol/L (136-145) 02/19/17 04:35 Corrected Sodium 138 mmol/L (136-145) 02/19/17 04:35 Potassium 4.4 mmol/L (3.5-5.1) 02/19/17 04:35 Chloride 106 mmol/L (98-107) 02/19/17 04:35 Carbon Dioxide 19.8 mmol/L (21-32) L 02/19/17 04:35 BUN 43 mg/dL (7-18) H 02/19/17 04:35 Creatinine 1.42 mg/dL (0.70-1.30) H 02/19/17 04:35 Est GFR (MDRD) Af Amer > 60 (>60) 02/19/17 04:35 Est GFR (MDRD) Non-Af 51 (>60) L 02/19/17 04:35 Glucose 142 mg/dL (65-99) H 02/19/17 04:35 Calcium 8.9 mg/dL (8.5-10.1) 02/19/17 04:35 Corrected Calcium 9.5 mg/dL (8.5-10.1) 02/19/17 04:35 Total Bilirubin 0.40 mg/dL (0.2-1.0) 02/19/17 04:35 AST 29 Units/L (15-37) 02/19/17 04:35 ALT 28 Units/L (12-78) 02/19/17 04:35 Alkaline Phosphatase 76 Units/L (46-116) 02/19/17 04:35 Creatine Kinase 38 Units/L (39-308) L 02/11/17 05:40 CK-MB (CK-2) 1.0 ng/mL (0-4.0) 02/11/17 05:40 CK/CKMB % Calc 2.6 % (<4) 02/11/17 05:40 Troponin I < 0.02 ng/mL (0-1.5) 02/11/17 05:40 B-Natriuretic Peptide 20.7 pg/mL (0-79) 02/10/17 17:10 Total Protein 6.6 g/dL (6.4-8.2) 02/19/17 04:35 Albumin 3.2 g/dL (3.4-5.0) L 02/19/17 04:35 Globulin 3.4 g/dL (2.5-4.5) 02/19/17 04:35 Albumin/Globulin Ratio 0.9 Ratio (1.1-2.1) L 02/19/17 04:35 Amylase 58 Units/L (25-115) 02/19/17 04:35 Lipase 220 Units/L (73-393) 02/19/17 04:35 Total PSA 1.35 ng/mL (0.13-4.0) 02/17/17 05:37 Specimen Type Catherized urine 02/18/17 10:11 Urine Color Yellow (YELLOW) 02/18/17 10:11 Urine Appearance Slightly hazy (CLEAR) 02/18/17 10:11 Urine pH 5.0 (5.0 - 8.0) 02/18/17 10:11 Ur Specific [place] 1.015 (1.000-1.030) 02/18/17 10:11 Urine Protein 2+ (NEGATIVE) 02/18/17 10:11 Urine Glucose (UA) Negative (NEGATIVE) 02/18/17 10:11 Urine Ketones Negative (NEGATIVE) 02/18/17 10:11 Urine Occult Blood 2+ (NEGATIVE) 02/18/17 10:11 Urine Nitrite Negative (NEGATIVE) 02/18/17 10:11 Urine Bilirubin Negative (NEGATIVE) 02/18/17 10:11 Urine Urobilinogen Normal (NORMAL) 02/18/17 10:11 Ur Leukocyte Esterase Negative (NEGATIVE) 02/18/17 10:11 Urine RBC 0-3 /HPF (NEGATIVE) 02/18/17 10:11 Urine WBC 2-5 /HPF (NEGATIVE) 02/18/17 10:11 Ur Squamous Epith Cells Rare /HPF (NEGATIVE) 02/18/17 10:11 Ur Renal Epithelial Cell Rare /HPF (NEGATIVE) 02/18/17 10:11 Amorphous Sediment Trace /HPF (NEGATIVE) 02/18/17 10:11 Urine Bacteria Negative /HPF (NEGATIVE) 02/18/17 10:11 Ur Culture Indicated? No/not indicated 02/18/17 10:11 Influenza A (H1N1) PCR Not detected (NOT DETECT) 02/14/17 08:54 Influenza Type A (PCR) Negative (NEGATIVE) 02/14/17 08:54 Influenza Type B (PCR) Negative (NEGATIVE) 02/14/17 08:54 Mycoplasma pneumon IgG Negative (NEGATIVE) 02/17/17 11:59 - Plan (1) Pneumonia Status: Acute Qualifiers: Pneumonia type: due to methicillin-resistant Staphylococcus aureus (MRSA) Aspiration pneumonia type: A Laterality: bilateral Lung location: lower lobe of lung Qualified Code(s): J15.212 - Pneumonia due to Methicillin resistant Staphylococcus aureus Plan: DISCONTINUE LEVAQUIN, START VANCOMYCIN, CONTINUE DECADRON AND MUCOMYST WITH XOPENEX, CONTINUE ZOSYN, ROBITUSSIN, MONITOR LABS AND CHEST XRAY. (2) Sinus tachycardia Status: Acute Plan: CONTINUE TOPROL XL 50MG DAILY, MONITOR. (3) Oral candidiasis Status: Acute Plan: CONTINUE DIFLUCAN, MAGIC MOUTHWASH, MONITOR. (4) Nausea & vomiting Status: Acute Qualifiers: Vomiting type: cyclical vomiting Vomiting Intractability: non-intractable Qualified Code(s): G43.A0 - Cyclical vomiting, not intractable Plan: EGD IN AM, HOLD NPO AFTER MIDNIGHT, CONITNUE PEPCID, IV FLUIDS, IV ZOFRAN , PROTONIX, MONITOR. (5) Poor appetite Status: Acute Plan: CONTINUE PERIPHERAL TPN, ALBUMIN, MEGACE, ENSURE, MONITOR INTAKE. (6) Dizziness Status: Acute Plan: CONTINUE TO MONITOR. (7) Generalized weakness Status: Acute Plan: CONTINUE PHYSICAL THERAPY, PERIPHERAL TPN, ENCOURAGE NUTRITION, MONITOR. (8) Herpes labialis Status: Acute Plan: CONTINUE ACYCLOVIR OINTMENT TO LIPS, MONITOR. (9) Sinusitis Status: Acute Qualifiers: Sinusitis location: maxillary Chronicity: acute Recurrence: non- recurrent Qualified Code(s): J01.00 - Acute maxillary sinusitis, unspecified Plan: CONTINUE LEVAQUIN, ZOSYN, MONITOR. (10) Constipation by delayed colonic transit Status: Acute Plan: CONTINUE MILK OF MAGNESIA, MIRALAX, COLACE, MONITOR. (11) Hypoalbuminemia Status: Acute Plan: CONTINUE ALBUMIN, MONITOR. (12) Dehydration Status: Acute Plan: CONTINUE IV FLUIDS, MONITOR LABS. (13) Pulmonary contusion Status: Acute Qualifiers: Encounter type: initial encounter Laterality: right Qualified Code(s): S27.321A - Contusion of lung, unilateral, initial encounter Plan: CONTINUE TO MONITOR. (14) Right rib fracture Status: Acute Qualifiers: Encounter type: initial encounter Rib fracture type: multiple ribs Fracture type: closed Fracture healing: F Qualified Code(s): S22.41XA - Multiple fractures of ribs, right side, initial encounter for closed fracture Plan: PAIN MANAGMENT, MONITOR. (15) Dementia Status: Chronic Qualifiers: Dementia type: vascular dementia Alzheimer's disease onset: A Dementia behavioral disturbance: without behavioral disturbance Qualified Code(s): F01.50 - Vascular dementia without behavioral disturbance (16) Back pain Status: Chronic Qualifiers: Back pain location: low back pain Chronicity: chronic Back pain laterality: bilateral Sciatica presence: without sciatica Sciatica laterality: S Qualified Code(s): M54.5 - Low back pain; G89.29 - Other chronic pain (17) Arthritis Status: Chronic
[2017-02-19] MEDS: VANCOMYCIN HCL 500 MG VIAL 750 MG in NS 250 ML IV 250 ML IV SCH (15:43)
[2017-02-19] MEDS: PHENOBARBITAL SODIUM INJ 65 MG VIAL IM PRN (19:58)
[2017-02-19] MEDS: TYLENOL 325 MG TAB PO PRN (19:59)
[2017-02-19] MEDS: FLOMAX PO SCH (19:59)
[2017-02-19] MEDS: KLONOPIN TAB 0.5 MG PO SCH (19:59)
[2017-02-19] MEDS: SINGULAIR TAB 10 MG PO SCH (19:59)
[2017-02-19] MEDS: ZOCOR TAB 40 MG PO SCH (19:59)
[2017-02-19] MEDS: RESTORIL CAP 15 MG PO PRN (19:59)
[2017-02-19] MEDS: SNACK - Diabetic Appropriate PO SCH ×2 (20:00→20:25)
[2017-02-19] MEDS ORDERED: ZYPREXA 2.5 MG ONE (20:02)
[2017-02-19] MEDS: MIRALAX POWDER (1 DOSE 17GM) PO SCH (20:03)
[2017-02-19] MEDS: ZYPREXA 2.5 MG PO SCH (20:03)
[2017-02-19] MEDS: NS 500 ML IV 500 ML IV SCH (20:26)
[2017-02-20] MEDS: ZOVIRAX TOP SCH ×3 (01:33→17:59)
[2017-02-20] MEDS: CLINIMIX 4.25 %/10 % 1,000 ML with MVI INJ (ADULT) 10 ML, TRACE ELEMENTS INJ 10 ML, TPN... IV SCH ×12 (05:20→17:57)
[2017-02-20] MEDS: ZOSYN VIAL 3.375 GM 3.375 GM in NS 100 ML IV + SPIKE MINIBAG* 100 ML IV SCH ×3 (05:20→21:56)
[2017-02-20 05:23] LABS: BASOPHILS % (AUTO) 0.3 % (0.2-1.0); EOSINOPHILS # (AUTO) 0.2 x10^3/uL (0.0-0.2); EOSINOPHILS % (AUTO) 2.3 % (0.9-2.9); HEMATOCRIT 30.5 % (42.0-54.0); HEMOGLOBIN 10.3 g/dL (13.5-18.0); LYMPHOCYTES % (AUTO) 9.8 % (21.0-51.0); MEAN CORPUSCULAR HEMOGLOBIN 29.9 pg (27.0-34.0); MEAN CORPUSCULAR HGB CONC 33.9 g/dL (33.0-35.0); MEAN CORPUSCULAR VOLUME 88.2 fL (80.0-100.0); MONOCYTES % (AUTO) 9.3 % (0.0-13.0); NEUTROPHILS % (AUTO) 78.3 % (42.0-75.0); PLATELET COUNT 432 X10^3/uL (150.0-450.0); RED BLOOD COUNT 3.46 X10^6/uL (4.7-6.0); RED CELL DISTRIBUTION WIDTH 16.6 % (11.6-16.5); WHITE BLOOD COUNT 10.2 X10^3/uL (3.6-10.0)
[2017-02-20 05:36] LABS: ALANINE AMINOTRANSFERASE 28 Units/L (12-78); ALBUMIN 3.5 g/dL (3.4-5.0); ALKALINE PHOSPHATASE 75 Units/L (46-116); AMYLASE 66 Units/L (25-115); ASPARTATE AMINO TRANSFERASE 28 Units/L (15-37); BLOOD UREA NITROGEN 47 mg/dL (7-18); CALCIUM 8.9 mg/dL (8.5-10.1); CARBON DIOXIDE 19.7 mmol/L (21-32); CHLORIDE 108 mmol/L (98-107); COR NA(FOR HYPERGLY) 142 mmol/L (136-145); GLUCOSE 130 mg/dL (65-99); LIPASE 229 Units/L (73-393); SODIUM 141 mmol/L (136-145); eGFR BLACK RACES > 60 (>60); eGFR NON BLACK RACES 51 (>60)
[2017-02-20 06:26] LABS: BAND NEUTROPHILS % 2 % (0-10)
[2017-02-20 06:27] LABS: PLATELET MORPHOLOGY COMMENT NORMAL (NORMAL)
--- NOTE | 2017-02-20 07:15 | RAD ---
HISTORY: Fever, dehydration, weakness Study: Chest one view Comparison: February 19, 2017 Findings: The heart is within normal limits in size. The warren are normal. The previously noted left perihilar infiltrates are no longer identified. The lungs appear free of acute alveolar infiltrates. Mild inte rstitial lung changes are present. No pleural effusions are identified. IMPRESSION: Mild interstitial lung changes stable when compared with the prior examination. The previously noted left perihilar infiltrates appear to have resolved. Reported By:
[2017-02-20] MEDS: VANCOMYCIN HCL 500 MG VIAL 750 MG in NS 250 ML IV 250 ML IV SCH (08:48)
[2017-02-20] MEDS: PROTONIX INJ 40 MG VIAL IVP SCH ×2 (08:48→21:56)
[2017-02-20] MEDS: ALBUMIN HUMAN 25%- 100ML 100 ML IV SCH (08:49)
[2017-02-20] MEDS: PEPCID 20 MG IV PREMIX* 20 MG/50 ML BAG IV SCH (08:49)
[2017-02-20] MEDS: DIFLUCAN 200 MG IV PREMIX* 200 MG/100 ML BAG IV SCH (09:02)
[2017-02-20] MEDS: DECADRON JET NEB NEB SCH ×4 (10:10→20:28)
[2017-02-20] MEDS: XOPENEX 1.25 MG/3 ML NEB SCH ×4 (10:11→20:28)
[2017-02-20] MEDS: MUCOMYST 20% 200 MG/ML NEB SCH ×4 (10:11→20:27)
[2017-02-20] MEDS ORDERED: NS 1000 ML 1,000 ML ONE (12:24)
[2017-02-20] MEDS ORDERED: DIPRIVAN VIAL 20 ML ONE (12:40)
[2017-02-20] MEDS: NS 500 ML IV 500 ML IV SCH (12:55)
[2017-02-20] MEDS: ROBITUSSIN DM PO SCH ×4 (12:56→21:52)
[2017-02-20] MEDS: NYSTATIN POWDER TOP SCH ×2 (12:56→21:56)
[2017-02-20] MEDS: ALLEGRA PO SCH (14:40)
[2017-02-20] MEDS: FLONASE NASAL SPRAY ENOSTRIL SCH (14:41)
[2017-02-20] MEDS: ASPIRIN EC 81 MG PO SCH (14:41)
[2017-02-20] MEDS: COLACE CAP 100 MG PO SCH ×2 (14:41→21:53)
[2017-02-20] MEDS: MAGIC MOUTHWASH MT SCH ×4 (14:42→21:55)
[2017-02-20] MEDS: LOVENOX INJ 30 MG SYR SC SCH ×2 (14:42→21:53)
[2017-02-20] MEDS: MEGACE PO SCH ×2 (14:43→21:53)
[2017-02-20] MEDS: TOPROL XL PO SCH (14:44)
[2017-02-20] MEDS: NAMENDA TAB 10 MG PO SCH (14:45)
[2017-02-20] MEDS: PROZAC PO SCH (14:45)
--- NOTE | 2017-02-20 17:27 | PCM.PROG ---
Progress Note - Progress Note for Day of Date: 02/20/17 - Subjective Subjective: PATIENT CONTINUES ON TREATMENT FOR MRSA PNEUMONIA. HE IS NOTED WITH CONFUSION THIS MORNING. AND DAUGHTER AT BEDSIDE AND REPORTS PATIENT WAS AGITATED MOST OF THE NIGHT AND DID NOT REST WELL. HE IS DROWSY THIS MORNING. PATIENT RECEIVED PHENOBARBITAL IM LAST NIGHT DUE TO AGITATION AND BEING UNCOOPERATIVE WITH TREATMENT. PATIENT CONTINUES TREATMENT FOR ORAL CANDIDIASIS. PATIENT IS CURRENTLY NPO FOR EGD TODAY PER DR. GRAVES. ON AUSCULTATION, LUNGS NOTED WITH SCATTERED WHEEZING THROUGHOUT. CBC WNL EXCEPT: WBC 10.2, H/H 10.3/30.5. CMP WNL EXCEPT: CHL 108, BUN/CREAT 47/1.40, GFR 51, GLUCOSE 130. CHEST XRAY REPORTS MILD INTERSTITIAL LUNG CHANGES STABLE. WE WILL CONTINUE VANCOMYCIN, ZOSYN, DIFLUCAN, MUCOMYST AND DECADRON WITH NEB TREATMENTS, FLUOXETINE, ZYPREXA, KLONOPIN, MEGACE, ENSURE, EFFEXOR, NEB TREATMENTS, PERIPHERAL TPN, AND ALBUMIN. WE WILL CONTINUE TO MONITOR AND FOLLOW UP IN AM WITH LABS AND CHEST XRAY. - Past Medical Family Social History Past Med/Fam/Surg Hx: No changes since H&P Allergies: Allergies Codeine Allergy (Verified 02/10/17 16:02) - Review of Systems ROS: No change since H&P - Vital Signs and I&O's Vital Signs: Temperature 98.9 F Pulse Rate [Apical] 107 Pulse Rate [Left Brachial] 103 Pulse Rate 111 Respiratory Rate 29 Blood Pressure [Right Arm] 148/89 Blood Pressure [Left Arm] 101/60 O2 Sat by Pulse Oximetry 98 Intake and Output: Intake & Output 02/18/17 02/19/17 02/20/17 02/21/17 11:59 11:59 11:59 11:59 Intake Total 3611 4602 3724 1435 Output Total 1565 3650 3150 1100 Balance 2046 952 574 335 - Physical Exam Oriented: Normal, Time, Person, Place Eyes: Normal. negative: Blurred Vision, Diplopia, Discharge, Pain, Redness, Photophobia Ear: Normal. negative: Swelling, Ecchymosis, Hemotypanum, Abrasion, Laceration Nose: Normal. negative: Injected, Discharge, Blood Throat: Normal. negative: Tonsillar Hypertrophy, Red, Exudate Respiratory: Generalized, Wheezes Cardiovascular: Normal. negative: Murmur, Edema : Normal. negative: Dysuria, Hematuria, Frequency, Discharge, Testicular Pain Auscultation: Bowel Sounds: Decreased. negative: Bruit Palpation: Normal. negative: Spleen Enlarged, Liver Enlarged, Mass Pulsatile Tenderness: Normal. negative: Rebound, Guarding, Rigidity Skin: Decreased Turgur. negative: Diaphoresis, Wound, Bruising, Ecchymosis Musculoskeletal: Tender (Tenderness to Right Chest Wall), Instability Psychiatric: Other (Drowsy, Confusion) Mood Description: Calm Affect: Normal Speech Pattern: Inappropriate - Laboratory and Diagnostics Result Diagrams: 02/20/17 04:50 02/20/17 04:50 Labs: 02/16/17 03:19 Blood Blood Culture - Preliminary 02/17/17 09:16 Sputum - Expectorated Sputum Sputum Culture - Final Methicillin Resis Staph Aureus 02/17/17 09:16 Sputum - Expectorated Sputum - Final 02/14/17 09:55 Blood Blood Culture - Final 02/14/17 10:00 Blood Blood Culture - Final 02/16/17 03:06 Blood Blood Culture - Preliminary Laboratory WBC 10.2 X10^3/uL (3.6-10.0) H 02/20/17 04:50 RBC 3.46 X10^6/uL (4.7-6.0) L 02/20/17 04:50 Hgb 10.3 g/dL (13.5-18.0) L 02/20/17 04:50 Hct 30.5 % (42.0-54.0) L 02/20/17 04:50 MCV 88.2 fL (80.0-100.0) 02/20/17 04:50 MCH 29.9 pg (27.0-34.0) 02/20/17 04:50 MCHC 33.9 g/dL (33.0-35.0) 02/20/17 04:50 RDW 16.6 % (11.6-16.5) H 02/20/17 04:50 Plt Count 432 X10^3/uL (150.0-450.0) 02/20/17 04:50 Plt Count Comment Adequate (ADEQUATE) 02/20/17 04:50 MPV 8.0 fL (7.4-11.0) 02/20/17 04:50 Neut % 78.3 % (42.0-75.0) H 02/20/17 04:50 Lymph % 9.8 % (21.0-51.0) L 02/20/17 04:50 [place] % 9.3 % (0.0-13.0) 02/20/17 04:50 Eos % 2.3 % (0.9-2.9) 02/20/17 04:50 Baso % 0.3 % (0.2-1.0) 02/20/17 04:50 Neut # 8.0 x10^3/uL (2.2-4.8) H 02/20/17 04:50 Lymph # 1.0 X10^3/uL (1.3-2.9) L 02/20/17 04:50 [place] # 1.0 x10^3/uL (0.3-0.8) H 02/20/17 04:50 Eos # 0.2 x10^3/uL (0.0-0.2) 02/20/17 04:50 Baso # 0.0 X10^3/uL (0.0-0.1) 02/20/17 04:50 Absolute Nucleated RBC 0.0 /100WBC 02/20/17 04:50 Total Counted 100 02/20/17 04:50 Neutrophils % (Manual) 82 % (39-76) H 02/20/17 04:50 Band Neutrophils % 2 % (0-10) 02/20/17 04:50 Lymphocytes % (Manual) 9 % (13-43) L 02/20/17 04:50 Monocytes % (Manual) 5 % (4-9) 02/20/17 04:50 Eosinophils % (Manual) 2 % (0-6) 02/20/17 04:50 Plt Clumps, EDTA Rare 02/18/17 05:00 Plt Morphology Comment Normal (NORMAL) 02/20/17 04:50 RBC Morphology Normal (NORMAL) 02/20/17 04:50 Sodium 141 mmol/L (136-145) 02/20/17 04:50 Corrected Sodium 142 mmol/L (136-145) 02/20/17 04:50 Potassium 4.6 mmol/L (3.5-5.1) 02/20/17 04:50 Chloride 108 mmol/L (98-107) H 02/20/17 04:50 Carbon Dioxide 19.7 mmol/L (21-32) L 02/20/17 04:50 BUN 47 mg/dL (7-18) H 02/20/17 04:50 Creatinine 1.40 mg/dL (0.70-1.30) H 02/20/17 04:50 Est GFR (MDRD) Af Amer > 60 (>60) 02/20/17 04:50 Est GFR (MDRD) Non-Af 51 (>60) L 02/20/17 04:50 Glucose 130 mg/dL (65-99) H 02/20/17 04:50 Calcium 8.9 mg/dL (8.5-10.1) 02/20/17 04:50 Corrected Calcium TNP 02/20/17 04:50 Total Bilirubin 0.40 mg/dL (0.2-1.0) 02/20/17 04:50 AST 28 Units/L (15-37) 02/20/17 04:50 ALT 28 Units/L (12-78) 02/20/17 04:50 Alkaline Phosphatase 75 Units/L (46-116) 02/20/17 04:50 Creatine Kinase 38 Units/L (39-308) L 02/11/17 05:40 CK-MB (CK-2) 1.0 ng/mL (0-4.0) 02/11/17 05:40 CK/CKMB % Calc 2.6 % (<4) 02/11/17 05:40 Troponin I < 0.02 ng/mL (0-1.5) 02/11/17 05:40 B-Natriuretic Peptide 20.7 pg/mL (0-79) 02/10/17 17:10 Total Protein 7.0 g/dL (6.4-8.2) 02/20/17 04:50 Albumin 3.5 g/dL (3.4-5.0) 02/20/17 04:50 Globulin 3.5 g/dL (2.5-4.5) 02/20/17 04:50 Albumin/Globulin Ratio 1.0 Ratio (1.1-2.1) L 02/20/17 04:50 Amylase 66 Units/L (25-115) 02/20/17 04:50 Lipase 229 Units/L (73-393) 02/20/17 04:50 Total PSA 1.35 ng/mL (0.13-4.0) 02/17/17 05:37 Specimen Type Catherized urine 02/18/17 10:11 Urine Color Yellow (YELLOW) 02/18/17 10:11 Urine Appearance Slightly hazy (CLEAR) 02/18/17 10:11 Urine pH 5.0 (5.0 - 8.0) 02/18/17 10:11 Ur Specific [place] 1.015 (1.000-1.030) 02/18/17 10:11 Urine Protein 2+ (NEGATIVE) 02/18/17 10:11 Urine Glucose (UA) Negative (NEGATIVE) 02/18/17 10:11 Urine Ketones Negative (NEGATIVE) 02/18/17 10:11 Urine Occult Blood 2+ (NEGATIVE) 02/18/17 10:11 Urine Nitrite Negative (NEGATIVE) 02/18/17 10:11 Urine Bilirubin Negative (NEGATIVE) 02/18/17 10:11 Urine Urobilinogen Normal (NORMAL) 02/18/17 10:11 Ur Leukocyte Esterase Negative (NEGATIVE) 02/18/17 10:11 Urine RBC 0-3 /HPF (NEGATIVE) 02/18/17 10:11 Urine WBC 2-5 /HPF (NEGATIVE) 02/18/17 10:11 Ur Squamous Epith Cells Rare /HPF (NEGATIVE) 02/18/17 10:11 Ur Renal Epithelial Cell Rare /HPF (NEGATIVE) 02/18/17 10:11 Amorphous Sediment Trace /HPF (NEGATIVE) 02/18/17 10:11 Urine Bacteria Negative /HPF (NEGATIVE) 02/18/17 10:11 Ur Culture Indicated? No/not indicated 02/18/17 10:11 Influenza A (H1N1) PCR Not detected (NOT DETECT) 02/14/17 08:54 Influenza Type A (PCR) Negative (NEGATIVE) 02/14/17 08:54 Influenza Type B (PCR) Negative (NEGATIVE) 02/14/17 08:54 Mycoplasma pneumon IgG Negative (NEGATIVE) 02/17/17 11:59 Tissue Pathology To follow 02/20/17 13:01 - Plan (1) Pneumonia Status: Acute Qualifiers: Pneumonia type: due to methicillin-resistant Staphylococcus aureus (MRSA) Aspiration pneumonia type: A Laterality: bilateral Lung location: lower lobe of lung Qualified Code(s): J15.212 - Pneumonia due to Methicillin resistant Staphylococcus aureus Plan: CONTINUE VANCOMYCIN, DECADRON AND MUCOMYST WITH XOPENEX, ZOSYN, ROBITUSSIN , MONITOR LABS AND CHEST XRAY. (2) Sinus tachycardia Status: Acute Plan: CONTINUE TOPROL XL 50MG DAILY, MONITOR. (3) Oral candidiasis Status: Acute Plan: CONTINUE DIFLUCAN, MAGIC MOUTHWASH, MONITOR. (4) Nausea & vomiting Status: Acute Qualifiers: Vomiting type: cyclical vomiting Vomiting Intractability: non-intractable Qualified Code(s): G43.A0 - Cyclical vomiting, not intractable Plan: EGD TODAY, CONITNUE PEPCID, IV FLUIDS, IV ZOFRAN, PROTONIX, MONITOR. (5) Poor appetite Status: Acute Plan: CONTINUE PERIPHERAL TPN, ALBUMIN, MEGACE, ENSURE, MONITOR INTAKE. (6) Dizziness Status: Acute Plan: CONTINUE TO MONITOR. (7) Generalized weakness Status: Acute Plan: CONTINUE PHYSICAL THERAPY, PERIPHERAL TPN, ENCOURAGE NUTRITION, MONITOR. (8) Herpes labialis Status: Acute Plan: CONTINUE ACYCLOVIR OINTMENT TO LIPS, MONITOR. (9) Sinusitis Status: Acute Qualifiers: Sinusitis location: maxillary Chronicity: acute Recurrence: non- recurrent Qualified Code(s): J01.00 - Acute maxillary sinusitis, unspecified Plan: CONTINUE ZOSYN, MONITOR. (10) Constipation by delayed colonic transit Status: Acute Plan: CONTINUE MILK OF MAGNESIA, MIRALAX, COLACE, MONITOR. (11) Hypoalbuminemia Status: Acute Plan: CONTINUE ALBUMIN, MONITOR. (12) Dehydration Status: Acute Plan: CONTINUE IV FLUIDS, MONITOR LABS. (13) Pulmonary contusion Status: Acute Qualifiers: Encounter type: initial encounter Laterality: right Qualified Code(s): S27.321A - Contusion of lung, unilateral, initial encounter Plan: CONTINUE TO MONITOR. (14) Right rib fracture Status: Acute Qualifiers: Encounter type: initial encounter Rib fracture type: multiple ribs Fracture type: closed Fracture healing: F Qualified Code(s): S22.41XA - Multiple fractures of ribs, right side, initial encounter for closed fracture Plan: PAIN MANAGMENT, MONITOR. (15) Dementia Status: Chronic Qualifiers: Dementia type: vascular dementia Alzheimer's disease onset: A Dementia behavioral disturbance: without behavioral disturbance Qualified Code(s): F01.50 - Vascular dementia without behavioral disturbance (16) Back pain Status: Chronic Qualifiers: Back pain location: low back pain Chronicity: chronic Back pain laterality: bilateral Sciatica presence: without sciatica Sciatica laterality: S Qualified Code(s): M54.5 - Low back pain; G89.29 - Other chronic pain (17) Arthritis Status: Chronic
[2017-02-20] MEDS: MIRALAX POWDER (1 DOSE 17GM) PO SCH (21:52)
[2017-02-20] MEDS: ZOCOR TAB 40 MG PO SCH (21:52)
[2017-02-20] MEDS: KLONOPIN TAB 0.5 MG PO SCH (21:53)
[2017-02-20] MEDS: SINGULAIR TAB 10 MG PO SCH (21:53)
[2017-02-20] MEDS: FLOMAX PO SCH (21:53)
[2017-02-20] MEDS ORDERED: ZYPREXA 2.5 MG ONE (22:00)
[2017-02-20] MEDS: ZYPREXA 2.5 MG PO SCH (22:04)
[2017-02-20] MEDS: PHENOBARBITAL SODIUM INJ 65 MG VIAL IM PRN (22:22)
[2017-02-21] MEDS: ZOVIRAX TOP SCH ×3 (01:23→17:06)
[2017-02-21] MEDS: CLINIMIX 4.25 %/10 % 1,000 ML with MVI INJ (ADULT) 10 ML, TRACE ELEMENTS INJ 10 ML, TPN... IV SCH ×12 (04:21→16:43)
[2017-02-21 06:08] LABS: BASOPHILS % (AUTO) 0.5 % (0.2-1.0); EOSINOPHILS # (AUTO) 0.1 x10^3/uL (0.0-0.2); EOSINOPHILS % (AUTO) 0.9 % (0.9-2.9); HEMATOCRIT 33.4 % (42.0-54.0); HEMOGLOBIN 11.3 g/dL (13.5-18.0); LYMPHOCYTES # (AUTO) 0.9 X10^3/uL (1.3-2.9); MEAN CORPUSCULAR HEMOGLOBIN 29.9 pg (27.0-34.0); MEAN CORPUSCULAR HGB CONC 33.8 g/dL (33.0-35.0); MEAN CORPUSCULAR VOLUME 88.6 fL (80.0-100.0); MEAN PLATELET VOLUME 8.3 fL (7.4-11.0); MONOCYTES # (AUTO) 0.9 x10^3/uL (0.3-0.8); MONOCYTES % (AUTO) 8.9 % (0.0-13.0); NEUTROPHILS # (AUTO) 7.7 x10^3/uL (2.2-4.8); NEUTROPHILS % (AUTO) 80.7 % (42.0-75.0); PLATELET COUNT 448 X10^3/uL (150.0-450.0); RED BLOOD COUNT 3.77 X10^6/uL (4.7-6.0); RED CELL DISTRIBUTION WIDTH 16.4 % (11.6-16.5); WHITE BLOOD COUNT 9.6 X10^3/uL (3.6-10.0)
[2017-02-21 06:12] LABS: ALANINE AMINOTRANSFERASE 29 Units/L (12-78); ALBUMIN 3.7 g/dL (3.4-5.0); ALKALINE PHOSPHATASE 80 Units/L (46-116); AMYLASE 84 Units/L (25-115); ASPARTATE AMINO TRANSFERASE 32 Units/L (15-37); BLOOD UREA NITROGEN 45 mg/dL (7-18); CALCIUM 9.1 mg/dL (8.5-10.1); CARBON DIOXIDE 17.8 mmol/L (21-32); CHLORIDE 107 mmol/L (98-107); COR NA(FOR HYPERGLY) 141 mmol/L (136-145); CREATININE 1.26 mg/dL (0.70-1.30); GLUCOSE 156 mg/dL (65-99); LIPASE 309 Units/L (73-393); SODIUM 140 mmol/L (136-145); TOTAL PROTEIN 7.3 g/dL (6.4-8.2); eGFR BLACK RACES > 60 (>60); eGFR NON BLACK RACES 58 (>60)
--- NOTE | 2017-02-21 06:49 | RAD ---
HISTORY: Fever, dehydration, weakness Study: Chest one view Comparison: February 20, 2017 Findings: the heart is within normal limits in size. The warren are normal. The lungs are free of acute alveola r infiltrates. Mild interstitial lung changes remain. No definite pleural effusions are identified. The bony thorax is unremarkable. IMPRESSION: No significant change from the prior examination Reported By:
[2017-02-21 06:50] LABS: BAND NEUTROPHILS % 4 % (0-10); PLATELET MORPHOLOGY COMMENT NORMAL (NORMAL)
[2017-02-21] MEDS: ZOSYN VIAL 3.375 GM 3.375 GM in NS 100 ML IV + SPIKE MINIBAG* 100 ML IV SCH ×3 (07:55→21:49)
[2017-02-21] MEDS: XOPENEX 1.25 MG/3 ML NEB SCH ×4 (08:27→20:37)
[2017-02-21] MEDS: DECADRON JET NEB NEB SCH ×4 (08:27→20:37)
[2017-02-21] MEDS: MUCOMYST 20% 200 MG/ML NEB SCH ×3 (08:27→16:48)
[2017-02-21] MEDS ORDERED: ALLEGRA ONE (08:40)
[2017-02-21] MEDS: LOVENOX INJ 30 MG SYR SC SCH ×2 (10:14→20:45)
[2017-02-21] MEDS: PEPCID 20 MG IV PREMIX* 20 MG/50 ML BAG IV SCH (10:14)
[2017-02-21] MEDS: PROTONIX INJ 40 MG VIAL IVP SCH ×2 (10:14→20:43)
[2017-02-21] MEDS: ROBITUSSIN DM PO SCH ×4 (10:15→20:44)
[2017-02-21] MEDS: COLACE CAP 100 MG PO SCH ×2 (10:16→20:43)
[2017-02-21] MEDS: ASPIRIN EC 81 MG PO SCH (10:16)
[2017-02-21] MEDS: NAMENDA TAB 10 MG PO SCH (10:16)
[2017-02-21] MEDS: ALLEGRA PO SCH (10:16)
[2017-02-21] MEDS: MEGACE PO SCH ×2 (10:16→20:44)
[2017-02-21] MEDS: TOPROL XL PO SCH (10:16)
[2017-02-21] MEDS: ALBUMIN HUMAN 25%- 100ML 100 ML IV SCH (10:17)
[2017-02-21] MEDS: PROZAC PO SCH (10:17)
[2017-02-21] MEDS: NYSTATIN POWDER TOP SCH ×2 (10:22→21:48)
[2017-02-21] MEDS: MAGIC MOUTHWASH MT SCH ×4 (10:22→20:44)
[2017-02-21] MEDS: FLONASE NASAL SPRAY ENOSTRIL SCH (10:22)
[2017-02-21] MEDS: NS 500 ML IV 500 ML IV SCH (12:05)
[2017-02-21] MEDS: DIFLUCAN 200 MG IV PREMIX* 200 MG/100 ML BAG IV SCH (12:11)
[2017-02-21] MEDS: VANCOMYCIN HCL 500 MG VIAL 750 MG in NS 250 ML IV 250 ML IV SCH (12:11)
--- NOTE | 2017-02-21 12:19 | PCM.PROG ---
Progress Note - Progress Note for Day of Date: 02/21/17 - Subjective Subjective: PATIENT CONTINUES ON TREATMENT FOR MRSA PNEUMONIA. PATIENT IS NOTED WITH EXTREME GENERALIZED WEAKNESS. PATIENT IS DROWSY THIS MORNING, MORE THAN USUAL. HE VERY BRIEFLY AWAKENS TO TACTILE STIMULI. DAUGHTER AT BEDSIDE AND REPORTS PATIENT HAS SLEPT SINCE EGD YESTERDAY. EGD REPORTS: DISTAL ESOPHAGITIS AND MILD GASTRITIS. ON AUSCULTATION, LUNGS CONTINUE WITH SCATTERED WHEEZES TO UPPER LOBES. CBC WNL EXCEPT: H/H 11.3/33.4. CMP WNL EXCEPT: BUN 45 , GFR 58, GLUCOSE 156. CHEST XRAY REPORTS NO ACUTE INFILTRATES. WE WILL HOLD ALL SEDATIVES, CONTINUE VANCOMYCIN, ZOSYN, DIFLUCAN, MUCOMYST AND DECADRON WITH NEB TREATMENTS, FLUOXETINE, MEGACE, ENSURE, EFFEXOR, NEB TREATMENTS, PERIPHERAL TPN, AND ALBUMIN. WE WILL CONTINUE TO MONITOR AND FOLLOW UP IN AM WITH LABS AND CHEST XRAY. - Past Medical Family Social History Past Med/Fam/Surg Hx: No changes since H&P Allergies: Allergies Codeine Allergy (Verified 02/10/17 16:02) - Review of Systems ROS: No change since H&P - Vital Signs and I&O's Vital Signs: Temperature 98.8 F Pulse Rate [Apical] 117 Pulse Rate [Left Brachial] 103 Pulse Rate 78 Respiratory Rate 24 Blood Pressure [Right Arm] 152/86 Blood Pressure [Left Arm] 101/60 O2 Sat by Pulse Oximetry 98 Intake and Output: Intake & Output 02/19/17 02/20/17 02/21/17 02/22/17 11:59 11:59 11:59 11:59 Intake Total 4602 3724 3473 Output Total 3650 3150 3600 Balance 952 574 -127 - Physical Exam Oriented: Normal, Time, Person, Place Eyes: Normal. negative: Blurred Vision, Diplopia, Discharge, Pain, Redness, Photophobia Ear: Normal. negative: Swelling, Ecchymosis, Hemotypanum, Abrasion, Laceration Nose: Normal. negative: Injected, Discharge, Blood Throat: Normal. negative: Tonsillar Hypertrophy, Red, Exudate Respiratory: Generalized, Wheezes Cardiovascular: Normal. negative: Murmur, Edema : Normal. negative: Dysuria, Hematuria, Frequency, Discharge, Testicular Pain Auscultation: Bowel Sounds: Decreased. negative: Bruit Palpation: Normal. negative: Spleen Enlarged, Liver Enlarged, Mass Pulsatile Tenderness: Normal. negative: Rebound, Guarding, Rigidity Skin: Decreased Turgur. negative: Diaphoresis, Wound, Bruising, Ecchymosis Musculoskeletal: Tender (Tenderness to Right Chest Wall), Instability Psychiatric: Other (Somnolent) Mood Description: Calm Affect: Normal - Laboratory and Diagnostics Result Diagrams: 02/21/17 04:44 02/21/17 04:44 Labs: 02/16/17 03:19 Blood Blood Culture - Preliminary 02/17/17 09:16 Sputum - Expectorated Sputum Sputum Culture - Final Methicillin Resis Staph Aureus 02/17/17 09:16 Sputum - Expectorated Sputum - Final 02/14/17 09:55 Blood Blood Culture - Final 02/14/17 10:00 Blood Blood Culture - Final 02/16/17 03:06 Blood Blood Culture - Preliminary Laboratory WBC 9.6 X10^3/uL (3.6-10.0) 02/21/17 04:44 RBC 3.77 X10^6/uL (4.7-6.0) L 02/21/17 04:44 Hgb 11.3 g/dL (13.5-18.0) L 02/21/17 04:44 Hct 33.4 % (42.0-54.0) L 02/21/17 04:44 MCV 88.6 fL (80.0-100.0) 02/21/17 04:44 MCH 29.9 pg (27.0-34.0) 02/21/17 04:44 MCHC 33.8 g/dL (33.0-35.0) 02/21/17 04:44 RDW 16.4 % (11.6-16.5) 02/21/17 04:44 Plt Count 448 X10^3/uL (150.0-450.0) 02/21/17 04:44 Plt Count Comment Adequate (ADEQUATE) 02/21/17 04:44 MPV 8.3 fL (7.4-11.0) 02/21/17 04:44 Neut % 80.7 % (42.0-75.0) H 02/21/17 04:44 Lymph % 9.0 % (21.0-51.0) L 02/21/17 04:44 [place] % 8.9 % (0.0-13.0) 02/21/17 04:44 Eos % 0.9 % (0.9-2.9) 02/21/17 04:44 Baso % 0.5 % (0.2-1.0) 02/21/17 04:44 Neut # 7.7 x10^3/uL (2.2-4.8) H 02/21/17 04:44 Lymph # 0.9 X10^3/uL (1.3-2.9) L 02/21/17 04:44 [place] # 0.9 x10^3/uL (0.3-0.8) H 02/21/17 04:44 Eos # 0.1 x10^3/uL (0.0-0.2) 02/21/17 04:44 Baso # 0.0 X10^3/uL (0.0-0.1) 02/21/17 04:44 Absolute Nucleated RBC 0.0 /100WBC 02/21/17 04:44 Total Counted 100 02/21/17 04:44 Neutrophils % (Manual) 74 % (39-76) 02/21/17 04:44 Band Neutrophils % 4 % (0-10) 02/21/17 04:44 Lymphocytes % (Manual) 12 % (13-43) L 02/21/17 04:44 Monocytes % (Manual) 8 % (4-9) 02/21/17 04:44 Eosinophils % (Manual) 2 % (0-6) 02/21/17 04:44 Plt Clumps, EDTA Rare 02/18/17 05:00 Plt Morphology Comment Normal (NORMAL) 02/21/17 04:44 RBC Morphology Normal (NORMAL) 02/21/17 04:44 Sodium 140 mmol/L (136-145) 02/21/17 04:44 Corrected Sodium 141 mmol/L (136-145) 02/21/17 04:44 Potassium 4.6 mmol/L (3.5-5.1) 02/21/17 04:44 Chloride 107 mmol/L (98-107) 02/21/17 04:44 Carbon Dioxide 17.8 mmol/L (21-32) L 02/21/17 04:44 BUN 45 mg/dL (7-18) H 02/21/17 04:44 Creatinine 1.26 mg/dL (0.70-1.30) 02/21/17 04:44 Est GFR (MDRD) Af Amer > 60 (>60) 02/21/17 04:44 Est GFR (MDRD) Non-Af 58 (>60) L 02/21/17 04:44 Glucose 156 mg/dL (65-99) H 02/21/17 04:44 Calcium 9.1 mg/dL (8.5-10.1) 02/21/17 04:44 Corrected Calcium TNP 02/21/17 04:44 Total Bilirubin 0.40 mg/dL (0.2-1.0) 02/21/17 04:44 AST 32 Units/L (15-37) 02/21/17 04:44 ALT 29 Units/L (12-78) 02/21/17 04:44 Alkaline Phosphatase 80 Units/L (46-116) 02/21/17 04:44 Creatine Kinase 38 Units/L (39-308) L 02/11/17 05:40 CK-MB (CK-2) 1.0 ng/mL (0-4.0) 02/11/17 05:40 CK/CKMB % Calc 2.6 % (<4) 02/11/17 05:40 Troponin I < 0.02 ng/mL (0-1.5) 02/11/17 05:40 B-Natriuretic Peptide 20.7 pg/mL (0-79) 02/10/17 17:10 Total Protein 7.3 g/dL (6.4-8.2) 02/21/17 04:44 Albumin 3.7 g/dL (3.4-5.0) 02/21/17 04:44 Globulin 3.6 g/dL (2.5-4.5) 02/21/17 04:44 Albumin/Globulin Ratio 1.0 Ratio (1.1-2.1) L 02/21/17 04:44 Amylase 84 Units/L (25-115) 02/21/17 04:44 Lipase 309 Units/L (73-393) 02/21/17 04:44 Total PSA 1.35 ng/mL (0.13-4.0) 02/17/17 05:37 Specimen Type Catherized urine 02/18/17 10:11 Urine Color Yellow (YELLOW) 02/18/17 10:11 Urine Appearance Slightly hazy (CLEAR) 02/18/17 10:11 Urine pH 5.0 (5.0 - 8.0) 02/18/17 10:11 Ur Specific [place] 1.015 (1.000-1.030) 02/18/17 10:11 Urine Protein 2+ (NEGATIVE) 02/18/17 10:11 Urine Glucose (UA) Negative (NEGATIVE) 02/18/17 10:11 Urine Ketones Negative (NEGATIVE) 02/18/17 10:11 Urine Occult Blood 2+ (NEGATIVE) 02/18/17 10:11 Urine Nitrite Negative (NEGATIVE) 02/18/17 10:11 Urine Bilirubin Negative (NEGATIVE) 02/18/17 10:11 Urine Urobilinogen Normal (NORMAL) 02/18/17 10:11 Ur Leukocyte Esterase Negative (NEGATIVE) 02/18/17 10:11 Urine RBC 0-3 /HPF (NEGATIVE) 02/18/17 10:11 Urine WBC 2-5 /HPF (NEGATIVE) 02/18/17 10:11 Ur Squamous Epith Cells Rare /HPF (NEGATIVE) 02/18/17 10:11 Ur Renal Epithelial Cell Rare /HPF (NEGATIVE) 02/18/17 10:11 Amorphous Sediment Trace /HPF (NEGATIVE) 02/18/17 10:11 Urine Bacteria Negative /HPF (NEGATIVE) 02/18/17 10:11 Ur Culture Indicated? No/not indicated 02/18/17 10:11 Influenza A (H1N1) PCR Not detected (NOT DETECT) 02/14/17 08:54 Influenza Type A (PCR) Negative (NEGATIVE) 02/14/17 08:54 Influenza Type B (PCR) Negative (NEGATIVE) 02/14/17 08:54 Mycoplasma pneumon IgG Negative (NEGATIVE) 02/17/17 11:59 Tissue Pathology To follow 02/20/17 13:01 - Plan (1) Pneumonia Status: Acute Qualifiers: Pneumonia type: due to methicillin-resistant Staphylococcus aureus (MRSA) Aspiration pneumonia type: A Laterality: bilateral Lung location: lower lobe of lung Qualified Code(s): J15.212 - Pneumonia due to Methicillin resistant Staphylococcus aureus Plan: CONTINUE VANCOMYCIN, DECADRON AND MUCOMYST WITH XOPENEX, ZOSYN, ROBITUSSIN , MONITOR LABS AND CHEST XRAY. (2) Sinus tachycardia Status: Acute Plan: CONTINUE TOPROL XL 50MG DAILY, MONITOR. (3) Oral candidiasis Status: Acute Plan: CONTINUE DIFLUCAN, MAGIC MOUTHWASH, MONITOR. (4) Nausea & vomiting Status: Acute Qualifiers: Vomiting type: cyclical vomiting Vomiting Intractability: non-intractable Qualified Code(s): G43.A0 - Cyclical vomiting, not intractable Plan: EGD TODAY, CONITNUE PEPCID, IV FLUIDS, IV ZOFRAN, PROTONIX, MONITOR. (5) Poor appetite Status: Acute Plan: CONTINUE PERIPHERAL TPN, ALBUMIN, MEGACE, ENSURE, MONITOR INTAKE. (6) Dizziness Status: Acute Plan: CONTINUE TO MONITOR. (7) Generalized weakness Status: Acute Plan: CONTINUE PHYSICAL THERAPY, PERIPHERAL TPN, ENCOURAGE NUTRITION, MONITOR. (8) Herpes labialis Status: Acute Plan: CONTINUE ACYCLOVIR OINTMENT TO LIPS, MONITOR. (9) Sinusitis Status: Acute Qualifiers: Sinusitis location: maxillary Chronicity: acute Recurrence: non- recurrent Qualified Code(s): J01.00 - Acute maxillary sinusitis, unspecified Plan: CONTINUE ZOSYN, MONITOR. (10) Constipation by delayed colonic transit Status: Acute Plan: CONTINUE MILK OF MAGNESIA, MIRALAX, COLACE, MONITOR. (11) Hypoalbuminemia Status: Acute Plan: CONTINUE ALBUMIN, MONITOR. (12) Dehydration Status: Acute Plan: CONTINUE IV FLUIDS, MONITOR LABS. (13) Pulmonary contusion Status: Acute Qualifiers: Encounter type: initial encounter Laterality: right Qualified Code(s): S27.321A - Contusion of lung, unilateral, initial encounter Plan: CONTINUE TO MONITOR. (14) Right rib fracture Status: Acute Qualifiers: Encounter type: initial encounter Rib fracture type: multiple ribs Fracture type: closed Fracture healing: F Qualified Code(s): S22.41XA - Multiple fractures of ribs, right side, initial encounter for closed fracture Plan: PAIN MANAGMENT, MONITOR. (15) Dementia Status: Chronic Qualifiers: Dementia type: vascular dementia Alzheimer's disease onset: A Dementia behavioral disturbance: without behavioral disturbance Qualified Code(s): F01.50 - Vascular dementia without behavioral disturbance (16) Back pain Status: Chronic Qualifiers: Back pain location: low back pain Chronicity: chronic Back pain laterality: bilateral Sciatica presence: without sciatica Sciatica laterality: S Qualified Code(s): M54.5 - Low back pain; G89.29 - Other chronic pain (17) Arthritis Status: Chronic
[2017-02-21] MEDS: SNACK - Diabetic Appropriate PO SCH (20:00)
[2017-02-21] MEDS: MIRALAX POWDER (1 DOSE 17GM) PO SCH (20:43)
[2017-02-21] MEDS: FLOMAX PO SCH (20:43)
[2017-02-21] MEDS: SINGULAIR TAB 10 MG PO SCH (20:44)
[2017-02-21] MEDS: ZOCOR TAB 40 MG PO SCH (20:44)
[2017-02-22] MEDS: ZOVIRAX TOP SCH ×3 (01:05→17:47)
[2017-02-22] MEDS: CLINIMIX 4.25 %/10 % 1,000 ML with MVI INJ (ADULT) 10 ML, TRACE ELEMENTS INJ 10 ML, TPN... IV SCH ×18 (03:45→17:47)
[2017-02-22] MEDS: ZOSYN VIAL 3.375 GM 3.375 GM in NS 100 ML IV + SPIKE MINIBAG* 100 ML IV SCH ×4 (06:08→21:33)
--- NOTE | 2017-02-22 07:33 | RAD ---
HISTORY: Cough Study: Single-view chest, done portably Comparison: February 21, 2017 Findings: Cardiac monitoring electrodes are noted on the chest. The trachea is midline. There is cardiomegaly with aortic uncoiling. Pulmonary vascularity and aeration of the lungs has improved bilaterally. Thi s is likely on the basis of improved inspiratory effort. No consolidation, CHF, pleural fluid or pne umothorax is seen. Osseous structures are intact. IMPRESSION: Improvement in pulmonary vascularity and aeration in both lungs. This is likely on the basis of impr leann inspiration. No consolidation is seen. Reported By:
[2017-02-22 07:59] LABS: BASOPHILS # (AUTO) 0.1 X10^3/uL (0.0-0.1); EOSINOPHILS # (AUTO) 0.1 x10^3/uL (0.0-0.2); EOSINOPHILS % (AUTO) 0.9 % (0.9-2.9); HEMATOCRIT 30.3 % (42.0-54.0); HEMOGLOBIN 9.9 g/dL (13.5-18.0); LYMPHOCYTES # (AUTO) 1.1 X10^3/uL (1.3-2.9); LYMPHOCYTES % (AUTO) 8.7 % (21.0-51.0); MEAN CORPUSCULAR HGB CONC 32.6 g/dL (33.0-35.0); MEAN CORPUSCULAR VOLUME 88.8 fL (80.0-100.0); MEAN PLATELET VOLUME 8.1 fL (7.4-11.0); MONOCYTES # (AUTO) 1.2 x10^3/uL (0.3-0.8); NEUTROPHILS # (AUTO) 9.7 x10^3/uL (2.2-4.8); NEUTROPHILS % (AUTO) 79.4 % (42.0-75.0); PLATELET COUNT 487 X10^3/uL (150.0-450.0); RED BLOOD COUNT 3.41 X10^6/uL (4.7-6.0); WHITE BLOOD COUNT 12.2 X10^3/uL (3.6-10.0)
[2017-02-22 08:08] LABS: CREATININE 1.16 mg/dL (0.70-1.30)
[2017-02-22 08:10] LABS: ALANINE AMINOTRANSFERASE 40 Units/L (12-78); ALBUMIN 3.7 g/dL (3.4-5.0); ALKALINE PHOSPHATASE 101 Units/L (46-116); ASPARTATE AMINO TRANSFERASE 34 Units/L (15-37); BLOOD UREA NITROGEN 49 mg/dL (7-18); CALCIUM 8.9 mg/dL (8.5-10.1); CARBON DIOXIDE 19.5 mmol/L (21-32); CHLORIDE 107 mmol/L (98-107); COR NA(FOR HYPERGLY) 141 mmol/L (136-145); GLUCOSE 118 mg/dL (65-99); SODIUM 141 mmol/L (136-145); TOTAL PROTEIN 6.9 g/dL (6.4-8.2); eGFR BLACK RACES > 60 (>60); eGFR NON BLACK RACES > 60 (>60)
[2017-02-22] MEDS ORDERED: ALLEGRA ONE (08:21)
[2017-02-22] MEDS: LOVENOX INJ 30 MG SYR SC SCH ×2 (08:52→21:36)
[2017-02-22] MEDS: ALBUMIN HUMAN 25%- 100ML 100 ML IV SCH (08:52)
[2017-02-22] MEDS: ROBITUSSIN DM PO SCH ×4 (08:52→21:36)
[2017-02-22] MEDS: ASPIRIN EC 81 MG PO SCH (08:53)
[2017-02-22] MEDS: ALLEGRA PO SCH (08:53)
[2017-02-22] MEDS: COLACE CAP 100 MG PO SCH ×2 (08:53→21:36)
[2017-02-22] MEDS: NAMENDA TAB 10 MG PO SCH (08:53)
[2017-02-22] MEDS: PEPCID 20 MG IV PREMIX* 20 MG/50 ML BAG IV SCH (08:53)
[2017-02-22] MEDS: MEGACE PO SCH ×2 (08:53→21:36)
[2017-02-22] MEDS: NYSTATIN POWDER TOP SCH ×2 (08:54→21:37)
[2017-02-22] MEDS: TOPROL XL PO SCH (08:54)
[2017-02-22] MEDS: PROTONIX INJ 40 MG VIAL IVP SCH ×2 (08:54→21:36)
[2017-02-22] MEDS: FLONASE NASAL SPRAY ENOSTRIL SCH (08:55)
[2017-02-22] MEDS: MAGIC MOUTHWASH MT SCH ×4 (08:55→21:37)
[2017-02-22 09:09] LABS: BAND NEUTROPHILS % 6 % (0-10); PLATELET MORPHOLOGY COMMENT NORMAL (NORMAL)
[2017-02-22] MEDS: XOPENEX 1.25 MG/3 ML NEB SCH ×4 (09:25→20:44)
[2017-02-22] MEDS: DECADRON JET NEB NEB SCH ×4 (09:26→20:44)
[2017-02-22] MEDS: NS 500 ML IV 500 ML IV SCH (10:01)
[2017-02-22] MEDS: DIFLUCAN 200 MG IV PREMIX* 200 MG/100 ML BAG IV SCH (11:27)
[2017-02-22] MEDS: VANCOMYCIN HCL 500 MG VIAL 750 MG in NS 250 ML IV 250 ML IV SCH (11:27)
[2017-02-22] MEDS: FLOMAX PO SCH (21:35)
[2017-02-22] MEDS: SINGULAIR TAB 10 MG PO SCH (21:35)
[2017-02-22] MEDS: ZOCOR TAB 40 MG PO SCH (21:35)
[2017-02-22] MEDS: MIRALAX POWDER (1 DOSE 17GM) PO SCH (21:37)
[2017-02-22] MEDS: SNACK - Diabetic Appropriate PO SCH (21:38)
[2017-02-23] MEDS: ZOVIRAX TOP SCH ×3 (01:00→18:21)
[2017-02-23 05:39] LABS: BASOPHILS # (AUTO) 0.1 X10^3/uL (0.0-0.1); BASOPHILS % (AUTO) 1.2 % (0.2-1.0); EOSINOPHILS % (AUTO) 0.3 % (0.9-2.9); HEMATOCRIT 28.6 % (42.0-54.0); HEMOGLOBIN 9.7 g/dL (13.5-18.0); LYMPHOCYTES # (AUTO) 1.1 X10^3/uL (1.3-2.9); LYMPHOCYTES % (AUTO) 9.6 % (21.0-51.0); MEAN CORPUSCULAR HEMOGLOBIN 30.3 pg (27.0-34.0); MEAN PLATELET VOLUME 8.6 fL (7.4-11.0); MONOCYTES % (AUTO) 9.5 % (0.0-13.0); NEUTROPHILS # (AUTO) 8.7 x10^3/uL (2.2-4.8); NEUTROPHILS % (AUTO) 79.4 % (42.0-75.0); PLATELET COUNT 477 X10^3/uL (150.0-450.0); RED BLOOD COUNT 3.21 X10^6/uL (4.7-6.0); RED CELL DISTRIBUTION WIDTH 16.4 % (11.6-16.5)
[2017-02-23 05:41] LABS: ALANINE AMINOTRANSFERASE 42 Units/L (12-78); ALBUMIN 3.7 g/dL (3.4-5.0); ALKALINE PHOSPHATASE 111 Units/L (46-116); ASPARTATE AMINO TRANSFERASE 30 Units/L (15-37); BLOOD UREA NITROGEN 53 mg/dL (7-18); CHLORIDE 108 mmol/L (98-107); COR NA(FOR HYPERGLY) 142 mmol/L (136-145); CREATININE 1.18 mg/dL (0.70-1.30); GLUCOSE 164 mg/dL (65-99); SODIUM 140 mmol/L (136-145); TOTAL PROTEIN 6.8 g/dL (6.4-8.2); eGFR BLACK RACES > 60 (>60); eGFR NON BLACK RACES > 60 (>60)
[2017-02-23] MEDS: ZOSYN VIAL 3.375 GM 3.375 GM in NS 100 ML IV + SPIKE MINIBAG* 100 ML IV SCH ×3 (05:54→21:45)
[2017-02-23] MEDS: CLINIMIX 4.25 %/10 % 1,000 ML with MVI INJ (ADULT) 10 ML, TRACE ELEMENTS INJ 10 ML, TPN... IV SCH ×12 (05:54→21:41)
[2017-02-23 06:55] LABS: BAND NEUTROPHILS % 9 % (0-10)
[2017-02-23 06:56] LABS: PLATELET MORPHOLOGY COMMENT NORMAL (NORMAL)
--- NOTE | 2017-02-23 07:21 | RAD ---
HISTORY: Dehydration, weakness, cough Study: Single-view chest, done portably Comparison: February 22, 2017 Findings: Trachea is midline. The upper limits of normal atherosclerotic calcification and uncoiling of the ao rtic arch. Mild pulmonary vascular congestion is present . Lungs display increased interstitial dorys ings. No consolidation, CHF, pleural fluid or pneumothorax is seen. Osseous structures are intact. IMPRESSION: Hypertensive configuration with mild vascular congestion. Increased interstitial markings without consolidation. Reported By:
[2017-02-23] MEDS ORDERED: ALLEGRA ONE (07:39)
[2017-02-23] MEDS: ROBITUSSIN DM PO SCH ×4 (08:06→21:49)
[2017-02-23] MEDS: ASPIRIN EC 81 MG PO SCH (08:07)
[2017-02-23] MEDS: ALBUMIN HUMAN 25%- 100ML 100 ML IV SCH (08:07)
[2017-02-23] MEDS: TOPROL XL PO SCH (08:07)
[2017-02-23] MEDS: MEGACE PO SCH ×2 (08:07→21:49)
[2017-02-23] MEDS: COLACE CAP 100 MG PO SCH ×2 (08:07→21:50)
[2017-02-23] MEDS: ALLEGRA PO SCH (08:07)
[2017-02-23] MEDS: NAMENDA TAB 10 MG PO SCH (08:07)
[2017-02-23] MEDS: PROTONIX INJ 40 MG VIAL IVP SCH ×2 (08:08→21:47)
[2017-02-23] MEDS: FLONASE NASAL SPRAY ENOSTRIL SCH (08:08)
[2017-02-23] MEDS: LOVENOX INJ 30 MG SYR SC SCH ×2 (08:08→21:49)
[2017-02-23] MEDS: MAGIC MOUTHWASH MT SCH ×4 (08:09→21:50)
[2017-02-23] MEDS: NYSTATIN POWDER TOP SCH ×2 (08:09→21:53)
[2017-02-23] MEDS: DECADRON JET NEB NEB SCH ×4 (09:20→20:20)
[2017-02-23] MEDS: XOPENEX 1.25 MG/3 ML NEB SCH ×4 (09:20→20:19)
[2017-02-23] MEDS: PEPCID 20 MG IV PREMIX* 20 MG/50 ML BAG IV SCH (09:22)
[2017-02-23] MEDS: VANCOMYCIN HCL 500 MG VIAL 750 MG in NS 250 ML IV 250 ML IV SCH (10:14)
[2017-02-23] MEDS ORDERED: BUTT CREAM (COMPOUND) TOP PRN (10:28)
[2017-02-23] MEDS: DIFLUCAN 200 MG IV PREMIX* 200 MG/100 ML BAG IV SCH (11:13)
[2017-02-23] MEDS: SINGULAIR TAB 10 MG PO SCH (21:49)
[2017-02-23] MEDS: FLOMAX PO SCH (21:49)
[2017-02-23] MEDS: ZOCOR TAB 40 MG PO SCH (21:49)
[2017-02-23] MEDS: MIRALAX POWDER (1 DOSE 17GM) PO SCH (21:53)
[2017-02-23] MEDS: SNACK - Diabetic Appropriate PO SCH (21:53)
[2017-02-24] MEDS: ZOVIRAX TOP SCH ×2 (01:00→09:40)
[2017-02-24 05:07] LABS: BASOPHILS # (AUTO) 0.1 X10^3/uL (0.0-0.1); BASOPHILS % (AUTO) 0.6 % (0.2-1.0); EOSINOPHILS % (AUTO) 0.2 % (0.9-2.9); HEMATOCRIT 26.4 % (42.0-54.0); LYMPHOCYTES # (AUTO) 1.3 X10^3/uL (1.3-2.9); LYMPHOCYTES % (AUTO) 9.8 % (21.0-51.0); MEAN CORPUSCULAR HEMOGLOBIN 30.3 pg (27.0-34.0); MEAN CORPUSCULAR HGB CONC 34.1 g/dL (33.0-35.0); MEAN PLATELET VOLUME 8.5 fL (7.4-11.0); MONOCYTES # (AUTO) 1.4 x10^3/uL (0.3-0.8); MONOCYTES % (AUTO) 11.2 % (0.0-13.0); NEUTROPHILS # (AUTO) 10.1 x10^3/uL (2.2-4.8); NEUTROPHILS % (AUTO) 78.2 % (42.0-75.0); PLATELET COUNT 501 X10^3/uL (150.0-450.0); RED BLOOD COUNT 2.97 X10^6/uL (4.7-6.0); RED CELL DISTRIBUTION WIDTH 16.3 % (11.6-16.5); WHITE BLOOD COUNT 12.9 X10^3/uL (3.6-10.0)
[2017-02-24] MEDS ORDERED: NS 250 ML IV 250 ML IV ONE (05:09)
[2017-02-24 05:11] LABS: ALANINE AMINOTRANSFERASE 37 Units/L (12-78); ALBUMIN 3.7 g/dL (3.4-5.0); ALKALINE PHOSPHATASE 103 Units/L (46-116); ASPARTATE AMINO TRANSFERASE 25 Units/L (15-37); BLOOD UREA NITROGEN 47 mg/dL (7-18); CALCIUM 8.6 mg/dL (8.5-10.1); CARBON DIOXIDE 19.8 mmol/L (21-32); CHLORIDE 107 mmol/L (98-107); COR NA(FOR HYPERGLY) 141 mmol/L (136-145); CREATININE 1.25 mg/dL (0.70-1.30); GLUCOSE 133 mg/dL (65-99); SODIUM 140 mmol/L (136-145); TOTAL PROTEIN 6.7 g/dL (6.4-8.2); eGFR BLACK RACES > 60 (>60); eGFR NON BLACK RACES 59 (>60)
[2017-02-24 05:40] LABS: BAND NEUTROPHILS % 4 % (0-10); PLATELET MORPHOLOGY COMMENT NORMAL (NORMAL)
[2017-02-24] MEDS: ZOSYN VIAL 3.375 GM 3.375 GM in NS 100 ML IV + SPIKE MINIBAG* 100 ML IV SCH (06:01)
--- NOTE | 2017-02-24 08:27 | RAD ---
HISTORY: Weakness Study: Chest one view Comparison: February 23, 2017 Findings: The heart is upper limits normal in size. The aorta is ectatic. The warren are normal. No congestive h eart failure is noted. No acute alveolar infiltrates or pleural effusions are identified. The bony t horax is unremarkable. IMPRESSION: Lungs clear Reported By:
[2017-02-24 08:36] VITALS: BP 129/69
[2017-02-24] MEDS: DECADRON JET NEB NEB SCH ×2 (09:06→12:15)
[2017-02-24] MEDS: XOPENEX 1.25 MG/3 ML NEB SCH ×2 (09:06→12:15)
[2017-02-24] MEDS ORDERED: ALLEGRA ONE (09:10)
[2017-02-24] MEDS: ALBUMIN HUMAN 25%- 100ML 100 ML IV SCH (09:36)
[2017-02-24] MEDS: LOVENOX INJ 30 MG SYR SC SCH (09:38)
[2017-02-24] MEDS: MEGACE PO SCH (09:39)
[2017-02-24] MEDS: ASPIRIN EC 81 MG PO SCH (09:40)
[2017-02-24] MEDS: TOPROL XL PO SCH (09:40)
[2017-02-24] MEDS: NAMENDA TAB 10 MG PO SCH (09:40)
[2017-02-24] MEDS: COLACE CAP 100 MG PO SCH (09:40)
[2017-02-24] MEDS: ROBITUSSIN DM PO SCH (09:40)
[2017-02-24] MEDS: ALLEGRA PO SCH (09:40)
[2017-02-24] MEDS: PROTONIX INJ 40 MG VIAL IVP SCH (09:41)
[2017-02-24] MEDS: MAGIC MOUTHWASH MT SCH (09:41)
[2017-02-24] MEDS: FLONASE NASAL SPRAY ENOSTRIL SCH (09:41)
[2017-02-24] MEDS: NYSTATIN POWDER TOP SCH (09:42)
[2017-02-24] MEDS: PEPCID 20 MG IV PREMIX* 20 MG/50 ML BAG IV SCH (09:55)
[2017-02-24] MEDS: CLINIMIX 4.25 %/10 % 1,000 ML with MVI INJ (ADULT) 10 ML, TRACE ELEMENTS INJ 10 ML, TPN... IV SCH ×6 (09:57)
[2017-02-24] MEDS: DIFLUCAN 200 MG IV PREMIX* 200 MG/100 ML BAG IV SCH (10:35)
[2017-02-24] MEDS ORDERED: ZOSYN VIAL 3.375 GM 3.375 GM in NS 100 ML IV + SPIKE MINIBAG* 100 ML IV SCH (11:46)
[2017-02-24] MEDS: NS 500 ML IV 500 ML IV SCH (11:56)
[2017-02-24] MEDS: VANCOMYCIN HCL 500 MG VIAL 750 MG in NS 250 ML IV 250 ML IV SCH (11:58)
[2017-02-24] MEDS ORDERED: KLONOPIN TAB 1 MG PO SCH (21:00)
== END 2017-02-24 12:45 | disposition swing bed (61) | DRG 183 ==
LOC: ER 15:56 → ICU 21:08 → OBSVTOIN 02-11 08:00 → MED/SURG 02-22 14:10
PROVIDERS: ADMIT Internal Medicine; ATTEND Internal Medicine
PROC: 3E0234Z Introduction of Serum, Toxoid and Vaccine into Muscle, Percutaneous Approach (ICD-10-PCS; 2017-02-11)
PROC: 3E0234Z Introduction of Serum, Toxoid and Vaccine into Muscle, Percutaneous Approach (ICD-10-PCS; 2017-02-11)
PROC: 0D9670Z Drainage of Stomach with Drainage Device, Via Natural or Artificial Opening (ICD-10-PCS; 2017-02-19)
PROC: 0DB68ZX Excision of Stomach, Via Natural or Artificial Opening Endoscopic, Diagnostic (ICD-10-PCS; principal; 2017-02-20 16:00)
DX: S22.41XA Multiple fractures of ribs, right side, initial encounter for closed fracture (principal); J15.212 Pneumonia due to Methicillin resistant Staphylococcus aureus; S27.321A Contusion of lung, unilateral, initial encounter; B37.0 Candidal stomatitis; R42 Dizziness and giddiness; E86.0 Dehydration; R53.1 Weakness; R07.1 Chest pain on breathing; R26.89 Other abnormalities of gait and mobility; W18.39XA Other fall on same level, initial encounter; R10.11 Right upper quadrant pain; M13.89 Other specified arthritis, multiple sites; G30.8 Other Alzheimer's disease; F02.80 Dementia in other diseases classified elsewhere, unspecified severity, without behavioral disturbance, psychotic disturbance, mood disturbance, and anxiety; F01.50 Vascular dementia, unspecified severity, without behavioral disturbance, psychotic disturbance, mood disturbance, and anxiety; K20.8 Other esophagitis; K29.60 Other gastritis without bleeding; J01.80 Other acute sinusitis; J20.8 Acute bronchitis due to other specified organisms; R11.2 Nausea with vomiting, unspecified; R00.0 Tachycardia, unspecified; B00.1 Herpesviral vesicular dermatitis; M54.5 Low back pain; E88.09 Other disorders of plasma-protein metabolism, not elsewhere classified; I51.7 Cardiomegaly; K59.09 Other constipation; Z23 Encounter for immunization; R29.6 Repeated falls
CPT/HCPCS: 36415; 70486; 70544; 70552; 71010; 71250; 71275; 74000; 74176; 80053; 80202; 81001; 82150; 82550; 82553; 82565; 83690; 83880; 84153; 84484; 85025; 86738; 87040; 87070; 87077; 87086; 87186; 87205; 87502; 87503; 90686; 93005; 94640; 96365; 96367; 96374; 96375; 99100; 99284; A4222; B4189; C9113; P9047; Q0177; S0028; S0179; 90670; A4217; G0378; J1450; J1650; J1815; J1956; J2405; J2543; J2560; J3370; J3490; J7608; J7620

== ENCOUNTER 2017-02-24 12:45 | Inpatient (IN) | payer OTHER ==
[2017-02-24 13:46] VITALS: BMI 24.0
[2017-02-24] MEDS ORDERED: BUTT CREAM (COMPOUND) TOP PRN (14:32)
[2017-02-24] MEDS ORDERED: VANCOMYCIN HCL 500 MG VIAL 750 MG in NS 250 ML IV 250 ML IV SCH (14:32)
[2017-02-24] MEDS ORDERED: HUMULIN R SUBCUT PRN (14:32)
[2017-02-24] MEDS ORDERED: ZOFRAN INJ 4 MG VIAL IVP PRN (14:32)
[2017-02-24] MEDS ORDERED: MIRALAX POWDER (1 DOSE 17GM) PO SCH (14:32)
--- NOTE | 2017-02-24 15:11 | DR.UPDATE ---
H&P Update History and Physical Update: H&P UPDATE FOR ADMISSION 02/24/17 MR. PETER'S H&P WAS COMPLETED WITH HIS PRIOR VISIT ON 02/10/17. HE HAS BEEN DISCHARGED FROM INPATIENT STATUS AND CHANGED TO SWINGBED STATUS FOR FURTHER IV THERAPY, PHYSICAL THERAPY, AND NUTRITION. PATIENT HAS HAD DIFFICULTY WITH MOBILITY DUE TO SEVERE GENERALIZED WEAKNESS FOLLOWING A MRSA PNEUMONIA. PATIENT WILL CONTINUE ON IV VANCOMYCIN AND IV ZOSYN FOR TREATMENT. WE WILL CONTINUE TO MONITOR PROGRESS WITH PHYSICAL THERAPY AND OBTAIN LABS AND CHEST XRAY TWICE PER WEEK. DAUGHTER AT BEDSIDE AND IS IN AGREEMENT WITH TREATMENT.
[2017-02-24] MEDS ORDERED: TUSSIONEX PENNKINETIC SUSP PO PRN (15:15)
[2017-02-24] MEDS: DECADRON JET NEB NEB SCH ×2 (16:22→20:45)
[2017-02-24] MEDS: XOPENEX 1.25 MG/3 ML NEB SCH ×2 (16:22→20:45)
[2017-02-24] MEDS: ZOSYN VIAL 3.375 GM 3.375 GM in NS 100 ML IV + SPIKE MINIBAG* 100 ML IV SCH ×2 (16:25→21:39)
[2017-02-24] MEDS: XYLOCAINE VISCOUS MT SCH ×2 (16:26→21:42)
[2017-02-24] MEDS: ROBITUSSIN DM PO SCH ×2 (16:26→21:40)
[2017-02-24] MEDS ORDERED: FLOMAX PO SCH (21:00)
[2017-02-24] MEDS ORDERED: KLONOPIN TAB 1 MG PO SCH (21:00)
[2017-02-24] MEDS: TPN ELECTROLYTES IV SCH ×6 (21:29)
[2017-02-24] MEDS: [UNRECOGNIZED DRUG - OTHER] IV SCH ×6 (21:29)
[2017-02-24] MEDS: CLINIMIX IV SCH ×6 (21:29)
[2017-02-24] MEDS: MVI IV SCH ×6 (21:29)
[2017-02-24] MEDS: NYSTATIN POWDER TOP SCH (21:34)
[2017-02-24] MEDS: ZOVIRAX EXT SCH (21:38)
[2017-02-24] MEDS: PROTONIX TAB 40 MG PO SCH (21:39)
[2017-02-24] MEDS: FLOMAX PO SCH (21:39)
[2017-02-24] MEDS: COLACE CAP 100 MG PO SCH (21:40)
[2017-02-24] MEDS: SINGULAIR TAB 10 MG PO SCH (21:41)
[2017-02-24] MEDS: MEGACE PO SCH (21:41)
[2017-02-24] MEDS: LOVENOX INJ 30 MG SYR SC SCH (21:41)
[2017-02-24] MEDS: ZOCOR TAB 40 MG PO SCH (21:41)
[2017-02-24] MEDS: SNACK - Diabetic Appropriate PO SCH (21:42)
[2017-02-25] MEDS: ZOSYN VIAL 3.375 GM 3.375 GM in NS 100 ML IV + SPIKE MINIBAG* 100 ML IV SCH ×3 (05:57→21:55)
[2017-02-25] MEDS: ZOVIRAX EXT SCH ×3 (06:02→21:58)
[2017-02-25] MEDS ORDERED: ALLEGRA ONE (09:07)
[2017-02-25] MEDS ORDERED: MIRALAX POWDER (1 DOSE 17GM) PO PRN (09:12)
[2017-02-25] MEDS: ROBITUSSIN DM PO SCH ×4 (09:49→21:57)
[2017-02-25] MEDS: COLACE CAP 100 MG PO SCH ×2 (09:49→21:57)
[2017-02-25] MEDS: XYLOCAINE VISCOUS MT SCH ×5 (09:49→21:59)
[2017-02-25] MEDS: MEGACE PO SCH ×2 (09:49→21:57)
[2017-02-25] MEDS: ALLEGRA PO SCH (09:49)
[2017-02-25] MEDS: PEPCID TAB 20 MG PO SCH (09:49)
[2017-02-25] MEDS: ASPIRIN EC 81 MG PO SCH (09:49)
[2017-02-25] MEDS: TOPROL XL PO SCH (09:49)
[2017-02-25] MEDS: PROTONIX TAB 40 MG PO SCH ×2 (09:50→21:57)
[2017-02-25] MEDS: DIFLUCAN PO SCH (09:50)
[2017-02-25] MEDS: NYSTATIN POWDER TOP SCH ×2 (09:51→21:58)
[2017-02-25] MEDS: NAMENDA TAB 10 MG PO SCH (09:51)
[2017-02-25] MEDS: FLONASE NASAL SPRAY ENOSTRIL SCH (09:52)
[2017-02-25] MEDS: LOVENOX INJ 30 MG SYR SC SCH ×2 (10:06→21:57)
[2017-02-25] MEDS: DECADRON JET NEB NEB SCH ×4 (13:38→20:45)
[2017-02-25] MEDS: XOPENEX 1.25 MG/3 ML NEB SCH ×4 (13:38→20:45)
[2017-02-25] MEDS: CLINIMIX IV SCH ×12 (15:48→22:01)
[2017-02-25] MEDS: TPN ELECTROLYTES IV SCH ×12 (15:48→22:01)
[2017-02-25] MEDS: MVI IV SCH ×12 (15:48→22:01)
[2017-02-25] MEDS: [UNRECOGNIZED DRUG - OTHER] IV SCH ×12 (15:48→22:01)
[2017-02-25] MEDS ORDERED: SEROQUEL TAB 25 MG PO SCH (21:00)
[2017-02-25] MEDS: SNACK - Diabetic Appropriate PO SCH (21:55)
[2017-02-25] MEDS: ZOCOR TAB 40 MG PO SCH (21:57)
[2017-02-25] MEDS: FLOMAX PO SCH (21:57)
[2017-02-25] MEDS: SINGULAIR TAB 10 MG PO SCH (21:57)
[2017-02-26] MEDS: ZOSYN VIAL 3.375 GM 3.375 GM in NS 100 ML IV + SPIKE MINIBAG* 100 ML IV SCH ×3 (05:46→21:09)
[2017-02-26] MEDS: ZOVIRAX EXT SCH ×3 (05:47→21:09)
[2017-02-26] MEDS: DECADRON JET NEB NEB SCH ×5 (08:43→20:40)
[2017-02-26] MEDS: XOPENEX 1.25 MG/3 ML NEB SCH ×5 (08:43→20:39)
[2017-02-26] MEDS ORDERED: ALLEGRA ONE (09:08)
[2017-02-26 09:23] LABS: CREATININE 1.24 mg/dL (0.70-1.30)
[2017-02-26] MEDS: TPN ELECTROLYTES IV SCH ×12 (10:12→20:36)
[2017-02-26] MEDS: CLINIMIX IV SCH ×12 (10:12→20:36)
[2017-02-26] MEDS: MVI IV SCH ×12 (10:12→20:36)
[2017-02-26] MEDS: [UNRECOGNIZED DRUG - OTHER] IV SCH ×12 (10:12→20:36)
[2017-02-26] MEDS: LOVENOX INJ 30 MG SYR SC SCH ×2 (10:12→20:40)
[2017-02-26] MEDS: ROBITUSSIN DM PO SCH ×4 (10:13→20:41)
[2017-02-26] MEDS: ALLEGRA PO SCH (10:16)
[2017-02-26] MEDS: DIFLUCAN PO SCH (10:17)
[2017-02-26] MEDS: PEPCID TAB 20 MG PO SCH (10:18)
[2017-02-26] MEDS: TOPROL XL PO SCH (10:18)
[2017-02-26] MEDS: MEGACE PO SCH ×2 (10:18→20:41)
[2017-02-26] MEDS: NAMENDA TAB 10 MG PO SCH (10:18)
[2017-02-26] MEDS: COLACE CAP 100 MG PO SCH ×2 (10:18→20:42)
[2017-02-26] MEDS: ASPIRIN EC 81 MG PO SCH (10:18)
[2017-02-26] MEDS: PROTONIX TAB 40 MG PO SCH ×2 (10:18→20:42)
[2017-02-26] MEDS: FLONASE NASAL SPRAY ENOSTRIL SCH (10:19)
[2017-02-26] MEDS: NYSTATIN POWDER TOP SCH ×2 (10:19→20:43)
[2017-02-26] MEDS: XYLOCAINE VISCOUS MT SCH ×4 (10:25→20:43)
[2017-02-26] MEDS ORDERED: NS 250 ML IV 250 ML IV ONE (11:43)
[2017-02-26] MEDS ORDERED: VANCOMYCIN HCL 1 GM VIAL ONE (11:43)
[2017-02-26] MEDS ORDERED: VANCOMYCIN HCL 500 MG VIAL 750 MG in NS 250 ML IV 250 ML IV ONE (11:45)
[2017-02-26] MEDS ORDERED: SEROQUEL TAB 25 MG PO SCH (19:36)
[2017-02-26] MEDS: VANCOMYCIN HCL 500 MG VIAL 750 MG in NS 250 ML IV 250 ML IV SCH (20:41)
[2017-02-26] MEDS: ZOCOR TAB 40 MG PO SCH (20:42)
[2017-02-26] MEDS: SNACK - Diabetic Appropriate PO SCH (20:42)
[2017-02-26] MEDS: SINGULAIR TAB 10 MG PO SCH (20:42)
[2017-02-26] MEDS: FLOMAX PO SCH (20:42)
[2017-02-27] MEDS: ZOSYN VIAL 3.375 GM 3.375 GM in NS 100 ML IV + SPIKE MINIBAG* 100 ML IV SCH ×3 (06:14→21:49)
[2017-02-27] MEDS: [UNRECOGNIZED DRUG - OTHER] IV SCH ×6 (06:18)
[2017-02-27] MEDS: TPN ELECTROLYTES IV SCH ×6 (06:18)
[2017-02-27] MEDS: ZOVIRAX EXT SCH ×3 (06:18→21:51)
[2017-02-27] MEDS: CLINIMIX IV SCH ×6 (06:18)
[2017-02-27] MEDS: MVI IV SCH ×6 (06:18)
--- NOTE | 2017-02-27 07:28 | RAD ---
HISTORY: Cough, congestion Study: Chest one view Comparison: February 24, 2017 Findings: The patient is rotated to the left. The heart is upper limits normal in size. The warren are normal. T he lungs are free of acute infiltrates. No pleural effusions are identified. The bony thorax is unre markable. IMPRESSION: Lungs remain clear Reported By:
[2017-02-27] MEDS ORDERED: ALLEGRA ONE (08:21)
[2017-02-27] MEDS: VANCOMYCIN HCL 500 MG VIAL 750 MG in NS 250 ML IV 250 ML IV SCH ×2 (09:00→21:50)
[2017-02-27] MEDS: MEGACE PO SCH ×2 (09:01→21:50)
[2017-02-27] MEDS: DIFLUCAN PO SCH (09:01)
[2017-02-27] MEDS: TOPROL XL PO SCH (09:01)
[2017-02-27] MEDS: ROBITUSSIN DM PO SCH ×4 (09:01→21:50)
[2017-02-27] MEDS: PROTONIX TAB 40 MG PO SCH ×2 (09:02→21:50)
[2017-02-27] MEDS: NAMENDA TAB 10 MG PO SCH (09:02)
[2017-02-27] MEDS: PEPCID TAB 20 MG PO SCH (09:02)
[2017-02-27] MEDS: ALLEGRA PO SCH (09:02)
[2017-02-27] MEDS: ASPIRIN EC 81 MG PO SCH (09:02)
[2017-02-27] MEDS: COLACE CAP 100 MG PO SCH ×2 (09:02→21:50)
[2017-02-27] MEDS: FLONASE NASAL SPRAY ENOSTRIL SCH (09:02)
[2017-02-27] MEDS: NYSTATIN POWDER TOP SCH ×2 (09:03→21:51)
[2017-02-27] MEDS: LOVENOX INJ 30 MG SYR SC SCH ×2 (09:11→21:50)
[2017-02-27] MEDS: XOPENEX 1.25 MG/3 ML NEB SCH ×4 (09:14→21:50)
[2017-02-27] MEDS: DECADRON JET NEB NEB SCH ×4 (09:14→21:50)
[2017-02-27] MEDS: XYLOCAINE VISCOUS MT SCH ×4 (10:58→21:51)
[2017-02-27 11:33] LABS: BASOPHILS # (AUTO) 0.2 X10^3/uL (0.0-0.1); BASOPHILS % (AUTO) 0.9 % (0.2-1.0); EOSINOPHILS # (AUTO) 0.2 x10^3/uL (0.0-0.2); EOSINOPHILS % (AUTO) 1.1 % (0.9-2.9); HEMATOCRIT 30.6 % (42.0-54.0); MEAN CORPUSCULAR HEMOGLOBIN 29.8 pg (27.0-34.0); MEAN CORPUSCULAR HGB CONC 32.8 g/dL (33.0-35.0); MEAN PLATELET VOLUME 8.4 fL (7.4-11.0); MONOCYTES # (AUTO) 2.3 x10^3/uL (0.3-0.8); MONOCYTES % (AUTO) 11.5 % (0.0-13.0); NEUTROPHILS # (AUTO) 15.5 x10^3/uL (2.2-4.8); NEUTROPHILS % (AUTO) 76.5 % (42.0-75.0); PLATELET COUNT 539 X10^3/uL (150.0-450.0); RED BLOOD COUNT 3.36 X10^6/uL (4.7-6.0); RED CELL DISTRIBUTION WIDTH 16.9 % (11.6-16.5)
[2017-02-27 11:38] LABS: WHITE BLOOD COUNT 20.3 X10^3/uL (3.6-10.0)
[2017-02-27 11:46] LABS: ALANINE AMINOTRANSFERASE 44 Units/L (12-78); ALBUMIN 3.8 g/dL (3.4-5.0); ALKALINE PHOSPHATASE 91 Units/L (46-116); ASPARTATE AMINO TRANSFERASE 29 Units/L (15-37); BLOOD UREA NITROGEN 52 mg/dL (7-18); CALCIUM 8.9 mg/dL (8.5-10.1); CARBON DIOXIDE 17.3 mmol/L (21-32); CHLORIDE 109 mmol/L (98-107); COR NA(FOR HYPERGLY) 142 mmol/L (136-145); GLUCOSE 118 mg/dL (65-99); SODIUM 142 mmol/L (136-145); TOTAL PROTEIN 6.9 g/dL (6.4-8.2); eGFR BLACK RACES > 60 (>60); eGFR NON BLACK RACES 51 (>60)
[2017-02-27 11:50] LABS: BAND NEUTROPHILS % 8 % (0-10); PLATELET MORPHOLOGY COMMENT NORMAL (NORMAL); SMUDGE CELLS RARE
[2017-02-27] MEDS: SEROQUEL TAB 25 MG PO SCH (18:03)
[2017-02-27] MEDS: FLOMAX PO SCH (18:03)
[2017-02-27] MEDS ORDERED: SEROQUEL TAB 25 MG PO SCH (20:00)
[2017-02-27] MEDS: SNACK - Diabetic Appropriate PO SCH (21:49)
[2017-02-27] MEDS: ZOCOR TAB 40 MG PO SCH (21:50)
[2017-02-27] MEDS: SINGULAIR TAB 10 MG PO SCH (21:51)
[2017-02-28] MEDS: ZOSYN VIAL 3.375 GM 3.375 GM in NS 100 ML IV + SPIKE MINIBAG* 100 ML IV SCH ×3 (05:49→21:00)
[2017-02-28] MEDS: ZOVIRAX EXT SCH ×3 (05:50→21:00)
[2017-02-28] MEDS ORDERED: MVI IV SCH ×6 (07:00)
[2017-02-28] MEDS ORDERED: TPN ELECTROLYTES IV SCH ×6 (07:00)
[2017-02-28] MEDS ORDERED: CLINIMIX IV SCH ×6 (07:00)
[2017-02-28] MEDS ORDERED: [UNRECOGNIZED DRUG - OTHER] IV SCH ×6 (07:00)
[2017-02-28] MEDS: DECADRON JET NEB NEB SCH ×4 (08:36→20:59)
[2017-02-28] MEDS: XOPENEX 1.25 MG/3 ML NEB SCH ×4 (08:36→20:58)
[2017-02-28] MEDS ORDERED: ALLEGRA ONE (09:08)
[2017-02-28] MEDS: LOVENOX INJ 30 MG SYR SC SCH ×2 (11:09→20:50)
[2017-02-28] MEDS: ROBITUSSIN DM PO SCH ×4 (11:10→20:50)
[2017-02-28] MEDS: ALLEGRA PO SCH (11:11)
[2017-02-28] MEDS: DIFLUCAN PO SCH (11:11)
[2017-02-28] MEDS: PROTONIX TAB 40 MG PO SCH ×2 (11:11→20:51)
[2017-02-28] MEDS: COLACE CAP 100 MG PO SCH ×2 (11:11→20:51)
[2017-02-28] MEDS: PEPCID TAB 20 MG PO SCH (11:12)
[2017-02-28] MEDS: TOPROL XL PO SCH (11:12)
[2017-02-28] MEDS: ASPIRIN EC 81 MG PO SCH (11:12)
[2017-02-28] MEDS: MEGACE PO SCH ×2 (11:12→20:51)
[2017-02-28] MEDS: NAMENDA TAB 10 MG PO SCH (11:12)
[2017-02-28] MEDS: NYSTATIN POWDER TOP SCH ×2 (11:13→21:00)
[2017-02-28] MEDS: XYLOCAINE VISCOUS MT SCH ×4 (11:13→20:55)
[2017-02-28] MEDS: FLONASE NASAL SPRAY ENOSTRIL SCH (11:13)
[2017-02-28] MEDS: VANCOMYCIN HCL 500 MG VIAL 750 MG in NS 250 ML IV 250 ML IV SCH ×2 (11:36→13:09)
--- NOTE | 2017-02-28 11:44 | PCM.PROG ---
Progress Note - Progress Note for Day of Date: 02/28/17 - Subjective Subjective: PATIENT SITS UPRIGHT IN BED AND HAS JUST FINISHED BREAKFAST. PATIENT ATE APPROXIMATELY 50%. DAUGHTER AT BEDSIDE AND REPORTS PATIENT RESTED BETTER LAST NIGHT. PATIENT HAD NOT BEEN RESTING WELL AND HAD URINARY FREQUENCY DURING THE NIGHT DUE TO BPH. WE STARTED FLOMAX 0.8MG AT SUPPER ALONG WITH SEROQUEL AT SUPPER AND WE HAVE SEEN IMPROVEMENTS WITH REST. KLONOPIN WAS DISCONTINUED. PATIENT IS AWAKE AND ALERT THIS MORNING. HE IS LESS CONFUSED. APPETITE IS IMPROVING DAILY AND WE WILL DISCONTINUE TPN THROUGH THE WEEKEND AND MONITOR APPETITE. PATIENT CONTINUES IV THERAPY FOR MRSA PNEUMONIA WITH ZOSYN AND VANCOMYCIN IV. LUNGS ARE NOTED WITH IMPROVEMENT ON AUSCULTATION. PATIENT IS TOLERATING PHYSICAL THERAPY VERY WELL AND IS SHOWING INCREASING STRENGTH AND MOBILITY. WE WILL CONTINUE WITH CURRENT TREATMENT AND CONTINUE TO MONITOR PROGRESS. - Past Medical Family Social History Past Med/Fam/Surg Hx: No changes since H&P Allergies: Allergies Codeine Allergy (Verified 02/10/17 16:02) - Review of Systems ROS: No change since H&P - Vital Signs and I&O's Vital Signs: Temperature 98.8 F Pulse Rate [Right Brachial] 104 Pulse Rate [Left Brachial] 96 Pulse Rate 84 Respiratory Rate 20 Blood Pressure [Right Calf] 160/70 Blood Pressure [Right Arm] 125/75 Blood Pressure [Left Arm] 138/69 Blood Pressure 129/69 O2 Sat by Pulse Oximetry 94 Intake and Output: Intake & Output 02/25/17 02/26/17 02/27/17 02/28/17 11:59 11:59 11:59 11:59 Intake Total 2040 3350 1980 720 Output Total 100 7331 259 2213 Balance 1940 2125 1205 -630 - Physical Exam Oriented: Normal, Time, Person, Place Eyes: Normal. negative: Blurred Vision, Diplopia, Discharge, Pain, Redness, Photophobia Ear: Normal. negative: Swelling, Ecchymosis, Hemotypanum, Abrasion, Laceration Nose: Normal. negative: Injected, Discharge, Blood Throat: Normal. negative: Tonsillar Hypertrophy, Red, Exudate Respiratory: Generalized, Diminished Cardiovascular: Normal. negative: Murmur, Edema : Frequency. negative: Dysuria, Hematuria, Discharge, Testicular Pain Auscultation: Bowel Sounds: Normal. negative: Bruit Palpation: Normal. negative: Spleen Enlarged, Liver Enlarged, Mass Pulsatile Tenderness: Normal. negative: Rebound, Guarding, Rigidity Skin: Normal. negative: Diaphoresis, Wound, Bruising, Ecchymosis Musculoskeletal: Instability Psychiatric: Normal Mood Description: Calm, Appropriate Affect: Normal Speech Pattern: Clear, Appropriate - Laboratory and Diagnostics Result Diagrams: 02/27/17 11:15 02/27/17 11:15 Labs: Laboratory WBC 20.3 X10^3/uL (3.6-10.0) H* 02/27/17 11:15 RBC 3.36 X10^6/uL (4.7-6.0) L 02/27/17 11:15 Hgb 10.0 g/dL (13.5-18.0) L 02/27/17 11:15 Hct 30.6 % (42.0-54.0) L 02/27/17 11:15 MCV 91.0 fL (80.0-100.0) 02/27/17 11:15 MCH 29.8 pg (27.0-34.0) 02/27/17 11:15 MCHC 32.8 g/dL (33.0-35.0) L 02/27/17 11:15 RDW 16.9 % (11.6-16.5) H 02/27/17 11:15 Plt Count 539 X10^3/uL (150.0-450.0) H 02/27/17 11:15 Plt Count Comment Adequate (ADEQUATE) 02/27/17 11:15 MPV 8.4 fL (7.4-11.0) 02/27/17 11:15 Neut % 76.5 % (42.0-75.0) H 02/27/17 11:15 Lymph % 10.0 % (21.0-51.0) L 02/27/17 11:15 Rains % 11.5 % (0.0-13.0) 02/27/17 11:15 Eos % 1.1 % (0.9-2.9) 02/27/17 11:15 Baso % 0.9 % (0.2-1.0) 02/27/17 11:15 Neut # 15.5 x10^3/uL (2.2-4.8) H 02/27/17 11:15 Lymph # 2.0 X10^3/uL (1.3-2.9) 02/27/17 11:15 Rains # 2.3 x10^3/uL (0.3-0.8) H 02/27/17 11:15 Eos # 0.2 x10^3/uL (0.0-0.2) 02/27/17 11:15 Baso # 0.2 X10^3/uL (0.0-0.1) H 02/27/17 11:15 Absolute Nucleated RBC 0.0 /100WBC 02/27/17 11:15 Total Counted 100 02/27/17 11:15 Neutrophils % (Manual) 65 % (39-76) 02/27/17 11:15 Band Neutrophils % 8 % (0-10) 02/27/17 11:15 Lymphocytes % (Manual) 20 % (13-43) 02/27/17 11:15 Monocytes % (Manual) 5 % (4-9) 02/27/17 11:15 Eosinophils % (Manual) 2 % (0-6) 02/27/17 11:15 Smudge Cells Rare 02/27/17 11:15 Plt Morphology Comment Normal (NORMAL) 02/27/17 11:15 RBC Morphology Normal (NORMAL) 02/27/17 11:15 Sodium 142 mmol/L (136-145) 02/27/17 11:15 Corrected Sodium 142 mmol/L (136-145) 02/27/17 11:15 Potassium 4.6 mmol/L (3.5-5.1) 02/27/17 11:15 Chloride 109 mmol/L (98-107) H 02/27/17 11:15 Carbon Dioxide 17.3 mmol/L (21-32) L 02/27/17 11:15 BUN 52 mg/dL (7-18) H 02/27/17 11:15 Creatinine 1.40 mg/dL (0.70-1.30) H 02/27/17 11:15 Est GFR (MDRD) Af Amer > 60 (>60) 02/27/17 11:15 Est GFR (MDRD) Non-Af 51 (>60) L 02/27/17 11:15 Glucose 118 mg/dL (65-99) H 02/27/17 11:15 Calcium 8.9 mg/dL (8.5-10.1) 02/27/17 11:15 Corrected Calcium TNP 02/27/17 11:15 Total Bilirubin 0.40 mg/dL (0.2-1.0) 02/27/17 11:15 AST 29 Units/L (15-37) 02/27/17 11:15 ALT 44 Units/L (12-78) 02/27/17 11:15 Alkaline Phosphatase 91 Units/L (46-116) 02/27/17 11:15 Total Protein 6.9 g/dL (6.4-8.2) 02/27/17 11:15 Albumin 3.8 g/dL (3.4-5.0) 02/27/17 11:15 Globulin 3.1 g/dL (2.5-4.5) 02/27/17 11:15 Albumin/Globulin Ratio 1.2 Ratio (1.1-2.1) 02/27/17 11:15 Vancomycin Trough 10.0 ug/mL (15-20) L 02/26/17 08:20 Random Vancomycin 21.3 ug/mL 02/28/17 08:20 - Plan (1) MRSA pneumonia Status: Acute Qualifiers: Laterality: bilateral Lung location: lower lobe of lung Qualified Code(s) : J15.212 - Pneumonia due to Methicillin resistant Staphylococcus aureus Plan: CONTINUE IV VANCOMYCIN AND IV ZOSYN, MONITOR VITAL SIGNS, LABS, AND CHEST XRAY. (2) Generalized weakness Status: Acute Plan: CONTINUE PHYSICAL THERAPY, MONITOR PROGRESS. (3) Arthritis Status: Chronic (4) Back pain Status: Chronic Qualifiers: Back pain location: low back pain Chronicity: chronic Back pain laterality: bilateral Sciatica presence: without sciatica Sciatica laterality: S Qualified Code(s): M54.5 - Low back pain; G89.29 - Other chronic pain (5) Dementia Status: Chronic Qualifiers: Dementia type: vascular dementia Alzheimer's disease onset: A Dementia behavioral disturbance: without behavioral disturbance Qualified Code(s): F01.50 - Vascular dementia without behavioral disturbance
[2017-02-28] MEDS ORDERED: NS 250 ML IV 250 ML IV ONE ×2 (17:04→20:47)
[2017-02-28] MEDS: SEROQUEL TAB 25 MG PO SCH (17:19)
[2017-02-28] MEDS: AVODART PO SCH (17:19)
[2017-02-28] MEDS: FLOMAX PO SCH (17:20)
[2017-02-28] MEDS: SINGULAIR TAB 10 MG PO SCH (20:51)
[2017-02-28] MEDS: TYLENOL 325 MG TAB PO PRN (20:51)
[2017-02-28] MEDS: SNACK - Diabetic Appropriate PO SCH (20:56)
[2017-02-28] MEDS: ZOCOR TAB 40 MG PO SCH (21:00)
[2017-03-01] MEDS: ZOSYN VIAL 3.375 GM 3.375 GM in NS 100 ML IV + SPIKE MINIBAG* 100 ML IV SCH ×3 (05:59→21:03)
[2017-03-01] MEDS: VANCOMYCIN HCL 500 MG VIAL 750 MG in NS 250 ML IV 250 ML IV SCH (06:00)
[2017-03-01] MEDS: ZOVIRAX EXT SCH ×3 (06:00→21:07)
[2017-03-01] MEDS ORDERED: ALLEGRA ONE (08:42)
[2017-03-01] MEDS: XOPENEX 1.25 MG/3 ML NEB SCH ×4 (08:55→20:36)
[2017-03-01] MEDS: DECADRON JET NEB NEB SCH ×4 (08:55→20:36)
[2017-03-01] MEDS: MEGACE PO SCH ×2 (09:55→21:02)
[2017-03-01] MEDS: ALLEGRA PO SCH (09:55)
[2017-03-01] MEDS: PEPCID TAB 20 MG PO SCH (09:55)
[2017-03-01] MEDS: ASPIRIN EC 81 MG PO SCH (09:55)
[2017-03-01] MEDS: ROBITUSSIN DM PO SCH ×4 (09:55→21:02)
[2017-03-01] MEDS: LOVENOX INJ 30 MG SYR SC SCH ×2 (09:55→21:03)
[2017-03-01] MEDS: COLACE CAP 100 MG PO SCH ×2 (09:55→21:03)
[2017-03-01] MEDS: NAMENDA TAB 10 MG PO SCH (09:56)
[2017-03-01] MEDS: TOPROL XL PO SCH (09:56)
[2017-03-01] MEDS: FLONASE NASAL SPRAY ENOSTRIL SCH (09:56)
[2017-03-01] MEDS: PROTONIX TAB 40 MG PO SCH ×2 (09:56→21:02)
[2017-03-01] MEDS: NYSTATIN POWDER TOP SCH ×2 (09:56→21:07)
[2017-03-01] MEDS: DIFLUCAN PO SCH (09:56)
[2017-03-01] MEDS: XYLOCAINE VISCOUS MT SCH ×4 (09:57→21:06)
[2017-03-01] MEDS: SEROQUEL TAB 25 MG PO SCH (17:40)
[2017-03-01] MEDS: AVODART PO SCH (17:40)
[2017-03-01] MEDS: FLOMAX PO SCH (17:41)
[2017-03-01] MEDS: ZOCOR TAB 40 MG PO SCH (21:02)
[2017-03-01] MEDS: SINGULAIR TAB 10 MG PO SCH (21:03)
[2017-03-01] MEDS: SNACK - Diabetic Appropriate PO SCH (21:07)
[2017-03-02] MEDS: VANCOMYCIN HCL 500 MG VIAL 750 MG in NS 250 ML IV 250 ML IV SCH ×2 (05:34→22:10)
[2017-03-02] MEDS: ZOSYN VIAL 3.375 GM 3.375 GM in NS 100 ML IV + SPIKE MINIBAG* 100 ML IV SCH ×3 (05:35→20:59)
[2017-03-02] MEDS: DECADRON JET NEB NEB SCH ×3 (08:19→20:53)
[2017-03-02] MEDS: XOPENEX 1.25 MG/3 ML NEB SCH ×4 (08:19→20:53)
[2017-03-02] MEDS ORDERED: ALLEGRA ONE (09:13)
[2017-03-02] MEDS: LOVENOX INJ 30 MG SYR SC SCH ×2 (09:46→20:48)
[2017-03-02] MEDS: TOPROL XL PO SCH (09:47)
[2017-03-02] MEDS: PEPCID TAB 20 MG PO SCH (09:47)
[2017-03-02] MEDS: FLONASE NASAL SPRAY ENOSTRIL SCH (09:47)
[2017-03-02] MEDS: NAMENDA TAB 10 MG PO SCH (09:47)
[2017-03-02] MEDS: COLACE CAP 100 MG PO SCH ×2 (09:47→20:37)
[2017-03-02] MEDS: PROTONIX TAB 40 MG PO SCH ×2 (09:47→20:37)
[2017-03-02] MEDS: DIFLUCAN PO SCH (09:47)
[2017-03-02] MEDS: ALLEGRA PO SCH (09:47)
[2017-03-02] MEDS: ASPIRIN EC 81 MG PO SCH (09:47)
[2017-03-02] MEDS: MEGACE PO SCH ×2 (09:47→20:37)
[2017-03-02] MEDS: ROBITUSSIN DM PO SCH ×4 (09:48→20:37)
[2017-03-02] MEDS: NYSTATIN POWDER TOP SCH ×2 (09:48→21:00)
[2017-03-02] MEDS: XYLOCAINE VISCOUS MT SCH ×4 (09:49→20:59)
[2017-03-02] MEDS: ZOVIRAX EXT SCH ×3 (13:24→20:59)
[2017-03-02] MEDS: FLOMAX PO SCH (18:35)
[2017-03-02] MEDS: AVODART PO SCH (18:35)
[2017-03-02] MEDS: SEROQUEL TAB 25 MG PO SCH (18:36)
[2017-03-02] MEDS: ZOCOR TAB 40 MG PO SCH (20:37)
[2017-03-02] MEDS: SINGULAIR TAB 10 MG PO SCH (20:37)
[2017-03-02] MEDS: SNACK - Diabetic Appropriate PO SCH (20:48)
--- NOTE | 2017-03-03 05:59 | RAD ---
AP Chest Indication: cough with congestion Comparison: 02/27/2017 Findings: The trachea is midline. The cardiac silhouette is borderline enlarged. The lungs are clear without focal infiltrate or effusion. The bony thorax is unremarkable. IMPRESSION: 1. No acute cardiopulmonary abnormality. Reported By:
[2017-03-03] MEDS: ZOSYN VIAL 3.375 GM 3.375 GM in NS 100 ML IV + SPIKE MINIBAG* 100 ML IV SCH ×3 (06:04→21:11)
[2017-03-03] MEDS: ZOVIRAX EXT SCH ×3 (06:04→21:12)
[2017-03-03] MEDS: XOPENEX 1.25 MG/3 ML NEB SCH ×4 (08:09→21:18)
[2017-03-03] MEDS: DECADRON JET NEB NEB SCH ×4 (08:10→21:18)
[2017-03-03] MEDS ORDERED: ALLEGRA ONE (09:04)
[2017-03-03] MEDS: LOVENOX INJ 30 MG SYR SC SCH ×2 (09:22→21:12)
[2017-03-03] MEDS: MEGACE PO SCH ×2 (09:23→21:10)
[2017-03-03] MEDS: TOPROL XL PO SCH (09:23)
[2017-03-03] MEDS: DIFLUCAN PO SCH (09:23)
[2017-03-03] MEDS: COLACE CAP 100 MG PO SCH ×2 (09:24→21:10)
[2017-03-03] MEDS: NAMENDA TAB 10 MG PO SCH (09:24)
[2017-03-03] MEDS: ASPIRIN EC 81 MG PO SCH (09:24)
[2017-03-03] MEDS: PROTONIX TAB 40 MG PO SCH ×2 (09:24→21:10)
[2017-03-03] MEDS: PEPCID TAB 20 MG PO SCH (09:24)
[2017-03-03] MEDS: XYLOCAINE VISCOUS MT SCH ×4 (09:24→21:11)
[2017-03-03] MEDS: ALLEGRA PO SCH (09:24)
[2017-03-03] MEDS: ROBITUSSIN DM PO SCH ×5 (09:25→21:10)
[2017-03-03] MEDS: NYSTATIN POWDER TOP SCH ×2 (09:25→21:12)
[2017-03-03] MEDS: FLONASE NASAL SPRAY ENOSTRIL SCH (09:25)
[2017-03-03 12:04] LABS: BASOPHILS # (AUTO) 0.1 X10^3/uL (0.0-0.1); BASOPHILS % (AUTO) 0.6 % (0.2-1.0); EOSINOPHILS # (AUTO) 0.1 x10^3/uL (0.0-0.2); EOSINOPHILS % (AUTO) 0.4 % (0.9-2.9); HEMATOCRIT 30.9 % (42.0-54.0); HEMOGLOBIN 10.2 g/dL (13.5-18.0); LYMPHOCYTES # (AUTO) 1.6 X10^3/uL (1.3-2.9); LYMPHOCYTES % (AUTO) 8.6 % (21.0-51.0); MEAN CORPUSCULAR HGB CONC 33.2 g/dL (33.0-35.0); MEAN CORPUSCULAR VOLUME 90.4 fL (80.0-100.0); MEAN PLATELET VOLUME 8.7 fL (7.4-11.0); MONOCYTES # (AUTO) 2.4 x10^3/uL (0.3-0.8); MONOCYTES % (AUTO) 12.7 % (0.0-13.0); NEUTROPHILS # (AUTO) 14.7 x10^3/uL (2.2-4.8); NEUTROPHILS % (AUTO) 77.7 % (42.0-75.0); PLATELET COUNT 420 X10^3/uL (150.0-450.0); RED BLOOD COUNT 3.41 X10^6/uL (4.7-6.0); RED CELL DISTRIBUTION WIDTH 17.5 % (11.6-16.5); WHITE BLOOD COUNT 18.9 X10^3/uL (3.6-10.0)
[2017-03-03 12:20] LABS: BAND NEUTROPHILS % 3 % (0-10)
[2017-03-03 12:21] LABS: PLATELET MORPHOLOGY COMMENT NORMAL (NORMAL)
[2017-03-03 12:26] LABS: ALANINE AMINOTRANSFERASE 39 Units/L (12-78); ALBUMIN 3.4 g/dL (3.4-5.0); ALKALINE PHOSPHATASE 89 Units/L (46-116); ASPARTATE AMINO TRANSFERASE 27 Units/L (15-37); BLOOD UREA NITROGEN 34 mg/dL (7-18); CALCIUM 8.5 mg/dL (8.5-10.1); CARBON DIOXIDE 19.3 mmol/L (21-32); CHLORIDE 109 mmol/L (98-107); CREATININE 1.32 mg/dL (0.70-1.30); CREATININE 1.38 mg/dL (0.70-1.30); GLUCOSE 107 mg/dL (65-99); SODIUM 142 mmol/L (136-145); TOTAL PROTEIN 6.7 g/dL (6.4-8.2); eGFR BLACK RACES > 60 (>60); eGFR NON BLACK RACES 55 (>60)
[2017-03-03] MEDS: VANCOMYCIN HCL 500 MG VIAL 750 MG in NS 250 ML IV 250 ML IV SCH (13:05)
[2017-03-03] MEDS: AVODART PO SCH (16:59)
[2017-03-03] MEDS: SEROQUEL TAB 25 MG PO SCH (17:00)
[2017-03-03] MEDS: FLOMAX PO SCH (17:00)
[2017-03-03] MEDS: SNACK - Diabetic Appropriate PO SCH (20:43)
[2017-03-03] MEDS: SINGULAIR TAB 10 MG PO SCH (21:09)
[2017-03-03] MEDS: ZOCOR TAB 40 MG PO SCH (21:10)
[2017-03-04] MEDS: VANCOMYCIN HCL 500 MG VIAL 750 MG in NS 250 ML IV 250 ML IV SCH (05:52)
[2017-03-04] MEDS: ZOSYN VIAL 3.375 GM 3.375 GM in NS 100 ML IV + SPIKE MINIBAG* 100 ML IV SCH ×3 (05:56→21:44)
[2017-03-04] MEDS: ZOVIRAX EXT SCH ×3 (05:57→21:46)
[2017-03-04] MEDS ORDERED: ALLEGRA ONE (08:34)
[2017-03-04] MEDS: ROBITUSSIN DM PO SCH ×5 (08:38→21:43)
[2017-03-04] MEDS: LOVENOX INJ 30 MG SYR SC SCH ×2 (08:38→21:44)
[2017-03-04] MEDS: ALLEGRA PO SCH (08:39)
[2017-03-04] MEDS: NAMENDA TAB 10 MG PO SCH (08:39)
[2017-03-04] MEDS: PEPCID TAB 20 MG PO SCH (08:39)
[2017-03-04] MEDS: COLACE CAP 100 MG PO SCH ×2 (08:39→21:45)
[2017-03-04] MEDS: DIFLUCAN PO SCH (08:39)
[2017-03-04] MEDS: PROTONIX TAB 40 MG PO SCH ×2 (08:39→21:45)
[2017-03-04] MEDS: ASPIRIN EC 81 MG PO SCH (08:40)
[2017-03-04] MEDS: MEGACE PO SCH ×2 (08:40→21:45)
[2017-03-04] MEDS: XYLOCAINE VISCOUS MT SCH ×4 (08:40→21:46)
[2017-03-04] MEDS: TOPROL XL PO SCH (08:40)
[2017-03-04] MEDS: FLONASE NASAL SPRAY ENOSTRIL SCH (08:41)
[2017-03-04] MEDS: NYSTATIN POWDER TOP SCH ×2 (08:41→21:46)
[2017-03-04] MEDS: XOPENEX 1.25 MG/3 ML NEB SCH ×4 (08:58→20:15)
[2017-03-04] MEDS: DECADRON JET NEB NEB SCH ×4 (08:58→20:14)
[2017-03-04] MEDS: SEROQUEL TAB 25 MG PO SCH (18:22)
[2017-03-04] MEDS: FLOMAX PO SCH (18:22)
[2017-03-04] MEDS: AVODART PO SCH (18:22)
[2017-03-04] MEDS ORDERED: DUONEB 0.5 MG/3 MG ONE (19:52)
[2017-03-04] MEDS: SINGULAIR TAB 10 MG PO SCH (21:45)
[2017-03-04] MEDS: ZOCOR TAB 40 MG PO SCH (21:45)
[2017-03-05] MEDS: VANCOMYCIN HCL 500 MG VIAL 750 MG in NS 250 ML IV 250 ML IV SCH ×2 (00:44→17:20)
[2017-03-05] MEDS: ZOSYN VIAL 3.375 GM 3.375 GM in NS 100 ML IV + SPIKE MINIBAG* 100 ML IV SCH ×3 (05:51→22:51)
[2017-03-05] MEDS: ZOVIRAX EXT SCH ×3 (05:56→22:55)
[2017-03-05] MEDS: DECADRON JET NEB NEB SCH ×4 (08:34→20:05)
[2017-03-05] MEDS: XOPENEX 1.25 MG/3 ML NEB SCH ×4 (08:34→20:05)
[2017-03-05] MEDS ORDERED: ALLEGRA ONE (09:28)
[2017-03-05] MEDS: ASPIRIN EC 81 MG PO SCH (09:36)
[2017-03-05] MEDS: LOVENOX INJ 30 MG SYR SC SCH ×2 (09:36→22:50)
[2017-03-05] MEDS: ROBITUSSIN DM PO SCH ×4 (09:36→22:53)
[2017-03-05] MEDS: COLACE CAP 100 MG PO SCH ×3 (09:36→22:54)
[2017-03-05] MEDS: XYLOCAINE VISCOUS MT SCH ×4 (09:37→22:54)
[2017-03-05] MEDS: TOPROL XL PO SCH (09:37)
[2017-03-05] MEDS: PEPCID TAB 20 MG PO SCH (09:37)
[2017-03-05] MEDS: MEGACE PO SCH ×2 (09:37→23:01)
[2017-03-05] MEDS: DIFLUCAN PO SCH (09:37)
[2017-03-05] MEDS: NAMENDA TAB 10 MG PO SCH (09:37)
[2017-03-05] MEDS: ALLEGRA PO SCH (09:37)
[2017-03-05] MEDS: FLONASE NASAL SPRAY ENOSTRIL SCH (09:38)
[2017-03-05] MEDS: PROTONIX TAB 40 MG PO SCH ×2 (09:38→22:50)
[2017-03-05] MEDS: NYSTATIN POWDER TOP SCH ×2 (09:39→22:55)
[2017-03-05] MEDS ORDERED: NS 250 ML IV 250 ML IV ONE (13:35)
[2017-03-05] MEDS: AVODART PO SCH (17:19)
[2017-03-05] MEDS: FLOMAX PO SCH (17:19)
[2017-03-05] MEDS: SEROQUEL TAB 25 MG PO SCH (17:19)
[2017-03-05] MEDS: SINGULAIR TAB 10 MG PO SCH (22:50)
[2017-03-05] MEDS: ZOCOR TAB 40 MG PO SCH (22:50)
[2017-03-06 05:49] LABS: BASOPHILS % (AUTO) 0.4 % (0.2-1.0); EOSINOPHILS % (AUTO) 0.4 % (0.9-2.9); HEMATOCRIT 27.9 % (42.0-54.0); HEMOGLOBIN 9.3 g/dL (13.5-18.0); LYMPHOCYTES # (AUTO) 0.9 X10^3/uL (1.3-2.9); MEAN CORPUSCULAR HEMOGLOBIN 30.5 pg (27.0-34.0); MEAN CORPUSCULAR HGB CONC 33.4 g/dL (33.0-35.0); MEAN CORPUSCULAR VOLUME 91.2 fL (80.0-100.0); MEAN PLATELET VOLUME 9.6 fL (7.4-11.0); MONOCYTES # (AUTO) 1.2 x10^3/uL (0.3-0.8); MONOCYTES % (AUTO) 10.1 % (0.0-13.0); NEUTROPHILS # (AUTO) 9.6 x10^3/uL (2.2-4.8); NEUTROPHILS % (AUTO) 81.1 % (42.0-75.0); PLATELET COUNT 281 X10^3/uL (150.0-450.0); RED BLOOD COUNT 3.05 X10^6/uL (4.7-6.0); RED CELL DISTRIBUTION WIDTH 17.3 % (11.6-16.5); WHITE BLOOD COUNT 11.9 X10^3/uL (3.6-10.0)
[2017-03-06 05:50] LABS: ALANINE AMINOTRANSFERASE 41 Units/L (12-78); ALBUMIN 2.9 g/dL (3.4-5.0); ALKALINE PHOSPHATASE 81 Units/L (46-116); ASPARTATE AMINO TRANSFERASE 20 Units/L (15-37); BLOOD UREA NITROGEN 32 mg/dL (7-18); CALCIUM 8.2 mg/dL (8.5-10.1); CARBON DIOXIDE 19.8 mmol/L (21-32); CHLORIDE 110 mmol/L (98-107); COR CA(FOR HYPOALB) 9.1 mg/dL (8.5-10.1); COR NA(FOR HYPERGLY) 143 mmol/L (136-145); CREATININE 1.19 mg/dL (0.70-1.30); GLUCOSE 149 mg/dL (65-99); SODIUM 142 mmol/L (136-145); TOTAL PROTEIN 5.9 g/dL (6.4-8.2); eGFR BLACK RACES > 60 (>60); eGFR NON BLACK RACES > 60 (>60)
[2017-03-06] MEDS: ZOSYN VIAL 3.375 GM 3.375 GM in NS 100 ML IV + SPIKE MINIBAG* 100 ML IV SCH ×2 (05:53→18:00)
[2017-03-06] MEDS: ZOVIRAX EXT SCH ×3 (06:06→21:38)
[2017-03-06 07:06] LABS: BAND NEUTROPHILS % 7 % (0-10); PLATELET MORPHOLOGY COMMENT NORMAL (NORMAL)
[2017-03-06] MEDS: XOPENEX 1.25 MG/3 ML NEB SCH ×4 (08:56→20:41)
[2017-03-06] MEDS: DECADRON JET NEB NEB SCH ×4 (08:56→20:41)
[2017-03-06] MEDS ORDERED: ALLEGRA ONE (09:04)
[2017-03-06] MEDS: COLACE CAP 100 MG PO SCH ×2 (09:07→21:39)
[2017-03-06] MEDS: ALLEGRA PO SCH (09:09)
[2017-03-06] MEDS: DIFLUCAN PO SCH (09:09)
[2017-03-06] MEDS: ASPIRIN EC 81 MG PO SCH (09:09)
[2017-03-06] MEDS: PEPCID TAB 20 MG PO SCH (09:09)
[2017-03-06] MEDS: TOPROL XL PO SCH (09:09)
[2017-03-06] MEDS: MEGACE PO SCH ×2 (09:09→21:37)
[2017-03-06] MEDS: LOVENOX INJ 30 MG SYR SC SCH ×2 (09:09→21:36)
[2017-03-06] MEDS: NAMENDA TAB 10 MG PO SCH (09:09)
[2017-03-06] MEDS: PROTONIX TAB 40 MG PO SCH ×2 (09:09→21:37)
[2017-03-06] MEDS: XYLOCAINE VISCOUS MT SCH ×4 (09:10→21:36)
[2017-03-06] MEDS: ROBITUSSIN DM PO SCH ×4 (09:10→21:36)
[2017-03-06] MEDS: FLONASE NASAL SPRAY ENOSTRIL SCH (09:11)
[2017-03-06] MEDS: NYSTATIN POWDER TOP SCH ×2 (09:20→21:39)
--- NOTE | 2017-03-06 11:59 | PCM.PROG ---
Progress Note - Progress Note for Day of Date: 03/05/17 - Subjective Subjective: PATIENT LOOKS WELL THIS MORNING AND REPORTS HE FEELS WELL. DAUGHTER AT BEDSIDE. PATIENT IS PROGRESSING WITH PHYSICAL THERAPY NICELY. PATIENT CURRENTLY REQUIRES NO CUES FOR SAFETY SEQUENCING WHEN PERFORMING TREATMENTS OR AMBULATING. PATIENT IS TOLERATING TREATMENT WELL AND PHYSICAL THERAPY REPORTS PATIENT IS ABLE TO AMBULATE AND INCREASE DISTANCE EACH DAY. PATIENT IS SHOWING INCREASING STRENTH AND MOBILITY. NEXT GOAL OF PHYSICAL THERAPY IS TO HAVE PATIENT AMBULATE ON AN UNEVEN SURFACE AND MAINTAIN STEADY GAIT. TPN WAS DISCONTINUED AND PATIENT'S APPETITE HAS IMPROVED. HE CONTINUES ON IV THERAPY OF VANCOMYCIN AND IV ZOSYN FOR MRSA PNEUMONIA. PATIENT IS RESTING BETTER AT NIGHT, HOWEVER; CONTINUES WITH URINARY FREQUENCY DUE TO BPH. LUNGS ARE DIMINISHED, BUT CLEAR ON AUSCULTATION. WE WILL CONTINUE WITH CURRENT TREATMENT AND CONTINUE TO MONITOR PROGRESS. - Past Medical Family Social History Past Med/Fam/Surg Hx: No changes since H&P Allergies: Allergies Codeine Allergy (Verified 02/10/17 16:02) - Review of Systems ROS: No change since H&P - Vital Signs and I&O's Vital Signs: Temperature 97.7 F Pulse Rate [Right Brachial] 89 Pulse Rate [Left Brachial] 74 Pulse Rate 68 Respiratory Rate 18 Blood Pressure [Right Calf] 129/65 Blood Pressure [Right Arm] 146/73 Blood Pressure [Left Arm] 138/69 Blood Pressure 129/69 O2 Sat by Pulse Oximetry 98 Intake and Output: Intake & Output 03/03/17 03/04/17 03/05/17 03/06/17 11:59 11:59 11:59 11:59 Intake Total 1284 1675 2062 1160 Output Total 460 Balance 1284 1215 2062 1160 - Physical Exam Oriented: Normal, Time, Person, Place Eyes: Normal. negative: Blurred Vision, Diplopia, Discharge, Pain, Redness, Photophobia Ear: Normal. negative: Swelling, Ecchymosis, Hemotypanum, Abrasion, Laceration Nose: Normal. negative: Injected, Discharge, Blood Throat: Normal. negative: Tonsillar Hypertrophy, Red, Exudate Respiratory: Generalized, Diminished Cardiovascular: Normal. negative: Murmur, Edema : Frequency. negative: Dysuria, Hematuria, Discharge, Testicular Pain Auscultation: Bowel Sounds: Normal. negative: Bruit Palpation: Normal. negative: Spleen Enlarged, Liver Enlarged, Mass Pulsatile Tenderness: Normal. negative: Rebound, Guarding, Rigidity Skin: Normal. negative: Diaphoresis, Wound, Bruising, Ecchymosis Musculoskeletal: Instability Psychiatric: Normal Mood Description: Calm, Appropriate Affect: Normal Speech Pattern: Clear, Appropriate - Laboratory and Diagnostics Result Diagrams: 03/06/17 03:45 03/06/17 03:45 Labs: Laboratory WBC 11.9 X10^3/uL (3.6-10.0) H 03/06/17 03:45 RBC 3.05 X10^6/uL (4.7-6.0) L 03/06/17 03:45 Hgb 9.3 g/dL (13.5-18.0) L 03/06/17 03:45 Hct 27.9 % (42.0-54.0) L 03/06/17 03:45 MCV 91.2 fL (80.0-100.0) 03/06/17 03:45 MCH 30.5 pg (27.0-34.0) 03/06/17 03:45 MCHC 33.4 g/dL (33.0-35.0) 03/06/17 03:45 RDW 17.3 % (11.6-16.5) H 03/06/17 03:45 Plt Count 281 X10^3/uL (150.0-450.0) 03/06/17 03:45 Plt Count Comment Adequate (ADEQUATE) 03/06/17 03:45 MPV 9.6 fL (7.4-11.0) 03/06/17 03:45 Neut % 81.1 % (42.0-75.0) H 03/06/17 03:45 Lymph % 8.0 % (21.0-51.0) L 03/06/17 03:45 Sterling % 10.1 % (0.0-13.0) 03/06/17 03:45 Eos % 0.4 % (0.9-2.9) L 03/06/17 03:45 Baso % 0.4 % (0.2-1.0) 03/06/17 03:45 Neut # 9.6 x10^3/uL (2.2-4.8) H 03/06/17 03:45 Lymph # 0.9 X10^3/uL (1.3-2.9) L 03/06/17 03:45 Sterling # 1.2 x10^3/uL (0.3-0.8) H 03/06/17 03:45 Eos # 0.0 x10^3/uL (0.0-0.2) 03/06/17 03:45 Baso # 0.0 X10^3/uL (0.0-0.1) 03/06/17 03:45 Absolute Nucleated RBC 0.0 /100WBC 03/06/17 03:45 Total Counted 100 03/06/17 03:45 Neutrophils % (Manual) 83 % (39-76) H 03/06/17 03:45 Band Neutrophils % 7 % (0-10) 03/06/17 03:45 Lymphocytes % (Manual) 8 % (13-43) L 03/06/17 03:45 Monocytes % (Manual) 2 % (4-9) L 03/06/17 03:45 Eosinophils % (Manual) 1 % (0-6) 03/03/17 11:55 Smudge Cells Rare 02/27/17 11:15 Plt Morphology Comment Normal (NORMAL) 03/06/17 03:45 RBC Morphology Normal (NORMAL) 03/06/17 03:45 Sodium 142 mmol/L (136-145) 03/06/17 03:45 Corrected Sodium 143 mmol/L (136-145) 03/06/17 03:45 Potassium 3.9 mmol/L (3.5-5.1) 03/06/17 03:45 Chloride 110 mmol/L (98-107) H 03/06/17 03:45 Carbon Dioxide 19.8 mmol/L (21-32) L 03/06/17 03:45 BUN 32 mg/dL (7-18) H 03/06/17 03:45 Creatinine 1.19 mg/dL (0.70-1.30) 03/06/17 03:45 Est GFR (MDRD) Af Amer > 60 (>60) 03/06/17 03:45 Est GFR (MDRD) Non-Af > 60 (>60) 03/06/17 03:45 Glucose 149 mg/dL (65-99) H 03/06/17 03:45 Calcium 8.2 mg/dL (8.5-10.1) L 03/06/17 03:45 Corrected Calcium 9.1 mg/dL (8.5-10.1) 03/06/17 03:45 Total Bilirubin 0.20 mg/dL (0.2-1.0) 03/06/17 03:45 AST 20 Units/L (15-37) 03/06/17 03:45 ALT 41 Units/L (12-78) 03/06/17 03:45 Alkaline Phosphatase 81 Units/L (46-116) 03/06/17 03:45 Total Protein 5.9 g/dL (6.4-8.2) L 03/06/17 03:45 Albumin 2.9 g/dL (3.4-5.0) L 03/06/17 03:45 Globulin 3.0 g/dL (2.5-4.5) 03/06/17 03:45 Albumin/Globulin Ratio 1.0 Ratio (1.1-2.1) L 03/06/17 03:45 Vancomycin Trough 13.0 ug/mL (15-20) L 03/03/17 11:55 Random Vancomycin 21.3 ug/mL 02/28/17 08:20 - Plan (1) MRSA pneumonia Status: Acute Qualifiers: Laterality: bilateral Lung location: lower lobe of lung Qualified Code(s) : J15.212 - Pneumonia due to Methicillin resistant Staphylococcus aureus Plan: CONTINUE IV VANCOMYCIN AND IV ZOSYN, MONITOR VITAL SIGNS, LABS, AND CHEST XRAY. (2) Generalized weakness Status: Acute Plan: CONTINUE PHYSICAL THERAPY, MONITOR PROGRESS. (3) Arthritis Status: Chronic (4) Back pain Status: Chronic Qualifiers: Back pain location: low back pain Chronicity: chronic Back pain laterality: bilateral Sciatica presence: without sciatica Sciatica laterality: S Qualified Code(s): M54.5 - Low back pain; G89.29 - Other chronic pain (5) Dementia Status: Chronic Qualifiers: Dementia type: vascular dementia Alzheimer's disease onset: A Dementia behavioral disturbance: without behavioral disturbance Qualified Code(s): F01.50 - Vascular dementia without behavioral disturbance
[2017-03-06 12:44] LABS: CREATININE 1.28 mg/dL (0.70-1.30); VANCOMYCIN,TROUGH 12.3 ug/mL (15-20)
[2017-03-06] MEDS ORDERED: NS 250 ML IV 250 ML IV ONE (13:17)
[2017-03-06] MEDS: VANCOMYCIN HCL 500 MG VIAL 750 MG in NS 250 ML IV 250 ML IV SCH (15:46)
[2017-03-06] MEDS: AVODART PO SCH (17:30)
[2017-03-06] MEDS: SEROQUEL TAB 25 MG PO SCH (17:30)
[2017-03-06] MEDS: FLOMAX PO SCH (17:30)
[2017-03-06] MEDS: SINGULAIR TAB 10 MG PO SCH (21:37)
[2017-03-06] MEDS: ZOCOR TAB 40 MG PO SCH (21:38)
[2017-03-07] MEDS: ZOSYN VIAL 3.375 GM 3.375 GM in NS 100 ML IV + SPIKE MINIBAG* 100 ML IV SCH ×4 (00:29→21:27)
[2017-03-07] MEDS: VANCOMYCIN HCL 500 MG VIAL 750 MG in NS 250 ML IV 250 ML IV SCH (05:40)
[2017-03-07] MEDS: ZOVIRAX EXT SCH ×2 (05:42→14:51)
[2017-03-07] MEDS ORDERED: ALLEGRA ONE (08:22)
[2017-03-07] MEDS: DECADRON JET NEB NEB SCH ×4 (08:44→20:46)
[2017-03-07] MEDS: XOPENEX 1.25 MG/3 ML NEB SCH ×4 (08:44→20:47)
[2017-03-07] MEDS: LOVENOX INJ 30 MG SYR SC SCH ×2 (09:18→21:29)
[2017-03-07] MEDS: DIFLUCAN PO SCH (09:18)
[2017-03-07] MEDS: MEGACE PO SCH ×2 (09:18→21:30)
[2017-03-07] MEDS: PEPCID TAB 20 MG PO SCH (09:18)
[2017-03-07] MEDS: NAMENDA TAB 10 MG PO SCH (09:18)
[2017-03-07] MEDS: ASPIRIN EC 81 MG PO SCH (09:18)
[2017-03-07] MEDS: XYLOCAINE VISCOUS MT SCH ×4 (09:18→21:29)
[2017-03-07] MEDS: ROBITUSSIN DM PO SCH ×4 (09:18→21:30)
[2017-03-07] MEDS: TOPROL XL PO SCH (09:18)
[2017-03-07] MEDS: PROTONIX TAB 40 MG PO SCH ×2 (09:18→21:30)
[2017-03-07] MEDS: ALLEGRA PO SCH (09:18)
[2017-03-07] MEDS: FLONASE NASAL SPRAY ENOSTRIL SCH (09:19)
[2017-03-07] MEDS: COLACE CAP 100 MG PO SCH ×2 (09:46→21:30)
[2017-03-07] MEDS: NYSTATIN POWDER TOP SCH (09:46)
[2017-03-07 11:37] LABS: CRYPTOSPORIDIUM PARVUM ANTIGEN NEGATIVE (NEGATIVE); GIARDIA LAMBLIA ANTIGEN NEGATIVE (NEGATIVE)
[2017-03-07] MEDS: FLOMAX PO SCH (17:58)
[2017-03-07] MEDS: SEROQUEL TAB 25 MG PO SCH (17:58)
[2017-03-07] MEDS: AVODART PO SCH (17:58)
[2017-03-07] MEDS: ZOCOR TAB 40 MG PO SCH (21:30)
[2017-03-07] MEDS: TYLENOL 325 MG TAB PO PRN (21:30)
[2017-03-07] MEDS: SINGULAIR TAB 10 MG PO SCH (21:30)
[2017-03-08] MEDS: NYSTATIN POWDER TOP SCH ×3 (01:35→21:33)
[2017-03-08] MEDS: VANCOMYCIN HCL 500 MG VIAL 750 MG in NS 250 ML IV 250 ML IV SCH ×2 (01:35→17:58)
[2017-03-08] MEDS: ZOVIRAX EXT SCH ×5 (01:35→21:32)
[2017-03-08] MEDS: ZOSYN VIAL 3.375 GM 3.375 GM in NS 100 ML IV + SPIKE MINIBAG* 100 ML IV SCH ×3 (05:56→21:32)
[2017-03-08] MEDS: DECADRON JET NEB NEB SCH ×4 (08:47→21:12)
[2017-03-08] MEDS: XOPENEX 1.25 MG/3 ML NEB SCH ×4 (08:47→21:11)
[2017-03-08] MEDS ORDERED: ALLEGRA ONE (10:22)
[2017-03-08] MEDS: ALLEGRA PO SCH (10:30)
[2017-03-08] MEDS: COLACE CAP 100 MG PO SCH ×3 (10:31→21:34)
[2017-03-08] MEDS: ASPIRIN EC 81 MG PO SCH (10:31)
[2017-03-08] MEDS: FLONASE NASAL SPRAY ENOSTRIL SCH (10:32)
[2017-03-08] MEDS: DIFLUCAN PO SCH (10:34)
[2017-03-08] MEDS: LOVENOX INJ 30 MG SYR SC SCH ×2 (10:34→21:31)
[2017-03-08] MEDS: NAMENDA TAB 10 MG PO SCH (10:35)
[2017-03-08] MEDS: TOPROL XL PO SCH (10:36)
[2017-03-08] MEDS: MEGACE PO SCH ×2 (10:36→21:32)
[2017-03-08] MEDS: PEPCID TAB 20 MG PO SCH (10:37)
[2017-03-08] MEDS: PROTONIX TAB 40 MG PO SCH ×2 (10:37→21:32)
[2017-03-08] MEDS: ROBITUSSIN DM PO SCH ×4 (11:00→21:31)
[2017-03-08] MEDS: XYLOCAINE VISCOUS MT SCH ×4 (11:00→21:31)
[2017-03-08] MEDS ORDERED: IMODIUM CAP 2 MG PO ONE (12:17)
[2017-03-08] MEDS: AVODART PO SCH (17:56)
[2017-03-08] MEDS: SEROQUEL TAB 25 MG PO SCH (17:56)
[2017-03-08] MEDS: FLOMAX PO SCH (17:56)
[2017-03-08] MEDS: ZOCOR TAB 40 MG PO SCH (21:31)
[2017-03-08] MEDS: TYLENOL 325 MG TAB PO PRN (21:31)
[2017-03-08] MEDS: SINGULAIR TAB 10 MG PO SCH (21:31)
[2017-03-08] MEDS: IMODIUM CAP 2 MG PO SCH (21:33)
[2017-03-09] MEDS: IMODIUM CAP 2 MG PO SCH ×3 (06:29→22:08)
[2017-03-09] MEDS: ZOVIRAX EXT SCH ×2 (06:29→13:57)
[2017-03-09] MEDS: ZOSYN VIAL 3.375 GM 3.375 GM in NS 100 ML IV + SPIKE MINIBAG* 100 ML IV SCH ×3 (06:29→22:08)
[2017-03-09] MEDS: DECADRON JET NEB NEB SCH ×4 (08:25→21:09)
[2017-03-09] MEDS: XOPENEX 1.25 MG/3 ML NEB SCH ×4 (08:25→21:09)
[2017-03-09] MEDS ORDERED: ALLEGRA ONE (09:17)
[2017-03-09] MEDS: ASPIRIN EC 81 MG PO SCH (10:01)
[2017-03-09] MEDS: PROTONIX TAB 40 MG PO SCH ×2 (10:01→20:16)
[2017-03-09] MEDS: MEGACE PO SCH ×2 (10:01→20:17)
[2017-03-09] MEDS: PEPCID TAB 20 MG PO SCH (10:01)
[2017-03-09] MEDS: DIFLUCAN PO SCH (10:01)
[2017-03-09] MEDS: TOPROL XL PO SCH (10:01)
[2017-03-09] MEDS: NAMENDA TAB 10 MG PO SCH (10:01)
[2017-03-09] MEDS: ALLEGRA PO SCH (10:01)
[2017-03-09] MEDS: ROBITUSSIN DM PO SCH ×4 (10:02→20:22)
[2017-03-09] MEDS: LOVENOX INJ 30 MG SYR SC SCH ×2 (10:02→20:23)
[2017-03-09] MEDS: NYSTATIN POWDER TOP SCH ×2 (10:02→20:24)
[2017-03-09] MEDS: COLACE CAP 100 MG PO SCH ×2 (10:02→20:23)
[2017-03-09] MEDS: FLONASE NASAL SPRAY ENOSTRIL SCH (10:02)
[2017-03-09] MEDS: XYLOCAINE VISCOUS MT SCH ×4 (10:02→20:22)
[2017-03-09] MEDS: VANCOMYCIN HCL 500 MG VIAL 750 MG in NS 250 ML IV 250 ML IV SCH (13:56)
[2017-03-09] MEDS: AVODART PO SCH (17:11)
[2017-03-09] MEDS: FLOMAX PO SCH (17:11)
[2017-03-09] MEDS: SEROQUEL TAB 25 MG PO SCH (17:11)
[2017-03-09] MEDS: SINGULAIR TAB 10 MG PO SCH (20:16)
[2017-03-09] MEDS: TYLENOL 325 MG TAB PO PRN (20:16)
[2017-03-09] MEDS: ZOCOR TAB 40 MG PO SCH (20:17)
[2017-03-10] MEDS: ZOVIRAX EXT SCH ×3 (00:11→13:10)
[2017-03-10] MEDS: IMODIUM CAP 2 MG PO SCH ×2 (05:22→13:09)
[2017-03-10 05:23] LABS: BASOPHILS % (AUTO) 0.2 % (0.2-1.0); EOSINOPHILS % (AUTO) 0.1 % (0.9-2.9); HEMATOCRIT 29.5 % (42.0-54.0); HEMOGLOBIN 9.7 g/dL (13.5-18.0); LYMPHOCYTES # (AUTO) 1.3 X10^3/uL (1.3-2.9); LYMPHOCYTES % (AUTO) 10.9 % (21.0-51.0); MEAN CORPUSCULAR HEMOGLOBIN 30.5 pg (27.0-34.0); MEAN CORPUSCULAR VOLUME 92.6 fL (80.0-100.0); MEAN PLATELET VOLUME 9.8 fL (7.4-11.0); MONOCYTES # (AUTO) 0.9 x10^3/uL (0.3-0.8); MONOCYTES % (AUTO) 7.8 % (0.0-13.0); NEUTROPHILS # (AUTO) 9.8 x10^3/uL (2.2-4.8); PLATELET COUNT 215 X10^3/uL (150.0-450.0); RED BLOOD COUNT 3.19 X10^6/uL (4.7-6.0); RED CELL DISTRIBUTION WIDTH 17.8 % (11.6-16.5); WHITE BLOOD COUNT 12.1 X10^3/uL (3.6-10.0)
[2017-03-10] MEDS: ZOSYN VIAL 3.375 GM 3.375 GM in NS 100 ML IV + SPIKE MINIBAG* 100 ML IV SCH ×2 (05:23→13:09)
[2017-03-10] MEDS: VANCOMYCIN HCL 500 MG VIAL 750 MG in NS 250 ML IV 250 ML IV SCH (05:23)
[2017-03-10 05:29] LABS: ALANINE AMINOTRANSFERASE 49 Units/L (12-78); ALBUMIN 2.8 g/dL (3.4-5.0); ALKALINE PHOSPHATASE 77 Units/L (46-116); ASPARTATE AMINO TRANSFERASE 26 Units/L (15-37); BLOOD UREA NITROGEN 31 mg/dL (7-18); CALCIUM 8.4 mg/dL (8.5-10.1); CARBON DIOXIDE 20.7 mmol/L (21-32); CHLORIDE 110 mmol/L (98-107); COR CA(FOR HYPOALB) 9.4 mg/dL (8.5-10.1); CREATININE 1.22 mg/dL (0.70-1.30); GLUCOSE 103 mg/dL (65-99); SODIUM 143 mmol/L (136-145); TOTAL PROTEIN 5.9 g/dL (6.4-8.2); eGFR BLACK RACES > 60 (>60); eGFR NON BLACK RACES > 60 (>60)
[2017-03-10 05:53] LABS: BAND NEUTROPHILS % 1 % (0-10)
[2017-03-10 05:54] LABS: PLATELET MORPHOLOGY COMMENT NORMAL (NORMAL)
--- NOTE | 2017-03-10 07:21 | RAD ---
HISTORY: Congestion Study: Chest one view Comparison: March 03, 2017 Findings: The trachea is midline. The cardiac silhouette is unremarkable. The aorta is ectatic. The lungs are clear without focal infiltrate or effusion. The bony thorax is unremarkable. IMPRESSION: 1. No acute cardiopulmonary disease. Reported By:
[2017-03-10 08:10] VITALS: BP 155/91
[2017-03-10] MEDS ORDERED: ALLEGRA ONE (08:44)
[2017-03-10] MEDS: ALLEGRA PO SCH (08:49)
[2017-03-10] MEDS: TOPROL XL PO SCH (08:49)
[2017-03-10] MEDS: DIFLUCAN PO SCH (08:49)
[2017-03-10] MEDS: PROTONIX TAB 40 MG PO SCH (08:49)
[2017-03-10] MEDS: PEPCID TAB 20 MG PO SCH (08:50)
[2017-03-10] MEDS: ROBITUSSIN DM PO SCH ×2 (08:50→13:09)
[2017-03-10] MEDS: ASPIRIN EC 81 MG PO SCH (08:50)
[2017-03-10] MEDS: NAMENDA TAB 10 MG PO SCH (08:50)
[2017-03-10] MEDS: MEGACE PO SCH (08:50)
[2017-03-10] MEDS: NYSTATIN POWDER TOP SCH (08:57)
[2017-03-10] MEDS: COLACE CAP 100 MG PO SCH (08:57)
[2017-03-10] MEDS: FLONASE NASAL SPRAY ENOSTRIL SCH (08:57)
[2017-03-10] MEDS: LOVENOX INJ 30 MG SYR SC SCH (08:57)
[2017-03-10] MEDS: XYLOCAINE VISCOUS MT SCH ×2 (08:58→13:09)
[2017-03-10] MEDS: DECADRON JET NEB NEB SCH ×2 (09:15→12:09)
[2017-03-10] MEDS: XOPENEX 1.25 MG/3 ML NEB SCH ×2 (09:15→12:09)
== END 2017-03-10 14:30 | disposition home health service (06) | DRG 949 ==
LOC: MED/SURG 12:45
PROVIDERS: ADMIT Internal Medicine; ATTEND Internal Medicine
DX: Z51.89 Encounter for other specified aftercare (principal); J15.212 Pneumonia due to Methicillin resistant Staphylococcus aureus; S22.41XA Multiple fractures of ribs, right side, initial encounter for closed fracture; S27.321A Contusion of lung, unilateral, initial encounter; B37.0 Candidal stomatitis; R42 Dizziness and giddiness; E86.0 Dehydration; R53.1 Weakness; R07.1 Chest pain on breathing; R26.89 Other abnormalities of gait and mobility; W18.39XA Other fall on same level, initial encounter; R10.11 Right upper quadrant pain; M13.89 Other specified arthritis, multiple sites; G30.8 Other Alzheimer's disease; F02.80 Dementia in other diseases classified elsewhere, unspecified severity, without behavioral disturbance, psychotic disturbance, mood disturbance, and anxiety; F01.50 Vascular dementia, unspecified severity, without behavioral disturbance, psychotic disturbance, mood disturbance, and anxiety; K20.8 Other esophagitis; K29.60 Other gastritis without bleeding; J01.80 Other acute sinusitis; J20.8 Acute bronchitis due to other specified organisms; R11.2 Nausea with vomiting, unspecified; R00.0 Tachycardia, unspecified; B00.1 Herpesviral vesicular dermatitis; M54.5 Low back pain; E88.09 Other disorders of plasma-protein metabolism, not elsewhere classified; I51.7 Cardiomegaly; K59.09 Other constipation; R29.6 Repeated falls; R06.02 Shortness of breath; N40.0 Benign prostatic hyperplasia without lower urinary tract symptoms
CPT/HCPCS: 36415; 71010; 80053; 80202; 82270; 82565; 85025; 87045; 87205; 87328; 87329; 87336; 87427; 87493; 87899; 88305; 97535; A4216; A4222; B4189; S0179; J1650; J1815; J2543; J3370; J7620

== ENCOUNTER → 2018-01-12 | Outpatient (CLI) | payer OTHER ==
[~2018-01-12] MED LIST: NS 100 ML IV 0 ML IV ONE
[2018-01-12 09:55] LABS: CREATININE 1.77 mg/dL (0.70-1.30)
--- NOTE | 2018-01-13 10:23 | MRI ---
Indication: Mental status changes and dizziness Exam: MRA brain without contrast. Technique: 3D [id number] images were obtained of the intracranial vessels . The raw data was revi ewed and 3D reconstructions were performed. Findings: Both internal carotid arteries are patent normal caliber. The carotid siphons are unremarka ble. There is a normal bifurcation intracranially. There is minimal tapering of the peripheral MCA ve ssels with no proximal filling defect or vessel cut off. The anterior cerebral arteries are patent no rmal caliber. There is a dominant right vertebral artery. The basilar artery is small in size but aixa ears patent throughout and tapers distally with a circulation involving both posterior cerebral arteries . There is mild attenuation of the peripheral BAIT TIER vessels. There is no vascular malformatio n or aneurysm seen. Impression: circulation involving both posterior cerebral arteries which is a normal variant. Minimal atherosclerotic narrowing of the peripheral MCA and BAIT TIER vessels otherwise, unremarkable. Reported By:
--- NOTE | 2018-01-13 11:32 | MRI ---
Indication: Back pain Exam: MRI lumbar spine without contrast. Technique: Routine multiplanar multisequence imaging was performed through the lumbar spine. Findings: The lumbar vertebra are well aligned. There is moderate disc space narrowing throughout wit h diffuse moderate disc desiccation which is most severe at the L2-3 and L5-S1 levels. No fracture or subluxation is seen. There are prominent osteophytes at L2-3. N the vertebral body height is well ma intained throughout. The conus is normal. There is a small central disc bulge at L2-3 causing mild du ral sac effacement anteriorly. There is a small central disc bulge at L3-4 causing mild dural sac eff acement anteriorly . There are minimal central disc bulges at L4-5 and L5-S1 causing minimal dural sa c effacement . There are moderate hypertrophic changes of the facets throughout with ligament flavum hypertrophy causing minimal spinal stenosis inferiorly. There are no pars defects. The paravertebral soft tissues are normal. Impression: Moderately severe multilevel degenerative disc disease which is most prominent at L2-3 and L5-S1 with no acute abnormality seen . Small central disc bulges at L2-3 and L3-4 Minimal central disc bulges at L4-5 and L5-S1. Moderate osteoarthritic changes of facets throughout causing minimal spinal stenosis throughout. Reported By:
--- NOTE | 2018-01-13 15:13 | MRI ---
Indication: Mental status changes and dizziness paragraphs Exam: MRA neck without contrast. Technique: 2D [id number] images were obtained of the neck vessels. The raw data was reviewed and 3D reconstructions were performed. Findings: Both common carotid arteries are patent and normal caliber . There is a normal bifurcation bilaterally . There are moderate focal filling defects along the posterior wall of both proximal inte rnal carotid arteries causing 40-50% narrowing bilaterally. There is good flow in both internal carot id arteries to the base of the skull. Both vertebral arteries are patent and normal caliber to the ba se of the skull. No dissection is seen. Both external carotid arteries are patent and normal caliber. Impression: Probable atherosclerotic plaque along the posterior renae of both bifurcations causing narrowing fortino g both proximal internal carotid arteries in the range of 40-50%. Recommend ultrasound correlation. Unremarkable vertebral arteries. Reported By:
--- NOTE | 2018-01-14 12:00 | MRI ---
HISTORY: Thoracic spine pain, abnormal gait Study: MRI thoracic spine without contrast Comparison: None Technique: Multisequence, multiplanar imaging of the thoracic spine was performed without the administration of IV contrast. Findings: Imaging of the thoracic spine demonstrates normal vertebral alignment. There is no spondylolisthesis. There are chronic compression fractures involving the T1 and T2 vertebral bodies, both of which demo nstrate approximately 20-30% loss of vertebral body height anteriorly. No retropulsion of fracture fr agments is identified. No acute or early subacute compression fracture is visualized within the thora cic spine. There is no bone marrow edema. Multilevel disc desiccation is noted. He however, disc spac e height is relatively maintained throughout. Minimal degenerative endplate changes are identified. I ncidental note is made of a benign intraosseous hemangioma within the T7 vertebral body. An additiona l smaller hemangioma is present within the T11 vertebral body. There is multilevel facet arthropathy. Multilevel thoracic disc ridging is visualized without disc herniation or large disc bulge. There is no canal stenosis. There appears to be a moderate right and mild left neuroforaminal compromise at t he T1-T2 level secondary to facet arthropathy. Very mild bilateral neuroforaminal compromise is visua lized at the T2-T3 level as well. At the T8-T9 level there appears to be mild neuroforaminal compromi se on the left. Mild neuroforaminal compromise on the right at the T9-T10 level is noted as well. At the T2 and T11 level there is bilateral mild neuroforaminal compromise. At the T11-T12 level there ap pears to be moderate bilateral neuroforaminal compromise. Thoracic cord signal is normal throughout. Evaluation of the pre and paravertebral soft tissues demonstrates tiny bilateral pleural effusions. IMPRESSION: 1. Chronic compression fractures involving the T1 and T2 vertebral bodies. No acute or early subacute compression fracture present. 2. 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 3. Tiny bilateral pleural effusions. Reported By:
== END | disposition home or self-care (01) | DRG 304 ==
LOC: RAD 09:19
PROVIDERS: ATTEND Neurological Surgery
DX: I10 Essential (primary) hypertension (principal); Q28.3 Other malformations of cerebral vessels; J90 Pleural effusion, not elsewhere classified; R42 Dizziness and giddiness; R51 Headache; M54.6 Pain in thoracic spine; T14.8XXA Other injury of unspecified body region, initial encounter; X58.XXXA Exposure to other specified factors, initial encounter; M48.061 Spinal stenosis, lumbar region without neurogenic claudication
CPT/HCPCS: 36415; 70544; 70547; 72146; 72148; 82565; 84520

== ENCOUNTER → 2018-02-09 | Outpatient (CLI) | payer OTHER ==
--- NOTE | 2018-02-09 14:22 | VAS ---
HISTORY: Dizziness, giddiness Study: Carotid ultrasound Comparison: None Technique: Multiple jang scale and color flow Doppler images of the right and left carotid arterial s ystem were obtained. The vertebral arterial system was evaluated as well. Findings: The peak systolic velocity of the right ICA is 93 cm/sec. The peak systolic velocity of the left ICA is 75 cm/sec. The ICA/CCA ratio on the right is 1.8. The ICA/CCA ratio on the left is 1.1. Bilateral antegrade vertebral flow was noted. Bilateral thyroid cysts/hypoechoic nodules are noted and may be further evaluated with dedicated thyroid ultrasound. IMPRESSION: No hemodynamically significant stenosis is appreciated. Bilateral thyroid cysts/nodules which may be further evaluated with dedicated thyroid ultrasound. Reported By:
== END ==
LOC: RAD 10:41
PROVIDERS: ATTEND Physician Assistant Medical
DX: R42 Dizziness and giddiness (principal)
CPT/HCPCS: 93880